=== PATIENT | female | born 1945 | race Caucasian/White ===

== ENCOUNTER → 2018-05-03 07:53 | Outpatient (CLI) | payer MEDICARE, OTHER, SELFPAY ==
--- NOTE | 2018-05-03 | IMM_PTH ---
PATIENT: CYNTHIA WILLS LOC: [facility] U#:[id number] AGE/SX: 79/F ROOM: RE05/03/[address]: Dr. Branden Holloway MD : 1945 BED: DIS: SPEC #: [id number] RECD: 05/04/18 12:13 STATUS: SANDRA REQ #: [id number] NAIMA: 05/03/18 00:[address]: Branden Holloway DEPT: IMMUNOHISTOCHEMISTRY RECD BY: Yudy Azul ENTERED: 05/04/18 12:14 SP TYPE: IMMUNO OTHR DR: Dr. Temi Santos MD Tissues: Right breast, NOS Procedures: CALPONIN-1 (add) CK5-6 (add) CK8 (add) E-CAD (add) HER2 MORE (add) KI-67 (add) P53 (add) VA (add) P40 (add) ER (initial) PHYSICIAN & INSTITUTION [place] [id number] SPECIMEN INFORMATION: Tissue Source: Right breast Clinical Info: Right breast density, mid-depth, 5 o'clock Specimen Number: [id number] #2 CPT code: 38139, 26835 x6, 30909 x3 METHODOLOGY: Deparaffinized sections of prefer/formalin-fixed tissue or PAP/DQ stained slides are incubated with monoclonal/polyclonal antibodies/oligonucleotide probes. Localization is made via biotin free immunoperoxidase method. Appropriate controls are performed and reacted as expected. Results on target cell population are indicated in the following table: RESULTS: ANTIBODY / CLONE RESULT E-Cad (ECH-6) positive CK8 (64bmfeI32) positive CK5-6 (D5 & 1684) negative Ki-67 (30-9) positive, moderate P53 (DO-7) positive, a few cells, weak P40 (BC28) negative Calponin-1 (OP370S) negative MORPHOMETRIC ANALYSIS ER (clone 6F11) >95%, strong VA (clone 16/1E2) 10%, weak Her-2Neu (clone CB11) 1+ The prognostic test for HER2 is performed on formalin-fixed paraffin embedded tissue. A 3+ (positive) staining pattern is defined as intense, homogeneous, complete, circumferential membranous staining in >10% of contiguous tumor cells. A similar weak (2+) staining pattern is interpreted as equivocal. JANNET follow-up testing is recommended for all equivocal cases. Positivity/negativity for ER/VA is reported if > or < 1% of the tumor cells are immuno- reactive, respectively. The ASCO/CAP criteria is used for scoring. Reference: Journal of Clinical Oncology, 2013; 31:0367-9717 & 2010; 16:1372-1242. Duration of fixation: 10 Hrs; Sample Adequate: Yes. These assays have not been validated on decalcified tissues. Results should be interpreted with caution given the likelihood of false negativity on decalcified specimens. These tests were developed and their performance characteristics determined by [facility]. They may not have been cleared or approved by the U.S. Food and Drug Administration. The FDA has determined that such clearance or approval is not necessary. INTERPRETATION: Right breast, stereotactic core biopsy: Invasive ductal carcinoma, nuclear grade 2-3. Positive for estrogen receptors (favorable prognostic indicator). Positive for progesterone receptors (favorable prognostic indicator). Negative for overexpression of DVJ3rdq. SJ:rosa 05/04/18
--- NOTE | 2018-05-03 08:06 | BI_ITS ---
STEREOTACTIC CORE BIOPSY REASON FOR EXAM: Female, 72 years old. Irregular nodular density in the inferior deep medial portion of the right breast. PERTINENT HISTORY: Non-contributory. COMPARISON: None. TECHNIQUE: (All elements of maximal sterile barrier technique followed, including US elements as applicable) Upon arrival to the breast imaging department the patient's identification was confirmed and the RIGHT breast was marked according to time-out protocol. Stereotactic core biopsy and clip placement, to include potential risks and complications, was explained in full to the patient. Written and verbal consent were obtained prior to initiation of the procedure. The patient was placed in prone position on the stereotactic biopsy table with the RIGHT breast in craniocaudal compression. Crabber and stereotactic views were then obtained for targeting. The RIGHT breast was prepped and draped in standard sterile fashion and local anesthesia was obtained with 1% buffered lidocaine. A small dermatotomy was then made to introduce the core biopsy needle. Multiple core samples were obtained with a 8 gauge vacuum assisted core biopsy needle. . A titanium clip was then deployed into the biopsy cavity. Upon completion of the procedure hemostasis was obtained and sterile dressing was applied. The patient tolerated the entire procedure without immediate complication and was discharged from the breast imaging department in good condition. BI/Stereo Breast Biopsy 1st Archie IMPRESSION: Stereotactic core biopsy for irregular nodule in the RIGHT breast without complication. Electronically Signed: Star Salas MD at 10:17 EST Tel [phone], Service support ,
--- NOTE | 2018-05-03 08:45 | BRBX_PTH ---
PATIENT: CYNTHIA WILLS LOC: [facility] U#:[id number] AGE/SX: 79/F ROOM: RE05/03/[address]: Dr. Branden Holloway MD : 1945 BED: DIS: SPEC #: [id number] RECD: 05/03/18 09:41 STATUS: SANDRA BRIAN #: [id number] NAIMA: 05/03/18 08:[address]: Branden Holloway DEPT: SURGICAL PATHOLOGY RECD BY: Sandra Ventura ENTERED: 05/03/18 11:47 SP TYPE: BREAST BX OTHR DR: Dr. Temi Santos MD Tissues: Right breast, NOS Procedures: Surgery Specimen Level IV HEADER OPERATION: Right breast stereotactic biopsy PRE-OP DIAGNOSIS: Right breast density mid-depth 4 `o'clock TISSUE SUBMITTED: Right breast, core tissue ISCHEMIC TIME: 1 minute FIXATION TIME: 10 hours MICROSCOPIC DIAGNOSIS Right breast, mid-depth 4 `o'clock density, stereotactic core biopsy: Invasive ductal carcinoma, nuclear grade 2-3 (0.2 cm in greatest length). See comment. PANCHO:rosa 05/04/18 COMMENT Immunohistochemistry ([id number]) supports the above diagnosis. ER/AR/Bge3xsu studies are being performed on sections of tumor and the results from this study will be reported separately ([id number]). Focal calcification is noted in the benign breast tissue. Case has been reviewed in consultation with Dr. Fan who concurs with the above diagnosis. IDC:AM MICROSCOPIC DESCRIPTION Slides are reviewed. GROSS DESCRIPTION Received is one container labeled with the patient's name and not further designated. The specimen consists of multiple elongated fragments of rivas-yellow fibroadipose tissue that in aggregate measure 5 x 3 x 0.3 cm. The entire specimen is submitted in two cassettes. / PANCHO:rosa 05/03/18 TC:0 CPT: 31657
--- OUTSIDE RECORDS SUMMARY | 2018-06-28 12:26 | XMS RPT_ITS ---
:1945 Author Organization OHIP Support Name Relationship Address Phone MUKUND VELARDE Unavailable [address] + [place], [place] [phone] NOT GIVEN Unavailable MINISTRIES Unavailable ESTELLA ESPINOSA Unavailable [address] + [place] [address] DEBRA VELARDE Unavailable . + [place] [address] R Unavailable Unavailable Unavailable NOT GIVEN Unavailable MINISTRIES Unavailable VELARDEGENNAROMUKUND Unavailable [address] + [place], [place] [phone] NOT GIVEN Unavailable MINISTRIES Unavailable ESTELLA ESPINOSA Unavailable [address] + [place] [address] DEBRA VELARDE Unavailable Unavailable + R Unavailable Unavailable Unavailable VELARDE MUKUND Unavailable [address] + [place], [place] [phone] NOT GIVEN Unavailable MINISTRIES Unavailable VELARDE MUKUND Unavailable [address] + [place], [place] [phone] NOT GIVEN Unavailable MINISTRIES Unavailable VELARDE MUKUND Unavailable [address] + [place], [place] [phone] NOT GIVEN Unavailable MINISTRIES Unavailable VELARDE MUKUND Unavailable [address] + [place], [place] [phone] NOT GIVEN Unavailable MINISTRIES Unavailable NOT GIVEN Unavailable MINISTRIES Unavailable VELARDE MUKUND Unavailable [address] + [place], [place] [phone] NOT GIVEN Unavailable MINISTRIES Unavailable VELARDE MUKUND Unavailable [address] + [place], [place] [phone] NOT GIVEN Unavailable MINISTRIES Unavailable VELARDE, MUKUND Unavailable [address] + [place], [place] [phone] NOT GIVEN Unavailable MINISTRIES Unavailable Mary Howe Unavailable Unavailable + Velarde, Mukund Unavailable Unavailable + VELARDE, MUKUND Unavailable [address] + [place], [place] [phone] NOT GIVEN Unavailable MINISTRIES Unavailable NOT GIVEN Unavailable MINISTRIES Unavailable VELARDE, MUKUND Unavailable [address] + [place], [place] [phone] NOT GIVEN Unavailable MINISTRIES Unavailable Care Team Providers Name Role Phone Nathan Vidales Attending Unavailable PROVIDER, UNKNOWN Referring Unavailable No, PCP Primary Care Unavailable GEORGES CHÁVEZ Attending Unavailable GEORGES CHÁVEZ Referring Unavailable NATHAN NG JR Attending Unavailable GEORGES CHÁVEZ Referring Unavailable CINTHYA VELARDE Admitting Unavailable CINTHYA VELARDE Attending Unavailable SUKI SANTOS MD Referring Unavailable SUKI SANTOS MD Consulting Unavailable VELARDE, CINTHYA Primary Care Unavailable PROVIDER, UNKNOWN Consulting Unavailable PROVIDER, UNKNOWN Consulting Unavailable PROVIDER, UNKNOWN Consulting Unavailable SUKI SANTOS MD Admitting Unavailable SUKI SANTOS MD Attending Unavailable SUKI SANTOS MD Consulting Unavailable SUKI SANTOS MD Primary Care Unavailable PROVIDER, UNKNOWN Consulting Unavailable PROVIDER, UNKNOWN Consulting Unavailable PROVIDER, UNKNOWN Consulting Unavailable SUKI SANTOS MD Admitting Unavailable SUKI SANTOS MD Attending Unavailable SUKI SANTOS MD Primary Care Unavailable SUKI SANTOS MD Consulting Unavailable PROVIDER, UNKNOWN Consulting Unavailable PROVIDER, UNKNOWN Consulting Unavailable PROVIDER, UNKNOWN Consulting Unavailable VELARDE CINTHYA Admitting Unavailable VELARDE CINTHYA Attending Unavailable SUKI SANTOS MD Consulting Unavailable VELARDE, CINTHYA Primary Care Unavailable PROVIDER, UNKNOWN Consulting Unavailable PROVIDER, UNKNOWN Consulting Unavailable PROVIDER, UNKNOWN Consulting Unavailable OSMIN Admitting Unavailable OSMIN Attending Unavailable SUKI SANTOS MD Consulting Unavailable OSMIN Primary Care Unavailable PROVIDER, UNKNOWN Consulting Unavailable PROVIDER, UNKNOWN Consulting Unavailable PROVIDER, UNKNOWN Consulting Unavailable VELARDE, CINTHYA Admitting Unavailable PRACHI CINTHYA Attending Unavailable SUKI SANTOS MD Consulting Unavailable VELARDE, CINTHYA Primary Care Unavailable PROVIDER, UNKNOWN Consulting Unavailable PROVIDER, UNKNOWN Consulting Unavailable PROVIDER, UNKNOWN Consulting Unavailable SUKI SANTOS MD Admitting Unavailable LATOUVirgen, SUKI COUCH Attending Unavailable VELARDE, CINTHYA Referring Unavailable LATOUF, SUKI COUCH Consulting Unavailable LATOUF, SUKI COUCH Primary Care Unavailable PROVIDER, UNKNOWN Consulting Unavailable PROVIDER, UNKNOWN Consulting Unavailable PROVIDER, UNKNOWN Consulting Unavailable LATOUF, SUKI COUCH Admitting Unavailable LATOUF, SUKI COUCH Attending Unavailable LATOUVirgen, SUKI COUCH Consulting Unavailable LATOUVirgen, SUKI COUCH Primary Care Unavailable PROVIDER, UNKNOWN Consulting Unavailable PROVIDER, UNKNOWN Consulting Unavailable PROVIDER, UNKNOWN Consulting Unavailable VELARDE, CINTHYA Admitting Unavailable VELARDE, CINTHYA Attending Unavailable LATOUF, SUKI COUCH Consulting Unavailable VELARDE, CINTHYA Primary Care Unavailable PROVIDER, UNKNOWN Consulting Unavailable PROVIDER, UNKNOWN Consulting Unavailable PROVIDER, UNKNOWN Consulting Unavailable VELARDE, CINTHYA Admitting Unavailable VELARDE, CINTHYA Attending Unavailable LATOUF, SUKI COUCH Consulting Unavailable VELARDE, CINTHYA Primary Care Unavailable PROVIDER, UNKNOWN Consulting Unavailable PROVIDER, UNKNOWN Consulting Unavailable PROVIDER, UNKNOWN Consulting Unavailable LATOUF, SUKI COUCH Admitting Unavailable LATOUF, SUKI COUCH Attending Unavailable PAUL BURR Referring Unavailable LATOUF, SUKI COUCH Consulting Unavailable LATOUF, SUKI COUCH Primary Care Unavailable PROVIDER, UNKNOWN Consulting Unavailable PROVIDER, UNKNOWN Consulting Unavailable PROVIDER, UNKNOWN Consulting Unavailable LATOUVirgen, SUKI COUCH Admitting Unavailable LATOUF, SUKI COUCH Attending Unavailable LATOUF, SUKI COUCH Consulting Unavailable LATOUF, SUKI COUCH Primary Care Unavailable PROVIDER, UNKNOWN Consulting Unavailable PROVIDER, UNKNOWN Consulting Unavailable PROVIDER, UNKNOWN Consulting Unavailable LATOUF, SUKI COUCH Admitting Unavailable LATOUF, SUKI COUCH Attending Unavailable LATOUVirgen, SUKI COUCH Consulting Unavailable LATOUVirgen, SUKI COUCH Primary Care Unavailable PROVIDER, UNKNOWN Consulting Unavailable PROVIDER, UNKNOWN Consulting Unavailable PROVIDER, UNKNOWN Consulting Unavailable VELARDE, CINTHYA Admitting Unavailable VELARDE, CINTHYA Attending Unavailable LATOUF, SUKI COUCH Consulting Unavailable VELARDE, CINTHYA Primary Care Unavailable PROVIDER, UNKNOWN Consulting Unavailable PROVIDER, UNKNOWN Consulting Unavailable PROVIDER, UNKNOWN Consulting Unavailable Sherrell Calvillo Attending Unavailable VELARDE, CINTHYA Referring Unavailable VELARDE, CINTHYA Attending Unavailable LATOUF, BUTROS Primary Care Unavailable PROBLEMS PROBLEMS DATE TYPE CONDITION / CODE ATTENDING STATUS SOURCE 05/23/2018 Unknown I34.1 - Sherrell Calvillo Nonrheumatic mitral Community (valve) prolapse / Hospital I34.1(ICD-10) Repository 05/23/2018 Unknown C50.311 - Malignant Sherrell Calvillo neoplasm of [facility] Hospital quadrant of right Repository female breast / C50.311(ICD-10) 05/23/2018 Unknown Z17.0 - Estrogen Sherrell Calvillo Active [facility] receptor positive Community status [ER+] / Hospital Z17.0(ICD-10) Repository 05/16/2018 Principle Abnormal finding of LATOUF, BUTROS Active Asaf Pomerene Diagnosis blood chemistry, [facility] unspecified / Hospital R799(ICD-10) Repository 05/16/2018 Principle Essential (primary) LATOUF, BUTROS Active Asaf Pomerene Diagnosis hypertension / [facility] I10(ICD-10) Hospital Repository 05/16/2018 Secondary Pure LATOUF, BUTROS Active Asaf Pomerene Diagnosis hypercholesterolemi [facility] a, unspecified / Hospital E7800(ICD-10) Repository 05/16/2018 Secondary Hypothyroidism, LATOUF, BUTROS Active As[facility] Pomerene Diagnosis unspecified / [facility] E039(ICD-10) Hospital Repository 05/03/2018 Unknown R92.8 - Other CINTHYA VELARDE Active [place] abnormal and Community inconclusive Hospital findings on Repository diagnostic imaging of breast / R92.8(ICD-10) 04/22/2018 Admitting Essential (primary) LATOUF, BUTROS Active Asaf Pomerene Diagnosis hypertension / [facility] I10(ICD-10) Hospital Repository 04/04/2018 Admitting Other abnormal and LATOUF, BUTROS Active Asaf Pomerene Diagnosis inconclusive [facility] findings on Hospital diagnostic imaging Repository of breast / R928(ICD-10) 04/04/2018 Principle Other abnormal and LATOUF, BUTROS Active [facility] Diagnosis inconclusive [facility] findings on Hospital diagnostic imaging Repository of breast / R928(ICD-10) 11/01/2017 Admitting Neoplasm of CINTHYA VELARDE Active [facility] Diagnosis uncertain behavior [facility] / Hospital D4862(ICD-10) Repository 11/01/2017 Principle Neoplasm of CINTHYA VEALRDE Active [facility] Diagnosis uncertain behavior [facility] of [facility] breast / Hospital D4862(ICD-10) Repository 11/01/2017 Secondary Neoplasm of CINTHYA VELARDE Active [facility] Diagnosis uncertain behavior [facility] of right breast / Hospital D4861(ICD-10) Repository 10/18/2017 Admitting 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, [facility]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 [facility] / I18931(ICD-10) Hospital Repository 10/18/2017 Principle 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, left eye [facility] / V07514(ICD-10) Hospital Repository 09/16/2017 Admitting Unspecified visual Nathan Vidales Active [facility] Diagnosis loss / System H54.7(ICD-10) Repository 09/16/2017 Admitting Unspecified retinal Nathan Vidales [facility] Diagnosis disorder / System H35.9(ICD-10) Repository 08/23/2017 Active Unknown / VOGELBAUM, Active Ying UNK(Unknown) [facility] [place] Repository 08/11/2017 Principle 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 / [facility] D320(ICD-10) Hospital Repository 07/19/2017 Admitting Gastro-esophageal CINTHYA VELARDE Active [facility] Diagnosis reflux disease [facility] without esophagitis Hospital / K219(ICD-10) Repository 07/19/2017 Principle Polyp of stomach CINTHYA VELARDE Active Asaf Pomerene Diagnosis and duodenum / [facility] K317(ICD-10) Hospital Repository 07/19/2017 Secondary Gastritis, CINTHYA VELARDE Active [facility] Diagnosis unspecified, [facility] without bleeding / Hospital K2970(ICD-10) Repository 07/19/2017 Secondary Diaphragmatic CINTHYA VELARDE Active [facility] P[facility] Diagnosis hernia without [facility] obstruction or Hospital gangrene / Repository K449(ICD-10) 07/19/2017 Secondary Esophagitis, CINTHYA VELARDE Active Asaf Pomerene Diagnosis unspecified / [facility] K209(ICD-10) Hospital Repository 07/19/2017 Secondary Essential (primary) CINTHYA VELARDE Active Asaf Pomerene Diagnosis hypertension / [facility] I10(ICD-10) Hospital Repository PROCEDURES PROCEDURES No Procedure Records FoundRESULTS RESULTS NM BONE SCAN WHOLE Observed: 05/23/2018 Status: F Source: [facility] BODY 2:27 PM [facility] REPOSITORY [place] [address] Patient: CYNTHIA MELENDEZ Phone#: : 1945 Age: 72 Gender: F Pt. Type: Out Account: [id number] Location: [id number] Ordering: CINTHYA VELARDE Exam Date: 05/23/2018/11:55 Family Phys: SUKI SANTOS Charge Code: [id number] Physician: SHERRELL CALVILLO [place] Order #: [id number] DLP Dose#: PROCEDURE: BONE SCAN WHOLE BODY COMPARISON: None. INDICATIONS: Right breast cancer TECHNIQUE: After obtaining the patient's consent, 24.9 mCi Technetium 99m MDP was injected intravenously. Images were obtained approximately two hours later. PHARMACEUTICAL: Technetium 99m MDP (see dose listed above). FINDINGS: ABNORMALITIES: Minimal increased radiopharmaceutical activity is present at the knees and ankles bilaterally and is consistent with degenerative process. No other abnormal foci of radiopharmaceutical activity are identified. OTHER: Negative. CONCLUSION: 1. Findings consistent with degenerative change at the knees and ankles bilaterally. 2. No other abnormal foci are identified. Dictated by: Magaly Snyder MD on 05/23/2018 at 15:08 Approved by: Magaly Snyder MD on 05/23/2018 at 15:08 SURGERY VISIT REPORT Observed: 05/22/2018 Status: F Source: [place] 5:13 PM [facility] [address] [place] [address]. [address] [place] [address] OFFICE VISIT Date of Service: 05/22/18 MR#: [id number] Acct: [id number] Name: CYNTHIA MELENDEZ Rep #: [id number] : 1945 Provider: Sherrell Calvillo MD Age/Sex: 72/F Location: [facility] Status: Signed Intake Vital Signs05/22/18 Height 1 in 05/22/18 Weight: 146 lb 2 oz 05/22/18 Body Mass Index (BMI) 009760.9 05/22/18 Blood Pressure 142/83 H Intake Visit Reasons: INVASIVE DUCTAL CARCINOMA R BRST Chief Complaint: right breast cancer On Air Announcer Required: No Is patient in pain?: No Allergies aspirin [ASA] Allergy (Severe, Verified 05/22/18 15:12) respiratory distress meperidine [From Demerol] Adverse Reaction (Intermediate, Verified 05/22/18 15:12) GI upset morphine Adverse Reaction (Mild, Verified 05/22/18 15:12) GI upset Medications calcium carbonate 500 mg calcium (1,250 mg) chewable tablet 500 mg PO BID tab 05/22/18 [History Confirmed 05/22/18] cholecalciferol (vitamin D3) 400 unit capsule 800 unit PO DAILY cap 05/22/18 [History Confirmed 05/22/18] chondroitin sulfate A 250 mg capsule 250 mg PO BID 05/22/18 [History Confirmed 05/22/18] glucosamine HCl 1,500 mg tablet 1,500 mg PO DAILY 05/22/18 [History Confirmed 05/22/18] levothyroxine 75 mcg capsule 75 mcg PO DAILY 05/22/18 [History Confirmed 05/22/18] metoprolol succinate ER 25 mg capsule sprinkle, ext. release 24 hr 12.5 mg PO DAILY ea 05/22/18 [History Confirmed 05/22/18] omega-3 fatty acids 1,000 mg capsule 1,000 mg PO DAILY 05/22/18 [History Confirmed 05/22/18] pantoprazole 40 mg tablet,delayed release 40 mg PO DAILY 05/22/18 [History Confirmed 05/22/18] vitamin B complex tablet 1 tab PO DAILY 05/22/18 [History Confirmed 05/22/18] vitamin E mixed 400 unit capsule unit PO cap 05/22/18 [History Confirmed 05/22/18] Is last menstrual period known: No Post menopausal: Yes Patient : No PFSH Medical History Breast cancer, right (Acute) Breast cancer (Acute 04/2018) Cardiac murmur (Acute) GERD (gastroesophageal reflux disease) (Acute) Hemorrhoids (Acute) Hypothyroidism (Acute) MVP (mitral valve prolapse) (Acute) HTN (hypertension) (Chronic) Surgical History History of back surgery (Acute) History of breast biopsy (Acute) History of cholecystectomy (Acute) History of eye surgery (Acute) History of repair of right rotator cuff (Acute) Family History Mother Breast cancer Sister Cancer pancreas Father Heart disease Social History Smoking Status: Never smoker HPI HPI HPI: CYNTHIA MELENDEZ, is a 72 F who presents to the office today for surgical care regarding biopsy-proven lower inner quadrant right breast cancer. The patient has had recent care at [facility] in [facility]. August 2017 she had screening mammography. I do not yet have a disc of those results. August 17, 2017 a right breast ultrasound suggested that there is a solid appearing mass likely benign 10 o'clock position right breast 5 x 4 x 7 mm and in the right breast there was a simple benign-appearing cyst at 3 o'clock position. The finding however does not appear to correlate with the mammogram finding and a MRI was recommended. Subsequently on November 01, 2017 a bilateral breast MRI was obtained. This demonstrated in the lower inner right breast a 9 x 9 x 8 mm irregular marginated mass correlating with the mammographic finding with mild spiculation. This was felt to be suspicious for neoplasm. Surgical biopsy with mammographic guided wire localization was recommended. It is of additional note that in the mid upper outer right breast there is a 5 mm mildly lobulated smoothly marginated density. Findings were felt to be more consistent with a benign lesion including an intramammary lymph node. November 18, 2017 the patient had a wire localized excisional biopsy upper inner right breast. Final pathology showed no evidence of atypical hyperplasia or malignancy. The patient states that in order to stay in line with her routine imaging she subsequently had bilateral mammograms read on March 28, 2018. The left breast was not felt to be remarkable. The right breast was felt to have a lower inner right breast 4 o'clock position 10 x 10 x 11 mm density which was felt to be suspicious Subsequently per on May 03, 2018 the patient underwent a stereotactic needle core biopsy lower inner right breast. Final pathology shows invasive ductal carcinoma nuclear grade 2-3 0.2 cm in greatest length. This was right breast 4 o'clock position mid depth. Estrogen receptors greater than 95%. Progesterone receptor 10% weak. HER-2/mirella 1+. 72-year-old female. G0. Menarche at age 12. Family history notable for that her mother had breast cancer. The patient had been on estrogen replacement therapy but stopped at age 52. She states that in 1979 she had remote bilateral breast excisional biopsies which were benign. Her other pertinent past medical history includes a history of mitral valve prolapse. She states that she has not had an echocardiogram for approximately 10 years. She presents here to discuss whether she proceeds with a right mastectomy or possible breast conservation surgery Surgeon is Dr. Cinthya Velarde and her primary care physician is . ROS General General: Yes breast cancer; no weight change, appetite, fatigue, colon cancer or weakness HEENT HEENT: Yes eye injury; no difficulty swallowing, eye surgery, swollen glands or hoarseness Endo Endocrine: No thyroid disease, diabetes mellitus, thyroid cancer, Hair loss, heat intolerance or cold intolerance Breast Breast: Yes abnormal mammogram and abnormal US; no left breast lump, right breast lump, nipple discharge, breast pain or breast enlargement Cardio Cardiovascular: Yes murmur; no pacemaker, heart disease, atrial fibrillation, high blood pressure, heart attack, heart stent, palpitations, shortness of breat with exertion or chest pain Resp Respiratory: No shortness of breath, No sleep apnea, No cough, No COPD, No asthma, No emphysema, No wheezing Gastro Gastrointestinal: No abdominal pain, No nausea or vomiting, No diarrhea, No constipation, No blood in stool, No acid reflux, Yes hemorrhoids, No ulcers, No gallbladder problem, No black,tarry stools Eric Hematologic: No blood thinners, No blood disorders, No bleeding, No anemia, No blood clots Neuro Neurologic: No weakness Exam Const General: cooperative, healthy appearing, comfortable, no acute distress Nutritional Appearance: average body habitus Orientation: alert, awake, oriented x3 HENMT Head: normal to inspection Chest Breast Palpation: No nipple discharge Other: Right breast: Nicely healed curvilinear circumareolar incision 12:00 right breast. Nondescript fibrous change lower inner right breast. No clear distortion. Evidence of some soft tissue loss upper inner right breast. No palpable axillary or clavicular adenopathy. No nipple discharge. Resp Effort AND Inspection: normal respiratory effort Auscultation: clear to auscultation bilaterally Cardio Rate: regular rate Rhythm: regular rhythm Heart Sounds: murmur Other: Soft 2/6 systolic ejection murmur GI Inspection: normal to inspection Palpation: soft, no hepatosplenomegaly Auscultation: normal bowel sounds Musc Cervical Spine: normal cervical lordosis Skin General: no rashes or lesions noted Neuro Cranial Nerves: CN's II-XI intact bilaterally Extrem General: no clubbing, cyanosis or edema Psych Affect: normal affect Assessment AND Plan Problems 1. Malignant neoplasm of lower-inner quadrant of right breast of female, estrogen receptor positive C50.311; Z17.0 Plan Invasive ductal carcinoma lower inner right breast. The patient on MRI has what is suggested to be a benign small finding in the upper outer right breast. Previous ultrasound also suggests similar finding. Patient has a history of mitral valve prolapse I had an extensive discussion with patient today regarding treatment options. In detail I discussed with her the technique of stereotactic wire localization lower inner right breast with subsequent lumpectomy and right axillary nuclear medicine and blue dye sentinel lymph node biopsy. She would then subsequently likely radiotherapy. I compared and contrasted this to a right total mastectomy with right axillary nuclear medicine and blue dye sentinel lymph node biopsy. She is aware of the technique, benefits, risks, alternatives. The patient was initially well established in her mind that she would proceed with a right mastectomy. She suggests initially that the transport to receive radiation therapy would be ulnar some. She wants to be reassured however that there is a breast cancer support network and external prostheses to assist her. We will place her in connection with patient navigator Lona Contreras. She was available to assist her with products available and support services available. I recommended the patient that we obtain a echocardiogram. She requests that that be performed in [facility]. The patient will have further time to decide whether she wants to have right breast conservation surgery or right breast mastectomy. If she elects the conservation surgery then I will need to strongly consider whether any attempt at doing a biopsy of the upper outer quadrant right breast lesion which was demonstrated August 17, 2017 as being at 10 o'clock position 5 x 4 x 7 mm in size on ultrasound with likely benign morphology. This imagery was compared to previous films of April 20, 2017. There was additional benign-appearing cyst at the 3 o'clock position right breast measuring 3 x 5 x 2 mm. As noted above the ultrasound findings did not seem to correlate with the previous mammogram findings. We will obtain images from [facility]. The patient would like to schedule surgery for early June. She has not yet decided on a definitive procedure. Cc: Dr. Cinthya Velarde and Dr. Suki Calvillo M.D., F.A.C.S. Orders Orders: Coding Level of Care Code Off vis,new,level 4 Diagnoses Malignant neoplasm of lower-inner quadrant of right breast of female, estrogen receptor positive C50.311; Z17.0 Breast location: lower inner quadrant of breast Estrogen receptor status: positive Patient sex: female 05/22/18 1713 <Electronically signed by Sherrell Calvillo MD> Date Sherrell Calvillo MD Cosigner Signature: Date (if applicable) CC: Suki Santos; CINTHYA VELARDE BREAST BIOPSY Observed: 05/03/2018 Status: F Source: [place] (CHOOSE SITE) 8:45 AM [facility] REPOSITORY Patient: CYNTHIA MELENDEZ : 1945 (72/F) Acct Num: [id number] Phys: CINTHYA VELARDE Unit Num: [id number] Loc: [facility] Specimen: [id number] Received: 05/03/1841 Spec Type: BREAST BX TISSUES 1 TISSUES: Right breast, NOS COMMENT Immunohistochemistry ([id number]) supports the above diagnosis. ER/LA/Njs0ikv studies are being performed on sections of tumor and the results from this study will be reported separately ([id number]). Focal calcification is noted in the benign breast tissue. Case has been reviewed in consultation with Dr. Fan who concurs with the above diagnosis. IDC:AM GROSS DESCRIPTION Received is one container labeled with the patient's name and not further designated. The specimen consists of multiple elongated fragments of rivas-yellow fibroadipose tissue that in aggregate measure 5 x 3 x 0.3 cm. The entire specimen is submitted in two cassettes. / PANCHO:rosa 05/03/18 TC:0 CPT: 91945 HEADER OPERATION: Right breast stereotactic biopsy PRE-OP DIAGNOSIS: Right breast density mid-depth 4 `o'clock TISSUE SUBMITTED: Right breast, core tissue ISCHEMIC TIME: 1 minute FIXATION TIME: 10 hours MICROSCOPIC DESCRIPTION Slides are reviewed. MICROSCOPIC DIAGNOSIS Right breast, mid-depth 4 `o'clock density, stereotactic core biopsy: Invasive ductal carcinoma, nuclear grade 2-3 (0.2 cm in greatest length). See comment. PANCHO:rosa 05/04/18 Signed Odell Dupree 05/04/18 <signature on file> Performed By: #### PBRBX #### [facility] [address] [place], [address] STEREO BREAST Observed: 05/03/2018 Status: F Source: [place] BIOPSY 8:07 AM [facility] REPOSITORY [facility] Imaging Services [address] [place] [address] Stereo Breast Biopsy 1st Les MR#: [id number] Acct: [id number] Name: CYNTHIA MELENDEZ Rep #: [id number] : 1945 F 72 From: Star Salas MD PCP: Suki Santos Status: REG CLI Study: Stereo Breast Biopsy Date of Exam: 05/03/18 Exam# [id number] Ordering Dr: Cinthya Velarde STEREOTACTIC CORE BIOPSY REASON FOR EXAM: Female, 72 years old. Irregular nodular density in the inferior deep medial portion of the right breast. PERTINENT HISTORY: Non-contributory. COMPARISON: None. TECHNIQUE: (All elements of maximal sterile barrier technique followed, including US elements as applicable) Upon arrival to the breast imaging department the patient's identification was confirmed and the RIGHT breast was marked according to time-out protocol. Stereotactic core biopsy and clip placement, to include potential risks and complications, was explained in full to the patient. Written and verbal consent were obtained prior to initiation of the procedure. The patient was placed in prone position on the stereotactic biopsy table with the RIGHT breast in craniocaudal compression. Lithographic Stripper and stereotactic views were then obtained for targeting. The RIGHT breast was prepped and draped in standard sterile fashion and local anesthesia was obtained with 1% buffered lidocaine. A small dermatotomy was then made to introduce the core biopsy needle. Multiple core samples were obtained with a 8 gauge vacuum assisted core biopsy needle. . A titanium clip was then deployed into the biopsy cavity. Upon completion of the procedure hemostasis was obtained and sterile dressing was applied. The patient tolerated the entire procedure without immediate complication and was discharged from the breast imaging department in good condition. BI/Stereo Breast Biopsy IMPRESSION: Stereotactic core biopsy for irregular nodule in the RIGHT breast without complication. Electronically Signed: Star Salas MD at 10:17 EST Tel [phone], Service support , CC: Suki Santos; CINTHYA VELARDE Statistical Clerk: Signed IMMUNOHISTOCHEMISTRY Observed: 05/03/2018 Status: F Source: [place] 12:00 AM [facility] REPOSITORY Patient: CYNTHIA MELENDEZ : 1945 (72/F) Acct Num: [id number] Phys: CINTHYA VELARDE Unit Num: [id number] Loc: B[facility]AD Specimen: [id number] Received: 05/04/181212 Spec Type: IMMUNO TISSUES 1 TISSUES: Right breast, NOS SPECIMEN INFORMATION: Tissue Source: Right breast Clinical Info: Right breast density, mid-depth, 5 o'clock Specimen Number: [id number] #2 CPT code: 72385, 67434 x6, 21645 x3 METHODOLOGY: Deparaffinized sections of prefer/formalin-fixed tissue or PAP/DQ stained slides are incubated with monoclonal/polyclonal antibodies/oligonucleotide probes. Localization is made via biotin free immunoperoxidase method. Appropriate controls are performed and reacted as expected. Results on target cell population are indicated in the following table: RESULTS: ANTIBODY / CLONE RESULT E-Cad (ECH-6) positive CK8 (83qvatP29) positive CK5-6 (D5 AND 1684) negative Ki-67 (30-9) positive, moderate P53 (DO-7) positive, a few cells, weak P40 (BC28) negative Calponin-1 (PP673F) negative MORPHOMETRIC ANALYSIS ER (clone 6F11) >95%, strong LA (clone 16/1E2) 10%, weak Her-2Neu (clone CB11) 1+ The prognostic test for HER2 is performed on formalin-fixed paraffin embedded tissue. A 3+ (positive) staining pattern is defined as intense, homogeneous, complete, circumferential membranous staining in >10% of contiguous tumor cells. A similar weak (2+) staining pattern is interpreted as equivocal. JANNET follow- up testing is recommended for all equivocal cases. Positivity/negativity for ER/ LA is reported if > or < 1% of the tumor cells are immuno- reactive, respectively. The ASCO/CAP criteria is used for scoring. Reference: Journal of Clinical Oncology, 2013; 31:1493-1247 AND 2009; 16:2784- 2796. Duration of fixation : 10 Hrs; Sample Adequate: Yes. These assays have not been validated on decalcified tissues. Results should be interpreted with caution given the likelihood of false negativity on decalcified specimens. These tests were developed and their performance characteristics determined by [facility]. They may not have been cleared or approved by the U.S. Food and Drug Administration. The FDA has determined that such clearance or approval is not necessary. INTERPRETATION: Right breast, stereotactic core biopsy: Invasive ductal carcinoma, nuclear grade 2-3. Positive for estrogen receptors (favorable prognostic indicator). Positive for progesterone receptors (favorable prognostic indicator). Negative for overexpression of ZOT6kwd. SJ:rosa 05/04/18 PHYSICIAN AND INSTITUTION [address] [address] Signed Odell Dupree 05/04/18 <signature on file> Performed By: #### PIMM #### [facility] [address] [place] [address]. [place], [place], [address] CMP WITH EGFR Collected: 04/22/2018 Status: F Source: [facility] 6:41 AM [facility] REPOSITORY TYPE CODE TESTS RESULT OUT OF RANGE REFERENCE UNITS LAB CMP with eGFR(LOINC) CMP with eGFR Result Comment: COMPREHENSIVE METABOLIC PANEL LAB SODIUM(LOINC) 136 - 145 mmol/l SODIUM 139 LAB POTASSIUM(LOINC) 3.5 - 5.1 mmol/L POTASSIUM 3.8 LAB CHLORIDE(LOINC) 98 - 107 mmol/L CHLORIDE 104 LAB CO2(LOINC) 21.0 - mmol/L 31.0 CO2 28.2 LAB GLUCOSE(LOINC) 74 - 106 mg/dl GLUCOSE 101 LAB BUN(LOINC) 6 - 20 mg/dl BUN High 31 LAB CREATININE(LOINC) 0.6 - 1.2 mg/dl CREATININE 1.0 LAB AST/SGOT(LOINC) 13 - 39 U/L AST/SGOT 21 LAB ALK PHOS(LOINC) 38 - 126 U/L ALK PHOS 38 LAB CALCIUM(LOINC) 8.6 - mg/dl 10.2 CALCIUM 9.8 LAB TOTAL 6.4 - 8.3 g/dl PROTEIN(LOINC) TOTAL PROTEIN 7.4 LAB ALBUMIN(LOINC) 3.4 - 4.8 g/dL ALBUMIN 4.2 LAB GLOBULIN(LOINC) 1.5 - 3.8 G/DL GLOBULIN 3.2 LAB A/G RATIO(LOINC) 0.9 - 1.6 A/G RATIO 1.3 LAB TOTAL BILI(LOINC) 0.0 - 1.5 mg/dl TOTAL BILI 0.5 LAB B/C RATIO(LOINC) 0 - 30 ratio B/C High RATIO 31 LAB ALT/SGPT(LOINC) 8 - 35 U/L ALT/SGPT 21 LAB ANION GAP(LOINC) 10 - 20 mmol/L ANION GAP 11 LAB AGE(LOINC) years AGE 72 LAB eGFR(LOINC) 60 - 999 ML/MINUTE eGFR Low 54 LAB eGFR(AA)(LOINC) 60 - 999 ML/MINUTE eGFR(AA) >60 Result Comment: ACCORDING TO THE NATIONAL KIDNEY DISEASE EDUCATION PROGRAM(NKDE), A NORMAL eGFR IS A VALUE GREATER THAN OR EQUAL TO 60 ML/MIN/1.73 SQ METERS. CHRONIC KIDNEY DISEASE: <60mL/MIN/1.73 SQ METERS KIDNEY FAILURE: <15mL/MIN/1.73 SQ METERS THIS TEST SHOULD ONLY BE USED FOR PATIENTS 18 YEARS OF AGE AND OLDER. Performed By: #### [id number] #### [place] [address] TSH Collected: 04/22/2018 Status: F Source: [facility] 6:41 [facility] REPOSITORY TYPE CODE TESTS RESULT OUT OF RANGE REFERENCE UNITS LAB TSH(LOINC) 0.34 - 5.60 uIU/ml TSH 4.83 Performed By: #### [id number] #### [place] [address] LIPID PROFILE Collected: 04/22/2018 Status: F Source: [facility] 6:41 [facility] REPOSITORY TYPE CODE TESTS RESULT OUT OF REFERENCE UNITS RANGE LAB LIPID PROFILE(LOIN C) LIPID PROFILE Result Comment: LIPID PROFILE LAB TRIGLYCERIDE(LOINC) 0 - 150 mg/dl TRIGLYCERIDE 69 LAB CHOLESTEROL(LOINC) 0 - 200 mg/dl CHOLESTEROL 180 LAB HDL(LOINC) 40 - 60 mg/dl HDL High 67 LAB CHOL/HDL(LOINC) 0.0 - 5.0 CHOL/HDL 2.7 LAB LDL(LOINC) 0 - 129 mg/dl LDL 99 Performed By: #### [id number] #### [facility],[address] [place], [place] [address] BREAST RT Observed: 04/04/2018 Status: F [facility] UN[facility] COM[facility]TE 11:41 AM [place] [address] Patient: CYNTHIA MELENDEZ Phone#: : 1945 Age: 72 Gender: F Pt. Type: Out Account: [id number] Location: [facility] Ordering: SUKI SANTOS Exam Date: 04/04/2018/11:01 Family Phys: PAUL BURR Charge Code: [id number] Physician: CINTHYA VELARDE Bulloch Order #: [id number] DLP Dose#: PROCEDURE: ULTRASOUND BREAST RT COMPARISON: [facility], BREAST RT COMPLETE, 08/17/2017, 13:52. INDICATIONS: Abnormal mammogram TECHNIQUE: Breast ultrasound was performed, with evaluation focusing on all four quadrants. FINDINGS: DIAGNOSTIC CATEGORY 4--SUSPICIOUS FINDINa-LOW SUSPICION FOR MALIGNANCY RIGHT BREAST: No significant suspicious finding. Asymmetry identified on the mammogram is not demonstrated with ultrasound. The mammographic finding may represent scar, residual of the previous nodular focus versus recurrent/new asymmetry. RECOMMENDATIONS: STEREOTACTIC BREAST BIOPSY: RIGHT BREAST. This report was communicated by telephone to Dr. Cinthya Velarde at the dictation time indicated below. PLEASE NOTE: A NORMAL MAMMOGRAM DOES NOT EXCLUDE THE POSSIBILITY OF BREAST CANCER. A CLINICALLY SUSPICIOUS PALPABLE LUMP SHOULD BE BIOPSIED. Dictated by: Magaly Snyder MD on 04/06/2018 at 9:49 Approved by: Magaly Snyder MD on 04/06/2018 at 9:49 MAMM DIGITAL BILAT Observed: 03/28/2018 Status: F [facility] 9:36 AM [place] [address] Patient: CYNTHIA MELENDEZ. Phone#: : 1945 Age: 72 Gender: F Pt. Type: Out Account: [id number] Location: 062 Ordering: SUKI LATOUF Exam Date: 03/28/2018/9:22 Family Phys: CINTHYA VELARDE Charge Code: [id number] Physician: PAUL BURR Bulloch Order #: [id number] DLP Dose#: PROCEDURE: MAMM BILAT DIGITAL DIAGNOSTIC WITH CAD COMPARISON: [facility], BILAT SCREENING, 04/20/2017, 8:46. [facility], RT UNILAT DIAGNOSTIC, 08/17/2017, 14:42. [facility], SURGICAL SPECIMEN, RADIOLOGICAL EXAM, 11/18/2017, 12:34. INDICATIONS: Abnormal ultrasound of breast BREAST COMPOSITION: Scattered fibroglandular densities (25-50% glandular). FINDINGS: DIAGNOSTIC CATEGORY 0--INCOMPLETE ASSESSMENT: NEED ADDITIONAL IMAGING EVALUATION. RIGHT BREAST: FOCAL ASYMMETRY (finding without convex borders usually visible on two orthogonal views), characterized by microlobulated suspicious morphology, mid-breast depth, 4 o'clock position, and 10 x 10 x 11 mm size. The finding is persistent with additional spot compression views and is similar to that identified on prior exam. This may represent residual of previously noted asymmetry versus scar. Additional evaluation by ultrasound will be performed. LEFT BREAST: No significant suspicious finding. Previously noted areas of asymmetry are no longer demonstrated. RECOMMENDATIONS: ULTRASOUND: RIGHT BREAST. We will call the patient back for an ultrasound and provide an additional report. PLEASE NOTE: A NORMAL MAMMOGRAM DOES NOT EXCLUDE THE POSSIBILITY OF BREAST CANCER. A CLINICALLY SUSPICIOUS PALPABLE LUMP SHOULD BE BIOPSIED. THIS FACILITY UTILIZES A REMINDER SYSTEM TO ENSURE THAT ALL PATIENTS RECEIVE REMINDER LETTERS FOR APPOINTMENTS. THIS INCLUDES REMINDERS FOR ROUTINE MAMMOGRAMS, Continued Report - Page 2 of 2 Patient: CYNTHIA MELENDEZ. Phone#: : 1945 Age: 72 Gender: F Pt. Type: Out Account: [id number] Location: 062 Ordering: BUTROS LATOUF Exam Date: 03/28/2018/9:22 Family Phys: CINTHYA VELARDE Charge Code: [id number] Physician: PAUL BURR Bulloch Order #: [id number] DLP Dose#: DIAGNOSITC MAMMOGRAMS, OR OTHER BREAST IMAGING INTERVENTIONS WHEN APPROPRIATE. THIS PATIENT WILL BE PLACED IN THE APPROPRIATE REMINDER SYSTEM. Dictated by: Magaly Snyder MD on 03/28/2018 at 10:11 Approved by: Magaly Snyder MD on 03/28/2018 at 10:11 OPERATIVE PROCEDURES Observed: 11/20/2017 Status: F Source: [facility] 3:02 AM [facility] OPERATIVE REPORT NAME ACCOUNT SEX AGE ADMIT DISCHARGE PT MED. RECORD# NUMBER DATE DATE TYPE CYNTHIA MELENDEZ [id number] F 72 11/18/17 11/18/17 2 J [id number] ROOM: [facility] DATE OF : 1945 DICTATING PHYSICIAN: Cinthya Velarde DATE OF SURGERY: November 18, 2017 SURGEON: Cinthya Velarde MD METAL CUTTER: VILMA Sagastume ANESTHESIOLOGIST: Natalie Ivey MD ANESTHETIC: Local with 20 mL of 0.25% Sensorcaine with epinephrine. PREOPERATIVE DIAGNOSIS: POSTOPERATIVE DIAGNOSIS: Right breast lesion. OPERATION PERFORMED: Wire localization and biopsy of right breast lesion. COMPLICATIONS: ESTIMATED BLOOD LOSS: 10 mL. FLUIDS GIVEN: 1100 mL of crystalloid. SPECIMEN: Right breast tissue sent to Radiology. Dr. Snyder confirmed presence of the suspicious area within the specimen, and the entire specimen was sent to Pathology. DISPOSITION: Stable, to recovery. INDICATIONS: Cynthia Melendez is a 72-year-old lady with a lesion in the right breast which was questionable. DESCRIPTION OF OPERATION: After informed consent and wire localization, she was brought to the operating room and placed on the table in the supine position with adequate padding of pressure points. She was given anesthesia and prepped and draped in the usual sterile fashion. Time-out verification was done. The right breast area was carefully palpated and demarcated. Then, a curvilinear incision was made at the areolar rim, deepened to the underlying tissue, and the wound edges gently retracted. Page 1 of 2 CYNTHIA MELENDEZ Operative Report The oozing points were cauterized as needed. The wire was grasped with Allis clamps and carefully held in position and then dissection carried down with the curved Metzenbaums to go completely around the previously-viewed lesion on the mammographic sheets. The specimen was sent to Radiology, and telephone report from Dr. Snyder confirmed presence of the suspicious area within the removed specimen. The wound was copiously irrigated, oozing points cauterized, and then the deeper layers approximated with inverted interrupted 3-0 Vicryl. Skin edges were brought into closer approximation with inverted interrupted 3-0 Vicryl and inverted interrupted undyed 4-0 Vicryl through the subcutaneous and subcuticular layers. Benzoin, Steri-Strips, and sterile dressings were placed. The patient tolerated the procedure well. The case will be discussed with the patient when she is more awake. It should be noted that prior to the first incision the area had been locally anesthetized with approximately 20 mL of 0.25% Sensorcaine with epinephrine. The patient was sent to recovery in stable condition. Dictated By: Cinthya Velarde MD 11/18/17 13:10 JOB #: [id number] Transcribed By: rachana 11/18/17 16:39 Electronically signed by: E-Sign Dr. Cinthya Velarde MD 11/20/17 03:02 Page 2 of 2 CYNTHIA MELENDEZ Operative Report MAMM GUIDE NEEDLE Observed: 11/18/2017 Status: F Source: [facility] 1ST LESION BRST RT 11:22 AM [place] [address] Patient: CYNTHIA MELENDEZ. Phone#: : 1945 Age: 72 Gender: F Pt. Type: Out Account: [id number] Location: 062 Ordering: CINTHYA VELARDE Exam Date: 11/18/2017/9:33 Family Phys: SUKI TOM Charge Code: [id number] Physician: Bulloch Order #: [id number] DLP Dose#: PROCEDURE: BIOPSY RT BREAST COMPARISON: [facility], LT SPOT/MAG DIGITAL, 04/20/2017, 9:08. [facility], RT UNILAT DIAGNOSTIC, 08/17/2017, 14:42. INDICATIONS: Right breast needle localization DESCRIPTION: After obtaining informed consent, a hookwire was placed in the usual sterile manner using ultrasound guidance. The wire was secured to the skin and a sterile dressing applied. FINDINGS: LESION #, LOCATION: A centimeters deep to the nipple, medial to midline. MEDICATION: Topical Gebauer's ethylchloride COMPLICATIONS: None. CONCLUSION: Successful hookwire localization. Localizing wire is adjacent to the superior medial margin of the feet targeted lesion. Dictated by: Magaly Snyder MD on 11/18/2017 at 15:28 Approved by: Magaly Snyder MD on 11/18/2017 at 15:28 SURGICAL SPECIMEN, Observed: 11/18/2017 Status: F Source: [facility] RADIOLOGICAL EXAM 8:50 AM [place] [address] Patient: CYNTHIA MELENDEZ Phone#: : 1945 Age: 72 Gender: F Pt. Type: Out Account: [id number] Location: 2 Ordering: [facility] Exam Date: 11/18/2017/12:34 Family Phys: SUKI TOM Charge Code: [id number] Physician: Bulloch Order #: [id number] DLP Dose#: PROCEDURE: SURGICAL SPECIMEN, RADIOLOGICAL EXAM COMPARISON: [facility], , BIOPSY RT BREAST NEEDLE LOC, 11/18/2017, 9:33. INDICATIONS: Right breast specimen FINDINGS: A 4 x 6 x 5 mm focal density is present adjacent to the localizing wire corresponding to the in vitro mass. CONCLUSION: 1. Targeted lesions is present in the biopsy specimen. Dictated by: Magaly Snyder MD on 11/18/2017 at 15:31 Approved by: Magaly Snyder MD on 11/18/2017 at 15:31 FINAL SURGICAL Observed: 11/18/2017 Status: F Source: [facility] PATHOLOGY REPORT 8:33 AM [facility] REPOSITORY . Pathology Reports Accession: Collected Date/Time: Received Date/Time: Pathologist: [id number] 11/18/2017 08:33 EDT 11/21/2017 08:33 EDT MD XIOMY WATKINS Final Surgical Pathology Report DIAGNOSIS: RIGHT BREAST LUMP (UPPER INNER QUADRANT), EXCISIONAL BIOPSY -- NO EVIDENCE OF ATYPICAL HYPERPLASIA OR MALIGNANCY (SEE COMMENT). Comment: Multiple histologic sections were examined. The histologic examination shows benign breast tissue consisting of glandular elements and fibrous tissue admixed with fibroadipose tissue. If a clinically distinct mass was present, these findings are most consistent with a benign breast hamartoma. COMMENT: [facility]# [id number] CLINICAL INFORMATION: BREAST - UNCERTAIN NEOPLASM SPECIMEN: A BRST, LUMP - RIGHT - UPPER INNER QUADRANT GROSS DESCRIPTION: Received in formalin is an excisional breast biopsy specimen with a needle localization wire. The specimen is unoriented. There are no needle localization coordinates provided. The specimen measures 6.0 x 3.5 x 2.9 cm. The specimen is inked with black ink, the needle localization wire is removed. The specimen is then sectioned. The specimen is serially sectioned. A discreet mass is not present, however increased areas of distinct fibrous tissue are present through the majority of the specimen. Information Systems Security Officer sections of the specimen are submitted in 12 cassettes. dictated by River Watkins M.D. Time removed from patient: [address] in formalin: 1239 Cold ischemic time: _ is within/outside the parameters of ASCO/CAP guidelines Total fixation time: _ is within/outside the parameters of ASCO/CAP guidelines (less than 6 hours or greaters than 72 hours) Fixative: _ 10% neutral buffered formalin Dictated by XIOMY WATKINS MD MICROSCOPIC DESCRIPTION: Slides reviewed. Electronically Signed by Pathology Report verified by [facility] Electronically signed by XIOMY WATKINS MD Sign out Date: 11/23/2017 16:00 Performing Lab: [facility], [address] [place] [address] [facility] Performed By: #### SPFR #### [place] [address] MR BREAST BILATERAL Observed: 11/01/2017 Status: F Source: [facility] W/WO CONTRAST 7:49 PM [place] [address] Patient: CYNTHIA MELENDEZ Phone#: : 1945 Age: 72 Gender: F Pt. Type: Out Account: [id number] Location: 010 Ordering: [facility] Date: 11/01/2017/18:18 Family Phys: JOEDAQUAN TOM Charge Code: [id number] Physician: PAUL BURR Bulloch Order #: [id number] DLP Dose#: CORRECTION 'left' corrected to 'right' in the addendum Corrected on: 11/08/2017; Dictated by: Magaly Synder MD on 11/08/2017 at 14:31 Approved by: Magaly Snyder MD on 11/08/2017 at 14:31 This report includes an Addendum and supersedes previous reports for this exam. PROCEDURE: MRI BREAST BILAT WITH AND WITHOUT CONTRAST COMPARISON: None. INDICATIONS: Breast uncertain neoplasm TECHNIQUE: Breast MRI was performed before and after using dynamic intravenous gadolinium infusion, thin sections, and a dedicated breast coil. ENHANCEMENT PATTERN: Type III enhancement pattern. FINDINGS: DIAGNOSTIC CATEGORY 4--SUSPICIOUS FINDINc-MODERATELY SUSPICIOUS, BUT NOT CLASSIC FOR MALIGNANCY Deep in the inferior medial right breast is an irregularly shaped, 9 x 9 x 8mm and irregularly marginated mass corresponding to the mammographic finding. Mild spiculation is demonstrated. Internal enhancement is heterogeneous. Findings are suspicious for neoplastic process. Surgical biopsy is with mammographic guided wire localization is recommended. In the mid breast, upper outer quadrant is a 5 mm mildly lobulated, smoothly marginated, homogeneously enhancing nodule. Continued Report - Page 2 of 2 Patient: CYNTHIA MELENDEZ Phone#: : 1945 Age: 72 Gender: F Pt. Type: Out Account: [id number] Location: 010 Ordering: CINTHYA VELARDE Exam Date: 11/01/2017/18:18 Family Phys: SUKI SANTOS Charge Code: [id number] Physician: PAUL BURR Bulloch Order #: [id number] DLP Dose#: Enhancement patterns should be considered suspicious. However lesion characteristics are more suggestive of benign lesion including intramammary lymph node, adenosis or papilloma. PLEASE NOTE: A NORMAL MRI DOES NOT EXCLUDE THE POSSIBILITY OF BREAST CANCER. A CLINICALLY SUSPICIOUS PALPABLE LUMP SHOULD BE BIOPSIED. Dictated by: Magaly Snyder MD on 11/02/2017 at 9:46 Approved by: Magaly Snyder MD on 11/02/2017 at 9:46 ADDENDUM: FINDINGS: DIAGNOSTIC CATEGORY 4--SUSPICIOUS FINDINc-MODERATELY SUSPICIOUS, BUT NOT CLASSIC FOR MALIGNANCY RECOMMENDATIONS: SURGICAL BIOPSY COORDINATED WITH MAMMOGRAM HOOKWIRE LOCALIZATION: RIGHT BREAST. Dictated by: Magaly Snyder MD on 11/02/2017 at 10:48 Approved by: Allie Valdez CBC Collected: 10/31/2017 Status: F Source: [facility] 8:50 AM [facility] REPOSITORY TYPE CODE TESTS RESULT OUT OF RANGE REFERENCE UNITS LAB CBC(LOINC) CBC Result Comment: CBC-COMPLETE BLOOD COUNT LAB WBC(LOINC) 4.5 - 10.8 x 10EE3/UL WBC 5.2 LAB RBC(LOINC) 4.10 - x 10EE6/UL 5.30 RBC 4.41 LAB HEMOGLOBIN(LOINC) 12.0 - g/dl 16.0 HEMOGLOBIN 14.2 LAB HEMATOCRIT(LOINC) 34.0 - % 46.0 HEMATOCRIT 41.0 LAB MCV(LOINC) 80 - 99 fl MCV 93 LAB MCH(LOINC) 27 - 33 pg MCH 32 LAB MCHC(LOINC) 32 - 36 X10 3 MCHC 35 LAB RDW/CV(LOINC) 12.0 - % 15.6 RDW/CV 13.1 LAB PLATELET(LOINC) 150 - 450 x10EE3/UL PLATELET 238 LAB MPV(LOINC) 6.6 - 10.5 fl MPV 8.9 Result Comment: AUTOMATED DIFFERENTIAL LAB NEUT %(LOINC) 46.0 - 76.0 % NEUT % 54.1 LAB LYMPH %(LOINC) 20.0 - 45.0 % LYMPH % 30.2 LAB MONOS %(LOINC) 0.0 - 10.0 % MONOS % 7.7 LAB EO %(LOINC) 0.0 - 7.0 % EO % High 7.2 LAB BASO %(LOINC) 0.0 - 2.0 % BASO % 0.8 LAB Lymph #(LOINC) 0.80 - 2.80 x10EE3/U L Lymph # 1.60 LAB Neut #(LOINC) 1.50 - 7.10 x10EE3/U L Neut # 2.80 LAB [place] #(LOINC) 0.20 - 1.00 x10EE3/U L [place] # 0.40 LAB EO #(LOINC) 0.00 - 0.50 x10EE3/U L EO # 0.40 LAB Baso #(LOINC) 0.00 - 0.10 x10EE3/U L Baso # 0.00 LAB MANUAL DIFF(LOINC) MANUAL DIFF N/A LAB MORPHOLOGY(LOINC ) MORPHOLOGY N/A Result Comment: {CD] Performed By: #### [id number] #### [facility],[address] [place] [address] CMP WITH EGFR Collected: 10/31/2017 Status: F Source: [facility] 8:50 AM [facility] REPOSITORY TYPE CODE TESTS RESULT OUT OF RANGE REFERENCE UNITS LAB CMP with eGFR(LOINC) CMP with eGFR Result Comment: COMPREHENSIVE METABOLIC PANEL LAB SODIUM(LOINC) 136 - 145 mmol/l SODIUM 138 LAB POTASSIUM(LOINC) 3.5 - 5.1 mmol/L POTASSIUM 4.1 LAB CHLORIDE(LOINC) 98 - 107 mmol/L CHLORIDE 104 LAB CO2(LOINC) 21.0 - mmol/L 31.0 CO2 26.8 LAB GLUCOSE(LOINC) 74 - 106 mg/dl GLUCOSE 104 LAB BUN(LOINC) 6 - 20 mg/dl BUN High 25 LAB CREATININE(LOINC) 0.6 - 1.2 mg/dl CREATININE 1.0 LAB AST/SGOT(LOINC) 13 - 39 U/L AST/SGOT 21 LAB ALK PHOS(LOINC) 38 - 126 U/L ALK PHOS 43 LAB CALCIUM(LOINC) 8.6 - mg/dl 10.2 CALCIUM 10.0 LAB TOTAL 6.4 - 8.3 g/dl PROTEIN(LOINC) TOTAL PROTEIN 7.4 LAB ALBUMIN(LOINC) 3.4 - 4.8 g/dL ALBUMIN 4.3 LAB GLOBULIN(LOINC) 1.5 - 3.8 G/DL GLOBULIN 3.1 LAB A/G RATIO(LOINC) 0.9 - 1.6 A/G RATIO 1.4 LAB TOTAL BILI(LOINC) 0.0 - 1.5 mg/dl TOTAL BILI 0.6 LAB B/C RATIO(LOINC) 0 - 30 ratio B/C RATIO 25 LAB ALT/SGPT(LOINC) 8 - 35 U/L ALT/SGPT 21 LAB ANION GAP(LOINC) 10 - 20 mmol/L ANION GAP 11 LAB AGE(LOINC) years AGE 72 LAB eGFR(LOINC) 60 - 999 ML/MINUTE eGFR Low 54 LAB eGFR(AA)(LOINC) 60 - 999 ML/MINUTE eGFR(AA) >60 Result Comment: ACCORDING TO THE NATIONAL KIDNEY DISEASE EDUCATION PROGRAM(NKDE), A NORMAL eGFR IS A VALUE GREATER THAN OR EQUAL TO 60 ML/MIN/1.73 SQ METERS. CHRONIC KIDNEY DISEASE: <60mL/MIN/1.73 SQ METERS KIDNEY FAILURE: <15mL/MIN/1.73 SQ METERS THIS TEST SHOULD ONLY BE USED FOR PATIENTS 18 YEARS OF AGE AND OLDER. Performed By: #### [id number] #### [place] [address] LIPID PROFILE Collected: 10/31/2017 Status: F Source: [facility] 8:50 AM [facility] REPOSITORY TYPE CODE TESTS RESULT OUT OF REFERENCE UNITS RANGE LAB LIPID PROFILE(LOIN C) LIPID PROFILE Result Comment: LIPID PROFILE LAB TRIGLYCERIDE(LOINC) 0 - 150 mg/dl TRIGLYCERIDE 72 LAB CHOLESTEROL(LOINC) 0 - 200 mg/dl CHOLESTEROL 181 LAB HDL(LOINC) 40 - 60 mg/dl HDL High 73 LAB CHOL/HDL(LOINC) 0.0 - 5.0 CHOL/HDL 2.5 LAB LDL(LOINC) 0 - 129 mg/dl LDL 94 Performed By: #### [id number] #### [place] [address] TSH Collected: 10/31/2017 Status: F Source: [facility] 8:50 AM [facility] REPOSITORY TYPE CODE TESTS RESULT OUT OF RANGE REFERENCE UNITS LAB TSH(LOINC) 0.34 - 5.60 uIU/ml TSH 3.23 Performed By: #### [id number] #### [place] [address] C-REACTIVE PROTEIN Collected: 10/18/2017 Status: F [facility] REPOSITORY TYPE CODE TESTS RESULT OUT OF RANGE REFERENCE UNITS LAB CRP(LOINC) 0.00 - 1.00 mg/dl CRP 0.30 Performed By: #### [id number] #### [place] [address] SEDRATE Collected: 10/18/2017 Status: F Source: [facility] 3:30 PM [facility] REPOSITORY TYPE CODE TESTS RESULT OUT OF REFERENCE UNITS RANGE LAB SEDRATE(KAYY 0 - 30 mm/hr NC) SEDRATE 14 Performed By: #### [id number] #### [facility],[address] [place] [address] CYCLIC CITRULLINE PEP Collected: 10/18/2017 Status: F Source: [facility] IGG [QUEST] 3:30 PM [facility] REPOSITORY TYPE CODE TESTS RESULT OUT OF REFERENCE UNITS RANGE LAB CYCLIC CITRULLINE PEP IGG [QUEST](LOINC) CYCLIC CITRULLINE PEP IGG [QUEST] Result Comment: _CYCLIC CITRULLINE PEP IGG_ CYCLIC CITRULLINATED PEPTIDE (CCP) ANTIBODY IGG Reported: 10/21/2017 12:47 Status=F TEST RESULT FLAG RANGE UNITS CCP, ANTIBODY (IGG) <16 <20 Units 10/21/17.1259.rfl.COMPLETE.AMRR Negative: <20 Weak Positive: 20 - 39 Moderate Positive: 40 - 59 Strong Positive: >59 Test Performed by [facility], [facility] [place], [address] [place] [id number] Juan Garvin M.D., Ph.D., Director of Laboratories , CLIA [id number] Performed By: #### [id number] #### [facility],[address] [place], [place] [address] ANGIOTENSIN CONVERTING Collected: 10/18/2017 Status: F Source: [facility] ENZYME,SERUM [QU] 3:30 PM [facility] REPOSITORY TYPE CODE TESTS RESULT OUT OF REFERENCE UNITS RANGE LAB ANGIOTENSIN CONVERTING ENZYME,SERUM [QU](LOINC) ANGIOTENSIN CONVERTING ENZYME,SERUM [QU] Result Comment: _ANGIOTENSIN CONVERTING ENZYME_ ANGIOTENSIN CONVERTING ENZYME Reported: 10/22/2017 02:25 Status=F TEST RESULT FLAG RANGE UNITS ANGIOTENSIN CONV ENZYME 30 9-67 U/L 10/22/17.0237.rfl.COMPLETE.AMRR .2742-5 Test Performed by [facility], [facility], [address] [place] [address] Juan Garvin M.D., Ph.D., Director of Laboratories , [facility] [id number] Performed By: #### [id number] #### [facility],[address] [place] [id number] ANTI NUCLEAR AB YAMILE Collected: 10/18/2017 Status: F Source: [facility] W/ REFLEX TITER [QU] 3:30 PM [facility] REPOSITORY TYPE CODE TESTS RESULT OUT OF REFERENCE UNITS RANGE LAB ANTI NUCLEAR AB YAMILE W/ REFLEX TITER [QU](LOINC) ANTI NUCLEAR AB YAMILE W/ REFLEX TITER [QU] Result Comment: _ANTI NUCLEAR AB YAMILE W/ REFLEX TITER_ YAMILE IFA SCREEN W/REFLEX TO TITER AND PATTERN, IFA Reported: 10/22/2017 21:33 Status=F TEST RESULT FLAG RANGE UNITS YAMILE SCREEN, IFA Negative Negative 10/22/17.rfl.COMPLETE.AMRR .74935-8 YAMILE IFA is a first line screen for detecting the presence of up to approximately 150 autoantibodies in various autoimmune diseases. A negative YAMILE IFA result suggests YAMILE-associated autoimmune diseases are not present at this time. Visit Physician FAQs for interpretation of all antibodies in the [place], prevalence, and association with diseases at: http://education.Factabase/faq/NPV121 ADDITIONAL TESTING Not indicated 10/22/17.rfl.COMPLETE.AMRR Test Performed by [facility], [facility] [place], [address] [place] [address] Juan Garvin M.D., Ph.D., Director of Laboratories , [facility] [id number] Performed By: #### [id number] #### [facility],[address] [place], [place] [address] ANCA SCREEN W/REFLEX Collected: 10/18/2017 Status: F Source: [facility] TO ANCA TITER [QU] 3:30 PM [facility] REPOSITORY TYPE CODE TESTS RESULT OUT OF REFERENCE UNITS RANGE LAB ANCA SCREEN W/REFLEX TO ANCA TITER [QU](LOINC) ANCA SCREEN W/REFLEX TO ANCA TITER [QU] Result Comment: _ANCA SCREEN WITH REFLEX TITER_ ANCA SCREEN W/REFLEX TO TITER Reported: 10/23/2017 14:01 Status=F TEST RESULT FLAG RANGE UNITS ANCA SCREEN Negative Negative 10/23/17.1414.rfl.COMPLETE.AMRR .98015-9 ANCA Screen includes evaluation for p-ANCA, c-ANCA and atypical p-ANCA. A positive ANCA screen reflexes to titer and pattern(s), e.g., cytoplasmic pattern (c-ANCA), perinuclear pattern (p-ANCA), or atypical p-ANCA pattern. c-ANCA and p-ANCA are observed in vasculitis, whereas atypical p-ANCA is observed in IBD (Inflammatory Bowel Disease). Atypical p-ANCA is detected in about 55% to 80% of patients with ulcerative colitis but only 5% to 25% of patients with Crohn's disease. YAMILE COMMENT DNR 10/23/17.1414.rfl.COMPLETE.AMRR .8251-1 Test Performed by [facility], [facility] [place], [address] [place] [id number] Juan Garvin M.D., Ph.D., Director of [employer] , [facility] [id number] Performed By: #### [id number] #### [facility],[address] [place], [place] [id number] RHEUMATOID FACTOR Collected: 10/18/2017 Status: F Source: [facility] [QUEST] 3:30 PM [facility] REPOSITORY TYPE CODE TESTS RESULT OUT OF REFERENCE UNITS RANGE LAB RHEUMATOID FACTOR [QUEST](LOINC) RHEUMATOID FACTOR [QUEST] Result Comment: _RHEUMATOID FACTOR_ RHEUMATOID FACTOR Reported: 10/23/2017 22:08 Status=F TEST RESULT FLAG RANGE UNITS RHEUMATOID FACTOR <14 <14 IU/mL 10/23/17.2221.rfl.COMPLETE.AMRR .18883-0 Test Performed by [facility], [facility] [place], [address] [place] [address] Jaun Garvin M.D., Ph.D., Director of Laboratories , [facility] [id number] Performed By: #### [id number] #### [place] [address] CHEST 2 VIEWS Observed: 10/18/2017 Status: F Source: [facility] 3:12 PM [place] [address] Patient: CYNTHIA MELENDEZ Stephanie Phone#: : 1945 Age: 72 Gender: F Pt. Type: Out Account: [id number] Location: 010 Ordering: KORINA SOLORIO Exam Date: 10/18/2017/14:59 Family Phys: SUKI SANTOS Charge Code: [id number] Physician: Bulloch Order #: [id number] DLP Dose#: PROCEDURE: X-RAY CHEST 2 VIEWS COMPARISON: [facility], XR, CHEST AP, 10/31/2014, 17:27. INDICATIONS: Posterior Scleritis FINDINGS: LUNGS: Normal. No significant pulmonary parenchymal abnormalities. Calcified granuloma in the left upper lobe. VASCULATURE: Normal. Unremarkable pulmonary vasculature. CARDIAC: Normal. No cardiac silhouette abnormality or cardiomegaly. MEDIASTINUM: Aortic arch calcifications. PLEURA: Normal. No effusion or pleural thickening. BONES: There are degenerative changes of the spine. OTHER: Negative. CONCLUSION: No acute disease. No significant change has occurred. Dictated by: Karly Banks MD on 10/18/2017 at 15:19 Approved by: Karly Banks MD on 10/18/2017 at 15:19 CNPN Observed: 10/03/2017 Status: COMPLETED Source: [place] 12:[address] [facility] REPOSITORY Telephone (OPHTSK) CYNTHIA MELENDEZ ([id number]) 1945 F Date Time Provider Department 10/03/17 NATHAN NG JRTSK During your visit today, we recorded the following information about you: Rosio Galarza Him Op Asst 10/03/2017 11:46 AM Signed Tia @ Dr. Vidales office called. She states that patient was referred to Dr. Vidales. Patient stated that she brought in disk with MRI of the brain to her last appointment here. Dr. Vidales is requesting disk. Please advise Tia @ Dr. Vidales office. Marisol Landa LPN,JUSTO, Tech 10/03/2017 3:37 PM Addendum Spoke to patient notified her we do not have the MRI disc. She was upset but after reviewing her appoinments in Epic close to the date she saw Dr. Nathan Ng patient realizes she may have given it to Dr. Chávez her neurologist, she saw him 3 days prior. She will call their office to see if they have the disc. Marisol Landa LPN, COA, Tech 10/04/2017 9:43 AM Signed Spoke to Tia and notified patient to retrieve disc from neurologist office. Marisol Landa LPN, COA, October 04, 2017, 9:43 AM Allergies As of Date: 10/03/2017 Noted Allergy Reaction ASPIRIN 01/14/2011 12 - Shortness of Breath DEMEROL (MEPERIDINE (PF)) 01/14/2011 11 - Vomiting MORPHINE 01/14/2011 11 - Vomiting Date Reviewed: 08/26/2017 Reviewed by: Nathan Ng Jr. - Fully Assessed Reason for Visit: Release Of Medical Records [2017] Prescriptions as of 10/03/2017 Sig: PANTOPRAZOLE ORAL Take by mouth once daily. * LEVOTHYROXINE 50 MCG CAPSULE Take by mouth. * METOPROLOL SUCCINATE ER 25 MG* Take 25 mg by mouth once marie* * DYVHFYZROFS-AITXEWLKCRP-UG-SC* Take by mouth twice daily. * RED YEAST RICE EXTRACT ORAL Take by mouth twice daily. * VITAMIN E 400 UNIT TABLET Take by mouth once daily. * VITAMIN A PALMITATE 5,000 UNI* Take by mouth. 8,000 units d* * VITAMIN B COMPLEX NO.12-NIACI* Take by mouth. 250mg daily * CALCIUM + D ORAL Take by mouth twice daily. * OMEGA 3 FISH OIL ORAL Take by mouth twice daily. 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 REPOSITORY Telephone (OPHTSK) CYNTHIA MELENDEZ ([id number]) 1945 F Date Time Provider Department 08/29/17 BERENICE HERBERT, NATHAN STERLING During your visit today, we recorded the following information about you: Eda Balbuena Workleader 08/29/2017 10:33 AM Signed Patient was seen last week on Tuesday. She had one concern that was not addressed. Patient has been experiencing a pulsating in her left eye for about 6-7 weeks. Patient sees it when she closes her right eye. ANDquot;Bright and dim, bright and dim, bright and dimANDquot; pulsating. Patient advises it matches her heart rate. Patient would like to know why this is happening, what it is, and what to do about it. Patient also mentioned that her eye is swollen and red and is supposed to have a prescription cream called in to her pharmacy as well, but it wasn't there Tuesday when she went to pick it up. Patient now wants the prescription sent to the [facility] pharmacy instead.[phone]. Patient would like a call back today to address her concerns. Nathan Ng MD 08/29/2017 11:20 AM Signed I re-sent the Tobradex parviz Rx to her new pharmacy electronically, so no need to call. I really don't have a good explanation for the ANDquot;pulsing vision.ANDquot; Given this is concerning her, I would suggest a referral to a neuro-development planner (either [facility] or Dr. Vidales at [facility] - patient's choice). This should be done BEFORE her cataract surgery. Thanks, CJ Sharma [employer] 08/29/2017 11:37 AM Signed I spoke with patient and informed her prescription has been resent to [facility] in [facility]. ALso discussed Dr. Nathan Ng response regarding her pulsing issue. Patient wishes us to set up an appointment with Dr Vidales - prefers morning but requests appointment as soon as possible. I informed patient we will contact his office and try to set up appointment for her and let her know results (will call patient today). CJ Akers [employer] 08/29/2017 11:52 AM Signed Spoke with Dr Davis's Office and he is booked through end of November but was able to get patient in on a [facility] day when Dr Vidales is there and holding a neuro-ophth clinic. Appointment is Sep @ 1:[address] Vidales office requests we faxe over copies of exam and patient also wishes copies of OCT done previous at other facility be faxed as well FAX [phone] CJ Soto, Tech 08/29/2017 3:32 PM Signed Azul from [facility] pharmacy in [place]. The Tobradex ointment that Dr. Ng prescribed is not covered by insurance and would cost the patient $250. If the doctor could find something the patient could afford. Their insurance will cover the Jg/Poly/Dex ointment. Message to BRENDA. Nathan Ng MD 08/29/2017 4:27 PM Signed OK to trial the suggested alternative with the same instructions. CJ Stevens, Tech 08/29/2017 4:41 PM Signed Called [facility] and spoke to pharmacist to let them know that the doctor had approved a trial of jg/poly/dex ointment with same instructions. Hilaria Harmon Psr 08/30/2017 12:57 PM Signed Last eye exam faxed to Dr. Vidales @ [phone] with a received confirmation. Allergies As of Date: 08/29/2017 Noted Allergy Reaction ASPIRIN 01/14/2011 12 - Shortness of Breath DEMEROL (MEPERIDINE (PF)) 01/14/2011 11 - Vomiting MORPHINE 01/14/2011 11 - Vomiting Date Reviewed: 08/26/2017 Reviewed by: Nathan Ng Jr. - Fully Assessed Reason for Visit: Medication Problem [65] Reason For Visit History Recorded Prescriptions as of 08/29/2017 Sig: TOBRAMYCIN-DEXAMETHASONE 0.3 * Use 1 application in the left* TOBRAMYCIN-DEXAMETHASONE 0.3 * Use 1 application in the left* PANTOPRAZOLE ORAL Take by mouth once daily. * LEVOTHYROXINE 50 MCG CAPSULE Take by mouth. * METOPROLOL SUCCINATE ER 25 MG* Take 25 mg by mouth once marie* * EYEHFMMFOLJ-SQMIRATYHQB-HW-SC* Take by mouth twice daily. * RED YEAST RICE EXTRACT ORAL Take by mouth twice daily. * VITAMIN E 400 UNIT TABLET Take by mouth once daily. * VITAMIN A PALMITATE 5,000 UNI* Take by mouth. 8,000 units d* * VITAMIN B COMPLEX NO.12-NIACI* Take by mouth. 250mg daily * CALCIUM + D ORAL Take by mouth twice daily. * OMEGA 3 FISH OIL ORAL Take by mouth twice daily. 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 REPOSITORY HNO ID: [id number] Author: Nathan Ng Jr. Service: (none) Author Type: Physician Type: Progress Notes Filed: 08/26/2017 11:57 AM Note Text: H25.13 Nuclear sclerosis of both eyes (primary encounter diagnosis) Comment: Cataracts worsening. Discussed effects on vision with patient and risks, benefits and alternatives. Visually significant at this time but will wait to proceed with surgery as patient thinks it over. Patient to monitor vision and call for any increase in glare or decrease in detail. OK to schedule left eye phacoemulsification w intraocular lens then right eye. Otherwise, will monitor. H25.013 Cortical senile cataract, bilateral Comment: see nuclear sclerosis above H35.343 Lamellar macular hole of both eyes Comment: Stable. Discussed with patient. Will continue to monitor H01.021, H01.022, H01.024, H01.025 Squamous blepharitis of upper and lower eyelids of both eyes. Also, has herniated adipose pads all 4 lids, but worse left eye. Discussed with patient. Will monitor Comment: Continue using all medications as follows: Current Ophthalmic Meds tobramycin-dexamethasone (TOBRADEX) ophthalmic ointment Use 1 application in the left eye three times daily for 21 days. L90.8 Ptosis due to aging Comment: Discussed with patient. Will monitor H52.7 Refractive error Comment: No manifest refraction given today The documentation recorded by the scribe accurately reflects the service I personally performed and the decisions made by me. I have confirmed and edited as necessary the relevant ophthalmic history, ROS, and the neuro exam findings as obtained by others. I have seen and examined Cynthia Melendez I have discussed the case and the management of this patient's care with the Resident/Fellow, if applicable. I also have reviewed and agree with the assessment and plan as stated above and agree with all of its relevant components. Nathan Ng MD Return in about 1 year (around 08/26/2018), or if symptoms worsen or fail to improve, for Complete. PROGRESS Observed: 08/26/2017 Status: COMPLETED Source: [place] 11:[address] [facility] REPOSITORY HNO ID: [id number] Author: Netta Kang (Rn) MARK Lucero Service: (none) Author Type: Registered Nurse Type: Progress Notes Filed: 08/26/2017 11:57 AM Note Text: The documentation for the exam note and patient instructions were completed by Netta Lucero RN acting as a scribe for Nathan Ng MD. 08/26/2017 11:40 AM. PROGRESS Observed: 08/23/2017 Status: COMPLETED Source: [place] 12:[address] [facility] REPOSITORY HNO ID: [id number] Author: Georges Chávez Service: (none) Author Type: Physician Type: Progress Notes Filed: 08/24/2017 1:14 PM Note Text: FOLLOW-UP PROGRESS NOTE Purpose of Visit: Ongoing patient management. 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 Disp: Rfl: Levothyroxine 50 mcg ORAL Cap Take by mouth. Disp: Rfl: metoprolol succinate XL (TOPROL XL) 25 mg ORAL 24 hr tablet Take 25 mg by mouth once daily. 1/2 tab daily Disp: Rfl: Glucosamine and Smrvdtbsk-LY-Lbf7 071-104-08-0.5 mg ORAL Tab Take by mouth twice daily. Disp: Rfl: RED YEAST RICE EXTRACT ORAL Take by mouth twice daily. Disp: Rfl: Vitamin E 400 unit ORAL Tab Take by mouth once daily. Disp: Rfl: Vitamin A Palmitate 5,000 unit ORAL Tab Take by mouth. 8,000 units daily Disp: Rfl: VITAMIN B COMPLEX NO.12-NIACIN ORAL Take by mouth. 250mg daily Disp: Rfl: CALCIUM CARBONATE/VITAMIN D3 (CALCIUM + D ORAL) Take by mouth twice daily. Disp: Rfl: OMEGA-3 FATTY ACIDS/FISH OIL (OMEGA 3 FISH OIL ORAL) Take by mouth twice daily. Disp: Rfl: No current facility-administered medications for this visit. Subjective: Since last visit she has had no new complaints. Neurological Exam: No new findings Awake, Alert Ox3 Speech clear and fluent VFFTC, PEERL, EOMI, Face symmetric, TML Motor 5/5 throughout Sensation intact to LT Gait stable Other Physical Findings: No interval change New Imaging Studies: Stable CP angle meningioma compared to 2016 Assessment: Stable Plan: Follow up with a new brain MRI in 2 years MD Georges Marion MD PhD CNOV Observed: 08/23/2017 Status: COMPLETED Source: [place] 11:[address] [facility] REPOSITORY Office Visit (NSCAMN) CYNTHIA MELENDEZ ([id number]) 1945 F Date Time Provider Department 08/23/17 11:10 AM GEORGES CHÁVEZ NSCAMN During your visit today, we recorded the following information about you: Temperature Pulse Respiration Blood pressure 98.5 degrees 81/minute 16/minute 147/59 Weight 66.7 kg Adama Tony LPN, LPN 08/23/2017 12:02 PM Signed Additional intake questions: Has the patient had nausea, vomiting, diarrhea, constipation, fatigue for ANDgt; 1 week? None of the above Does the patient have a decreased appetite? No Does patient want to see a Net Fisher? No (yes to any of above refer patient to schedulers for dietitian appointment) ) Does patient have any new or increased numbness or tingling of extremities? No Is patient interested in fertility information? No Does patient need any prescription refills? No Electronically Signed By: RACHELLE Ramachandran MD PhD 08/24/2017 1:14 PM Signed FOLLOW-UP PROGRESS NOTE Purpose of Visit: Ongoing patient management. 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 Disp: Rfl: Levothyroxine 50 mcg ORAL Cap Take by mouth. Disp: Rfl: metoprolol succinate XL (TOPROL XL) 25 mg ORAL 24 hr tablet Take 25 mg by mouth once daily. 1/2 tab daily Disp: Rfl: Glucosamine and Rjixnyhfr-BU-Sck4 290-975-39-0.5 mg ORAL Tab Take by mouth twice daily. Disp: Rfl: RED YEAST RICE EXTRACT ORAL Take by mouth twice daily. Disp: Rfl: Vitamin E 400 unit ORAL Tab Take by mouth once daily. Disp: Rfl: Vitamin A Palmitate 5,000 unit ORAL Tab Take by mouth. 8,000 units daily Disp: Rfl: VITAMIN B COMPLEX NO.12-NIACIN ORAL Take by mouth. 250mg daily Disp: Rfl: CALCIUM CARBONATE/VITAMIN D3 (CALCIUM + D ORAL) Take by mouth twice daily. Disp: Rfl: OMEGA-3 FATTY ACIDS/FISH OIL (OMEGA 3 FISH OIL ORAL) Take by mouth twice daily. Disp: Rfl: No current facility-administered medications for this visit. Subjective: Since last visit she has had no new complaints. Neurological Exam: No new findings Awake, Alert Ox3 Speech clear and fluent VFFTC, PEERL, EOMI, Face symmetric, TML Motor 5/5 throughout Sensation intact to LT Gait stable Other Physical Findings: No interval change New Imaging Studies: Stable CP angle meningioma compared to 2016 Assessment: Stable Plan: Follow up with a new brain MRI in 2 years MD Georges Marion MD PhD Referring Provider: GEORGES CHÁVEZ [[id number]] Allergies As of Date: 08/23/2017 Noted Allergy Reaction ASPIRIN 01/14/2011 12 - Shortness of Breath DEMEROL (MEPERIDINE (PF)) 01/14/2011 11 - Vomiting MORPHINE 01/14/2011 11 - Vomiting Date Reviewed: 08/23/2017 Reviewed by: Adama Lewis) RACHELLE Tony - Fully Assessed Reason for Visit: Established Patient [175] Primary Visit Diagnosis:CPA meningioma (HCC) [D32.0] Prescriptions as of 08/23/2017 Sig: PANTOPRAZOLE ORAL Take by mouth once daily. * LEVOTHYROXINE 50 MCG CAPSULE Take by mouth. * METOPROLOL SUCCINATE ER 25 MG* Take 25 mg by mouth once marie* * HIVWWVRDFEU-ZYVHRBSRMCX-MC-SC* Take by mouth twice daily. * RED YEAST RICE EXTRACT ORAL Take by mouth twice daily. * VITAMIN E 400 UNIT TABLET Take by mouth once daily. * VITAMIN A PALMITATE 5,000 UNI* Take by mouth. 8,000 units d* * VITAMIN B COMPLEX NO.12-NIACI* Take by mouth. 250mg daily * CALCIUM + D ORAL Take by mouth twice daily. * OMEGA 3 FISH OIL ORAL Take by mouth twice daily. 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 None of the above Does the patient have a decreased appetite? No Does patient want to see a Net Fisher? No (yes to any of above refer patient to schedulers for dietitian appointment) ) Does patient have any new or increased numbness or tingling of extremities? No Is patient interested in fertility information? No Does patient need any prescription refills? No Electronically Signed By: Adama Tony LPN Encounter Status:Closed by SAIRA COUCH, GEOR[place] PHD on 08/24/17 MAMM DIGITAL UNILAT Observed: 08/17/2017 Status: F Source: [facility] S[facility]ED[facility] DIAGNOSTIC RT 2:47 PM [place] [id number] Patient: CYNTHIA MELENDEZ. Phone#: : 1945 Age: 72 Gender: F Pt. Type: Out Account: [id number] Location: 010 Ordering: [facility] Exam Date: 08/17/2017/14:42 Family Phys: SUKI SANTOS Charge Code: [id number] Physician: Bulloch Order #: [id number] DLP Dose#: PROCEDURE: MAMM RT UNILAT DIGITAL DIAGNOSITC WITH CAD COMPARISON: [facility], BILAT SCREENING, 04/20/2017, 8:46. [facility], RT SPOT/MAG DIGITAL, 04/20/2017, 9:02. [facility], LT SPOT/MAG DIGITAL, 04/20/2017, 9:08. INDICATIONS: Follow up ultrasound BREAST COMPOSITION: Scattered fibroglandular densities (25-50% glandular). FINDINGS: DIAGNOSTIC CATEGORY 0--INCOMPLETE ASSESSMENT: NEED ADDITIONAL IMAGING EVALUATION. RIGHT BREAST: FOCAL ASYMMETRY (finding without convex borders usually visible on two orthogonal views), characterized by obscured indeterminate morphology, mid-breast depth, 2 o'clock position, and 10 x 8 x 10 mm size. The appearance is similar to previous exam. Further evaluation by ultrasound did not demonstrate a corresponding focus. MRI is recommended for evaluation of correlating lesion. RECOMMENDATIONS: ULTRASOUND: RIGHT BREAST. We will call the patient back for an ultrasound and provide an additional report. PLEASE NOTE: A NORMAL MAMMOGRAM DOES NOT EXCLUDE THE POSSIBILITY OF BREAST CANCER. A CLINICALLY SUSPICIOUS PALPABLE LUMP SHOULD BE BIOPSIED. THIS FACILITY UTILIZES A REMINDER SYSTEM TO ENSURE THAT ALL PATIENTS RECEIVE REMINDER LETTERS FOR APPOINTMENTS. THIS INCLUDES REMINDERS FOR ROUTINE MAMMOGRAMS, DIAGNOSITC MAMMOGRAMS, OR OTHER BREAST IMAGING INTERVENTIONS WHEN APPROPRIATE. THIS PATIENT WILL BE PLACED IN THE APPROPRIATE REMINDER SYSTEM. Dictated by: Magaly Snyder MD on 08/17/2017 at 15:02 Continued Report - Page 2 of 2 Patient: CYNTHIA MELENDEZ. Phone#: : 1945 Age: 72 Gender: F Pt. Type: Out Account: [id number] Location: 010 Ordering: [facility] Exam Date: 08/17/2017/14:42 Family Phys: SUKI SANTOS Charge Code: [id number] Physician: Bulloch Order #: [id number] DLP Dose#: Approved by: Magaly Snyder MD on 08/17/2017 at 15:02 BREAST RT Observed: 08/17/2017 Status: F Source: [facility] UNILATERAL COMPLETE 2:[address] [address] Patient: CYNTHIA MELENDEZ Phone#: : 1945 Age: 72 Gender: F Pt. Type: Out Account: [id number] Location: 010 Ordering: [facility] Exam Date: 08/17/2017/13:52 Family Phys: SUKI YOUNGVirgen Charge Code: [id number] Physician: Bulloch Order #: [id number] DLP Dose#: PROCEDURE: ULTRASOUND BREAST RT COMPARISON: [facility], BREAST RT COMPLETE, 04/20/2017, 10:33. INDICATIONS: Right Breast Lesion TECHNIQUE: Breast ultrasound was performed, with evaluation focusing on all four quadrants. FINDINGS: DIAGNOSTIC CATEGORY 0--INCOMPLETE ASSESSMENT: NEED ADDITIONAL IMAGING EVALUATION. RIGHT BREAST: Solid appearing mass with likely benign morphology, hypoechoic echotexture, mid-breast depth, 10 o'clock position, and 5 x 4 x 7 mm size. RIGHT BREAST: Simple benign-appearing cyst, anechoic echotexture, posterior depth, 3 o'clock position, and 3 x 5 x 2 mm size. The finding does not appear to correlate with a mammogram finding. Further evaluation by MRI is recommended. RECOMMENDATIONS: BREAST MRI: RIGHT BREAST. PLEASE NOTE: A NORMAL MAMMOGRAM DOES NOT EXCLUDE THE POSSIBILITY OF BREAST CANCER. A CLINICALLY SUSPICIOUS PALPABLE LUMP SHOULD BE BIOPSIED. Dictated by: Magaly Snyder MD on 08/17/2017 at 15:06 Approved by: Magaly Snyder MD on 08/17/2017 at 15:06 MR MRI BRAIN W/WO Observed: 08/11/2017 Status: F Source: [facility]SAF S[facility] CONTRAST 5:46 PM [address] [place], [place] [address] Patient: CYNTHIA MELENDEZ Phone#: : 1945 Age: 72 Gender: F Pt. Type: Out Account: [id number] Location: [facility] Ordering: SUKI SANTOS Exam Date: 08/11/2017/16:49 Family Phys: Charge Code: [id number] Physician: Bulloch Order #: [id number] DLP Dose#: PROCEDURE: MRI BRAIN WITH AND WITHOUT CONTRAST COMPARISON: None. INDICATIONS: Headache and blurred vision TECHNIQUE: A variety of imaging planes and parameters were utilized for visualization of suspected pathology. Images were performed without and with gadolinium contrast. FINDINGS: CEREBRUM: There is an enhancing mass at the right cerebellar pontine angle which does not arise from the internal auditory canal. There is a dural tail. The mass measures 1.0 x 1.2 x 1.0 cm. Dilated paravascular space adjacent to the right lateral ventricle. There are dilated perivascular spaces in the body and putamen bilaterally. In the left basal ganglia there is focal T2 and flair signal hyperintensity. There is no corresponding enhancement. There is global atrophy. No hemorrhage or acute infarction. CEREBELLUM: No edema, hemorrhage, mass, or acute infarction. Mild global atrophy. BRAINSTEM: No edema, hemorrhage, mass, acute infarction, or inappropriate atrophy. CSF SPACES: Ventricles, cisterns, and sulci are proportionate to the degree of atrophy and symmetric in size and configuration. No subarachnoid hemorrhage or mass. SKULL: No mass or other significant visible lesion. SINUSES: Limited views demonstrate no significant mucosal thickening or fluid. ORBITS: Limited views are unremarkable. OTHER: No abnormal meningeal or parenchymal enhancement. CONCLUSION: 1. Right cerebellar pontine angle meningioma. Recommend correlation to prior study to evaluate for interval change. If clinically indicated an MRI IAC without with contrast would provide better evaluation of the cranial nerves relative to the meningioma. 2. Left basal ganglia signal abnormality, in a patient this age group this finding is most consistent with chronic small vessel ischemic disease. Continued Report - Page 2 of 2 Patient: CYNTHIA MELENDEZ. Phone#: : 1945 Age: 72 Gender: F Pt. Type: Out Account: [id number] Location: 010 Ordering: [facility] Exam Date: 08/11/2017/16:49 Family Phys: Charge Code: [id number] Physician: Bulloch Order #: [id number] DLP Dose#: Dictated by: Karly Banks MD on 08/12/2017 at 16:04 Approved by: Karly Banks MD on 08/12/2017 at 16:04 MR MRA BRAIN OR NECK Observed: 08/11/2017 Status: F Source: [facility]SAF [facility] WO CONTRAST 5:41 PM [facility] REPOSITORY [place] [address] Patient: CYNTHIA MELENDEZ Phone#: : 1945 Age: 72 Gender: F Pt. Type: Out Account: [id number] Location: 010 Ordering: [facility] Exam Date: 08/11/2017/16:49 Family Phys: Charge Code: [id number] Physician: Bulloch Order #: [id number] DLP Dose#: PROCEDURE: MR ANGIOGRAPHY BRAIN WITHOUT CONTRAST COMPARISON: None. INDICATIONS: Headache and blurred vision TECHNIQUE: MR angiography was performed without intravenous gadolinium contrast material. Multiplanar images of the cerebral arteries were created and interpreted. FINDINGS: INTERNAL CAROTIDS: No visible stenosis or aneurysm. ANTERIOR CEREBRALS: No visible stenosis or aneurysm. The anterior communicating artery not definitively identified. MIDDLE CEREBRALS: No visible stenosis or aneurysm. POSTERIOR CEREBRALS: No visible stenosis or aneurysm. Bilateral posterior communicating arteries are present. BASILAR: No visible stenosis or aneurysm. VERTEBRALS: No visible stenosis or aneurysm. The left vertebral is dominate. OTHER: Negative with no evidence of a vascular malformation. CONCLUSION: 1. Unremarkable MRA brain. Dictated by: Karly Banks MD on 08/12/2017 at 13:13 Approved by: Karly Banks MD on 08/12/2017 at 15:11 BUN Collected: 08/11/2017 Status: F Source: [facility]SAF [facility] 4:25 PM [facility] REPOSITORY TYPE CODE TESTS RESULT OUT OF RANGE REFERENCE UNITS LAB BUN(LOINC) 6 - 20 mg/dl High BUN 25 Performed By: #### [id number] #### [facility],[address] [place] [address] CREATININE Collected: 08/11/2017 Status: F Source: ASAF SAAVEDRA 4:25 PM [facility] REPOSITORY TYPE CODE TESTS RESULT OUT OF REFERENCE UNITS RANGE LAB CREATININE 0.6 - 1.2 mg/dl (LOINC) CREATININE 1.0 Performed By: #### [id number] #### [facility],[address] [place] [address] REPORT OF OPERATION Observed: 07/20/2017 Status: F Source: [facility]F [place] 5:10 PM [facility] REPOSITORY [facility] REPORT OF OPERATION NAME NUMBER SEX AGE ADMIT DISC TYPE MED.RECORD# AMADEO Alvarez [id number] F 72 07/19/17 07/19/17 O/P [id number] ROOM:[facility] DATE OF :1945 PHYSICIAN NO.:[id number] PHYSICIAN NAME:E-Sign Dr. Cinthya Velarde MD PHYSICIAN:E.Sign Dr.Butros Tom iLz DATE OF SURGERY: July 19, 2017 SURGEON: Cinthya Velarde MD METAL CUTTER: ANESTHESIOLOGIST: Sabina Alston CRNA/Loco Clinton MD ANESTHETIC: PREOPERATIVE DIAGNOSIS: POSTOPERATIVE DIAGNOSIS: GERD, hiatal hernia, gastritis, esophagitis, distal gastric polyps. OPERATION PERFORMED: EGD, biopsy, polypectomy. COMPLICATIONS: ESTIMATED BLOOD LOSS: Minimal. SPECIMENS: Biopsy/distal gastric polyp sent to Pathology. DISPOSITION: Stable to recovery. INDICATIONS: Cynthia Melendez is a pleasant 72-year-old lady who has had recurrent symptoms of GE reflux. DESCRIPTION OF OPERATION: After informed consent, she was brought to the Endoscopy Suite and was placed on a padded gurney in the left lateral decubitus position with adequate padding of the pressure points and time-out verification was done. The oropharynx was topically anesthetized with 2% viscous lidocaine. A bite block was placed and the Olympus GIF - HQ 190 flexible endoscope was passed through the bite block and oropharynx. The patient was monitored under sedation by Anesthesia. The scope was advanced into the esophagus which was viewed proximally and care taken to protect to the mucosa. The proximal portion appeared healthy. In the distal esophagus, there is a hiatal hernia and some patchy erythema, but no ulceration. There os no mass effect. The scope was passed down to the GE junction, retroflexed in the fundus and GE junction viewed from below. There is some patchy erythema consistent with gastritis. In the distal gastric body, there is a sessile polypoid structure about 0.4 cm in width, reddish in color. This was carefully viewed with irrigation and suctioning. The scope was advanced down into the second portion of the duodenum and withdrawn with circumferential visualization. The bulb, pylorus and antrum were carefully viewed. There is no ulceration. No heaping up. No exposed vessel. No active bleeding. No angiodysplasia. Previously noted polyp was carefully examined and removed with a cold forceps standard technique. There was good hemostasis. The specimen was sent to Pathology. The scope was then withdrawn with careful withdrawal. There is some ileus staining in the gastric body. The scope was withdrawn with irrigation, decompression and suctioning as needed. The case will be discussed with the patient when the patient is more awake. She tolerated the procedure well. D: Cinthya Velarde MD TD: 15:36 JOB #: [id number] Electronically signed by: E-Sign Dr. Cinthya Velarde MD 07/20/17 17:09 Transcribed by: albert 07/20/2017 13:54 FINAL SURGICAL Observed: 07/19/2017 Status: F Source: [facility] PATHOLOGY REPORT 2:01 [facility] REPOSITORY . Pathology Reports Accession: Collected Date/Time: Received Date/Time: Pathologist: [id number] 07/19/2017 14:01 EST 07/20/2017 14:01 DO JUAN HENLEY Final Surgical Pathology Report DIAGNOSIS: GASTRIC: - FUNDIC GLAND POLYP. COMMENT: [facility] - A# [id number] CLINICAL INFORMATION: SCREENING SPECIMEN: A STOM, BX - DISTAL GASTRIC POLYP GROSS DESCRIPTION: _A. Received in formalin labeled a is a 0.3 cm rivas glistening soft tissue. A S - 1 Dictated by ANG[facility] ([facility]) MICROSCOPIC DESCRIPTION: Slides reviewed. Electronically Signed by Pathology Report verified by [facility] Electronically signed by JUAN GALVEZ DO Sign out Date: 07/21/2017 12:36 Performing Lab: [facility], [address] [place] [address] Performed By: #### SPFR #### [place] [address]60 [address] [place] [address] ALLERGIES ALLERGIES DATE TYPE / CODE NAME / CODE REACTION SEVERITY SOURCE 05/22/2018 Drug morphine/Z291417 gi upset [place] Allergy/416 545(RXNORM) Community 899364([facility] ED CT) Repository 05/22/2018 Drug aspirin/F7010122 respiratory [place] Allergy/416 87(RXNORM) distress Community 873872([facility] ED CT) Repository 05/22/2018 Drug meperidine/F0060 gi upset [place] Allergy/416 59480(RXNORM) Community 955174([facility] ED CT) Repository 01/14/2011 DRUG ASPIRIN SHORTNESS OF [facility] INGREDI/[address] [place] 765282(SNOM Repository ED CT) 01/14/2011 DRUG/544892 MEPERIDINE (PF) Vomiting [facility] 003(SNOMED [place] CT) Repository 01/14/2011 DRUG MORPHINE Vomiting [facility] INGREDI/419 [facility] [place] 212024(SNOM Repository ED CT) Drug ASPIRIN/41497262 Moderate Asaf [place] Allergy/416 (RXNORM) ([facility] 201570(SN Modifier) [facility] ED CT) (Qualifier Repository Value) Drug MEPERIDINE/30185 Moderate Asaf [place] Allergy/416 289(RXNORM) ([facility] 050198(SN Modifier) [facility] ED CT) (Qualifier Repository Value) Drug MORPHINE/7898480 Moderate Asaf [place] Allergy/416 8(RXNORM) ([facility] 358172(SN Modifier) [facility] ED CT) (Qualifier Repository Value) ENCOUNTERS ENCOUNTERS ADMIT/DISCHARGE ACCOUNT NUMBER ADMITTING ENCOUNTER LOCATION SOURCE CLASS 05/23/2018/05/23/20 [id number] CINTHYA VELARDE Ambulatory Asaf [place] 18 [facility] Repository 05/22/2018/05/22/20 [id number] Ambulatory BMSBuilding: [place] 18 [facility] Repository 05/16/2018 [id number] TOM, Ambulatory Asaf [place]ome[place] SU[facility] Repository 05/16/2018 [id number] TOM, Ambulatory Asaf [place] SUKI [facility] Repository 05/03/2018 [id number] [facility] Repository 04/22/2018/04/22/20 [id number] LAT[place]F, Ambulatory Asaf [place] 18 [facility] Repository 04/04/2018/04/04/20 [id number] [place], Ambulatory Asaf [place] 18 [facility] Repository 03/28/2018/03/28/20 [id number] [place], Ambulatory Asaf [place] 18 [facility] Repository 11/18/2017/11/19/19 [id number] CINTHYA VELARDE Ambulatory [address] [place] [place] [address] Room: [address] Repository 11/09/2017/11/10/19 [id number] CINTHYA VELARDE Ambulatory Asaf[address] Repository 11/01/2017/11/02/19 [id number] CINTHYA VLEARDE Ambulatory [address] Repository 10/31/2017/11/01/19 [id number] [facility], [facility]ulatory Asaf [place] 18 [facility] Repository 10/18/2017/10/19/19 [id number] [facility] Ambulatory [address] Repository 09/16/2017 [id number] Ambulatory [facility] Repository 08/26/2017/08/30/19 [id number] Ambulatory [address] Repository 08/23/2017/08/26/19 [id number] Ambulatory [address] Repository 08/17/2017/08/18/19 [id number] CINTHYA VELARDE Ambulatory [address] Repository 08/11/2017/08/12/19 [id number] TOM, [facility]ulatory [facility] 18 [facility] Repository 07/19/2017/07/19/19 [id number] CINTHYA VELARDE Ambulatory [address] [place] [address] Room: [address] Repository PAYERS PAYERS ENCOUNTER GUARANTOR PAYER SUBSCRIBER SOURCE 05/23/2018 CYNTHIA LEÓN: Asaf MELENDEZDOB: Insurance:MEDICARE [id number] [facility] [id number] [address] CR Number: [address] Repository [place], [id number] Dc [id number] D[place] [id number]: Date:Plan Name: () 05/23/2018 Secondary CYNTHIA AMADEODOB: Asaf Saavedra Insurance:HUMANA [id number] [facility] 0 [facility] OUTPATIENTPolicy [address] [place] [address], Repository Number: [place] [address] [id number] Date:Plan Name: 05/22/2018 CYNTHIA J Primary CYNTHIA Kim Mcmahon [id number] CR Insurance:MEDICARE WEAVERDOB: [address], PART A BPolicy Number: [id number] [facility] [address]Vex: [id number] Repository Date:2018-05-19 () 05/22/2018 Secondary CYNTHIAChacorta Mcmahon Insurance:HUMANA WEAVERDOB: [facility] [id number] Hospital Number: Repository [id number] Date:[id number] [address]LM: 05/22/2018 Tertiary NOT GIVENUNK [place] Insurance:SELF PAY [facility] Number: Effective Repository Date:2018-05-22 05/16/2018 CYNTHIA J Primary Insurance:CGS CYNTHIA Saavedra WEAVERDOB: - WEAVERDOB: [facility] [id number] [facility] CR Number: 0 CR Repository [address] [place] [address] [id number] [place] [address]Oae: Date:8550-81-49[place] [id number] Name: () 05/16/2018 Secondary CYNTHIAChacorta Saavedra Insurance:HUMANA WEAVERDOB: [facility] MEDICARE [id number] [facility] SUPPLEMENTPolicy 0 CR Repository Number: [place], [id number] [place] [id number] Date:4782-84-93Auie Name: 05/16/2018 CYNTHIA KAIAVERDOB: Primary CYNTHIA Saavedra [id number] Insurance:MEDICARE WEAVERDOB: [facility] [id number], Number: [address] [place]ository [place] [address]Qcc: [id number] Date:Plan Name: () 05/16/2018 Secondary CYNTHIA Saavedra Insurance:HUMANA WEAVERDOB: [facility] [id number] Health [facility] [address] [place] [address] Repository Number: [id number] Date: 05/03/2018 Cynthia J Primary Cynthia Kim [place] [id number] Insurance:MEDICARE WeBarrow Neurological InstituteB: [address], PART A A[facility]H Hospital Number: [id number] [address]Fnu: [id number] Repository Date:2018-04-25 () 05/03/2018 Secondary Cynthia Kim [place] [facility]: [facility] [id number] Hospital Number: Repository [id number] Date:7581-58-[address] [address]GS: 05/03/2018 Tertiary NOT GIVENUNK [place] Insurance:SELF PAY [facility] Number: Effective Repository Date:2018-04-25 04/22/2018 CYNTHIA LOWEB: Primary CYNTHIA LEÓN: Asaf Saavedra [id number] Insurance:MEDICARE [id number] [place] [address], Number: [facility] [place] [address]Utl: [id number] Dc [id number] Date:Plan Name: () 04/22/2018 Secondary CYNTHIA LEÓN: Asaf Saavedra Insurance:HUMANA [id number] [facility] MEDICARE 0 CR Hospital SUPPLEMENTPolicy [place], Repository Number: [place] [address] [id number] Date:2015-12-05 04/04/2018 CYNTHIA LOWEB: Primary CYNTHIA Saavedra Insurance:MEDICARE WEAVERDOB: [facility] [id number], Number: [address], [place]ository [place] [address]Rcs: [id number] Date:Plan Name: () 04/04/2018 Secondary CYNTHIA Saavedra Insurance:HUMANA WEAVERDOB: [facility] MEDICARE [id number] [place] [address] Repository Number: [address], [id number] [place] [id number] Date:2015-12-05 03/28/2018 CYNTHIA MELENDEZDOB: Primary CYNTHIA LOWEB: Asaf Benjaminlauryn Insurance:MEDICARE [id number] [address], Number: [facility], [place] [address]Kcq: [id number] Dc [id number] Date:Plan Name: () 03/28/2018 Secondary CYNTHIA MELENDEZDOB: Asaf Benjaminjoshuane Insurance:HUMAN [id number] [facility] MEDICARE 0 CR Hospital SUPPLEMENTPolicy [place], Repository Number: [place] [address] [id number] Date:2015-12-05 11/18/2017 CYNTHIA LOWEB: Primary CYNTHIA LOWEB: Asaf Benjaminlauryn Insurance:MEDICARE [id number] [address], Number: [facility], [place]ository [place] [address]Fie: [id number] Dc [id number] Date:Plan Name: () 11/18/2017 Secondary CYNTHIAChacorta MELENDEZDOB: Asaf Benjaminerene Insurance:HUMAN [id number] [facility] MEDICARE 0 CR Hospital SUPPLEMENTPolicy [place], Repository Number: [place] [address] [id number] Date:2015-12-05 11/09/2017 CYNTHIA LOWEB: Primary CYNTHIA Saavedra Insurance:MEDICARE WEAVERDOB: [facility] [id number], Number: [facility] [place], [place]ository [place] [address]Crx: [id number] Date:Plan Name: () 11/09/2017 Secondary CYNTHIAChacorta Saavedra Insurance:HUMANA WEAVERDOB: [facility] MEDICARE [id number] [place] [address] Repository Number: [place], [id number] D[place] [id number] Date:1758-16-68Fuwq Name: 11/01/2017 CYNTHIA J Primary CYNTHIA WEAVERDOB: Asaf GILLILANDAVERDOB: Insurance:MEDICARE [id number] [facility] [id number] [place] [address] CR Number: [address] [place] [address], Repository [address] [place] [address], [id number] Dc [id number] Dc [id number]: Date:Plan Name: () 11/01/2017 Secondary CYNTHIA WEAVERDOB: Asaf aSavedra Insurance:HUMANA [id number]Polmercyone cedar [facility] [id number] Repository Number: [id number] Date: 10/31/2017 CYNTHIAChacorta MELENDEZDOB: Primary CYNTHIAChacorta MELENDEZDOB: Asaf Saavedra Insurance:MEDICAREPoli [id number] [place] [address] cy Number: [address] [place] [address] [address], [id number] [place], [place]ository [place] [id number]: Date:Plan Name:[facility] [id number] () 10/31/2017 Secondary CYNTHIA WEAVERDOB: Asaf Benjaminerene Insurance:[facility] [id number] OUTPATIENTPolicy [id number] Repository Number: [id number] Date: 10/18/2017 CYNTHIA J Primary CYNTHIA WEAVERDOB: Asaf Alexanderlauryn LOWEB: Insurance:MEDICARE [id number] [facility] [address] CR Number: [id number] RAMONAVENIR [facility], Repository [address] [facility], [id number] Dc [id number] Dc [id number]: Date:Plan Name: () 10/18/2017 Secondary CYNTHIA WEAVERDOB: Asaf Benjaminlauryn Insurance:HUMANA [id number] OUTPATIENTPolicy [id number] Repository Number: [id number] Date: 09/16/2017 Cynthiachacorta LoweB: Primary Cynthia KaiaverDOB: [facility] Insurance[facility] [id number] Health [facility] cy Number: Effective Repository [address] [place] [address], Date:2015-12-05 [place] [address]Olv: () 09/16/2017 Secondary Cynthia KaiaverDOB: [facility] Insurance:MedicarePoli [id number] System cy Number: Effective Repository Date:2009-06-06 09/16/2017 Tertiary Cynthia KaiaverDOB: [facility]High[facility] Hospitalicy [id number] System Number: Effective Repository Date: 08/17/2017 CYNTHIA J Primary CYNTHIAChacorta LOWEB: Asaf LOWEB: Insurance:MEDICARE [id number] [facility] [address] CR Number: [address], Repository [address], [id number] Dc [id number] Dc [id number]: Date:Plan Name: () 08/17/2017 Secondary CYNTHIA WEAVERDOB: Asafbety [place] Insurance:HUMANA [id number] OUTPATIENTPoly [id number] Repository Number: [id number] Date:Plan Name: 08/11/2017 CYNTHIA J Primary CYNTHIA WEAVERB: Asaf LOWEB: Insurance:HUMAN [id number] [facility] MEDICARE 0 CR Hospital CR [address]PPLE[address], Repository [address] [place] [address], Number: [id number] D[place] [id number]: [id number] Date:[id number] () Name: 07/19/2017 CYNTHIA Alvarez Primary CYNTHIA MELENDEZDOB: Insurance:MEDICARE WEAVERDOB: [facility] [id number] [facility] CR Number: [address] Repository [place], [id number] [place] [id number]: Date:Plan Name: () 07/19/2017 Secondary CYNTHIA Saavedra Insurance:HUMANA WEAVERDOB: [facility] [id number] [address] [place] [address] Repository Number: [id number] Date:
== END ==
PROVIDERS: Family Provider Internal Medicine; PCP Internal Medicine; Visit Provider Surgery
DX: C50.911 Malignant neoplasm of unspecified site of right female breast (principal)
CPT/HCPCS: 19081; 88305; 88341; 88342; J7050; A4648

== ENCOUNTER 2018-06-08 13:01 | Observation (INO) | payer MEDICARE, OTHER, SELFPAY ==
[2018-05-22 15:11] VITALS: BMI 102725.9
--- NOTE | 2018-06-01 15:04 | RAD_ITS ---
STUDY: X-RAY CHEST REASON FOR EXAM: Female, 72 years old. Preoperative evaluation prior to mastectomy. TECHNIQUE: PA and lateral views of the chest. COMPARISON: Prior comparable comparison studies are not available for review at this time. FINDINGS: The lungs are clear and expanded. There is no demonstrated pleural abnormality. There is mild cardiac enlargement. Normal mediastinum and viktoriya. Normal visualized pulmonary arteries. There is atherosclerotic calcification of the aortic arch with tortuosity. There is an increased kyphosis of the thoracic spine. The bones appear osteopenic. Normal visualized ribs, clavicles, and shoulders. There is no demonstrated abnormality of the visualized soft tissue structures of the upper abdomen. RAD/Chest PA and Lateral IMPRESSION: Mild cardiomegaly. Electronically Signed: Jaqui Holloway MD at 3:18 EST , Service support ,
--- NOTE | 2018-06-01 15:04 | EKG12_ITS ---
Test Reason : SB Blood Pressure : / mmHG Vent. Rate : 071 BPM Atrial Rate : 071 BPM P-R Int : 152 ms QRS Dur : 076 ms QT Int : 394 ms P-R-T Axes : 041 035 042 degrees QTc Int : 428 ms Normal sinus rhythm Possible Left atrial enlargement Low voltage QRS Borderline ECG Confirmed by POLO COUCH, JAVED ([id number]), purchasing expeditor CHANTELLE VELARDE ([id number]) on 06/02/2018 3:34:36 PM Referred By: Jacky Calvillo Confirmed By:JAVED CUELLAR MD
[2018-06-01 16:50] LABS: Anion Gap 9 (5-15); BUN 23 mg/dL (7-18); BUN/Creat Ratio 21.7 RATIO (10-20); Calcium,Total 8.9 mg/dL (8.5-10.1); Chloride 106 mmol/L (98-107); Creatinine, Serum 1.06 mg/dL (0.55-1.02); EST Glomerular Filtration Rate 54 mL/min (>60); Est Glom Filt Rate - Afr Amer 65 mL/min (>60); Glucose 93 mg/dL (74-106); Sodium Level 142 mmol/L (136-145); Thyroid Stim Hormone (TSH) 2.49 uIU/mL (0.358-3.74)
[2018-06-01 17:03] LABS: Hematocrit 40.4 % (37-47); Hemoglobin 13.6 g/dl (12.0-15.0); Mean Corp Hgb Conc 33.7 g/gl (32-36); Mean Corpuscular Hgb 32.2 pg (27.0-32.0); Mean Corpuscular Volume 95.7 fL (81-99); Mean Platelet Vol. 11.3 fl (6.2-12.0); Platelet Count 238 K/mm3 (150-450); RBC Distribution Width CV 13.3 % (11.6-14.6); RBC Distribution Width SD 45.1 fl (35.1-43.9); Red Blood Count 4.22 M/mm3 (4.2-5.4); White Blood Count 5.5 K/mm3 (4.4-11.0)
[2018-06-01 17:20] LABS: Scan Indicated on CBC? Y/N NO
[2018-06-02 17:34] LABS: ALB/GLOB Ratio 1.1 RATIO (0.9-2.4); AST(SGOT) 30 U/L (15-37); Alanine Aminotransfer ALT/SGPT 29 U/L (13-56); Albumin, Serum 3.9 g/dL (3.2-5.0); Alkaline Phosphatase 54 U/L (45-117); Globulin 3.6 g/dL (2.2-4.2); Protein, Total 7.5 g/dL (6.4-8.2)
[2018-06-08] VITALS (13 sets, daily range): BP systolic 92–147; BP diastolic 48–64; PULSE 64–74; RESP 14–16; TEMP 36.1–36.9; O2SAT 92–99; BMI 27.5
--- NOTE | 2018-06-08 | AXNB_PTH ---
PATIENT: CYNTHIA WILLS LOC: MS2 U#:[id number] AGE/SX: 72/F ROOM: [facility] RE06/08/[address]: Dr. Jacky Calvillo MD : 1945 BED: 1 DIS: 06/09/2018 SPEC #: [id number] RECD: 06/08/18 11:54 STATUS: SANDRA REJonathan #: [id number] NAIMA: 06/08/18 00:[address]: Jacky Calvillo DEPT: SURGICAL PATHOLOGY RECD BY: Yudy Azul ENTERED: 06/08/18 12:30 SP TYPE: AX NODE BX OTHR DR: MD Dr. Joel Connor MD Tissues: A - Axillary lymph node, NOS B - Right breast, NOS Procedures: Frozen Section (charge) Frozen Section Add'l ([facility]) Surgery Specimen Level V Surgery Specimen Level Frozen (no charge) HEADER OPERATION: Right total mastectomy with radioactive tracer and blue dye PRE-OP DIAGNOSIS: Malignant neoplasm of lower-inner quadrant of right breast, ER positive; mammographic abnormality in upper right quadrant TISSUE SUBMITTED: A - Right sentinel lymph node sent for frozen at 1148, B - Right breast tissue, suture garay lateral aspect of right breast FROZEN SECTION DIAGNOSIS A. Right sentinel lymph nodes, biopsy: Four out of four lymph nodes, negative for metastatic carcinoma. SJ:rosa 06/08/18 MICROSCOPIC DIAGNOSIS A. Right axillary sentinel lymph nodes, biopsy: Four out of four lymph nodes negative for carcinoma. B. Right breast, mastectomy: Invasive ductal carcinoma. See complete cancer checklist below. AM:rosa 06/14/18 COMMENT A. Immunohistochemistry ([id number]) supports the above diagnosis. B. INVASIVE BREAST CANCER SUMMARY: Specimen: Total breast Procedure: Mastectomy Specimen integrity: Multiple fragments Specimen size: 22 x 19 x 6 cm Specimen laterality: Right breast Tumor size: 1.8 x 1.5 x 1 cm Tumor focality: Single focus of invasive carcinoma Macroscopic and Microscopic extent of tumor: Skin: Free of carcinoma Nipple: Free of carcinoma Skeletal muscle: Not present Histologic type of invasive carcinoma: Invasive ductal carcinoma Histologic Grade (Lane grade): Glandular/tubular differentiation score: 3 Nuclear pleomorphism score: 2 Mitotic count score: 2 Overall grade: Grade 2 (total score of 7) Margins: Uninvolved by invasive carcinoma. Distance from closest (posterior margin) - 2 cm Lymph-Vascular invasion: Not identified Dermal lymph-vascular invasion: Not identified Ductal carcinoma in situ (DCIS): DCIS present Estimated size (extent) of DCIS: 2 x 1 x 1 mm Number of blocks with DCIS: 2 out of 16 blocks Architectural patterns: Cribriform focal comedo Nuclear grade: grade 3/3 (high grade) Necrosis: Present, focal Lobular carcinoma in situ (LCIS): Not present Lymph nodes: Number of sentinel lymph nodes examined: 4 Total number of lymph nodes examined (sentinel and nonsentinel): 4 No evidence of macrometastases, micrometastases or isolated tumor cells. See specimen A. Microcalcifications: Present focally in non-neoplastic tissue Treatment effect: Unknown Additional pathologic findings: Fibrocystic change and focal intraductal hyperplasia without atypia. Extensive changes of previous biopsy, benign. Ancillary studies: Previously performed on same tumor ([id number] / [id number]) ER: >95%, strong WV: 10%, weak Her2 mirella: negative at 1+ PATHOLOGIC STAGE: pT1c N0 Mx The above summary is in compliance with [employer] (CAP) Cancer Protocols Checklist and [place] Joint Committee on Cancer (AJCC), Staging Manual, 8th Ed. B. Immunohistochemistry ([id number]) supports the above diagnosis. The second area of induration adjacent to the tumor consists entirely of biopsy cavity with associated reactive and reparative change. Case has been reviewed in consultation with Dr. Dupree and Dr. Castillo who concurs with the above diagnosis. IDC:PANCHO/DEBBY MICROSCOPIC DESCRIPTION Slides are reviewed. GROSS DESCRIPTION A - Received fresh for frozen section diagnosis labeled with the patient's name is a specimen designated right sentinel lymph node. The specimen consists of a piece of adipose tissue measuring 6 x 5 x 2 cm. Multiple nodules consistent with lymph nodes are identified measuring 0.3 to 3 cm in greatest dimension. The lymph nodes are submitted entirely for frozen section diagnosis. Work Over Rig Operator sections are submitted as follows: 1 & 2 - frozen section, one bisected lymph node, 3 - frozen section, one bisected lymph node, 4 - frozen section, two lymph nodes (one lymph node inked black), 5 & 6 - fibrous area ? possible lymph nodes. / SJ:rg 06/08/18 B - Received in fixative is one container labeled with the patient's name and designated right breast tissue. The specimen consists of a mastectomy specimen consisting of breast tissue with overlying skin ellipse. The breast tissue measures 22 x 19 x 6 cm. The overlying skin ellipse measures 18 x 7 cm. The nipple measures 0.7 cm in greatest dimension. Also present in the container are three variable sized pieces of detached fibroadipose tissue measuring in aggregate 7 x 7 x 2 cm. Also present in the container is a detached piece of rivas-white skin ellipse measuring 8.5 x 1 cm and up to 0.7 cm in thickness. The skin surface over the breast tissue shows blue dye discoloration in the area of nipple areolar complex. Sections of detached adipose tissue do not reveal any mass lesion. No skin lesion is identified. The resection margins are inked as follows: superior - blue, inferior - green, medial - red, lateral - orange, and posterior - black. An area of retraction is noted in the central portion of the breast tissue close to the posterior surface. More dictation will follow after additional fixation. / SJ:rg 06/08/18 Serial sections reveal a rivas, indurated area predominantly consisting of biopsy cavity measuring 1.8 x 1 x 1.5 cm. This area is 2 cm away from the closest posterior margin. A second congested, indurated area is also noted about 1.5 cm away from the previous indurated area and this second area measures 2 x 1.5 x 1.5 cm. The second area is about 4 cm away from the closest deep margin. Sections of the rest of the specimen reveals rivas-yellow adipose cut surfaces mixed with rivas-white fibrous areas. The indurated mass is present in the lower inner quadrant of the specimen. Work Over Rig Operator sections are submitted in 16 cassettes as follows: 1 - nipple, entirely submitted, 2 & 3 - perpendicular margin and skin, 4-7 - the entire nodular mass, 8-12 - entire second area of induration, 13-16 - representative government relations sections from the other area. Sections will be submitted after additional fixation. / SJ:rg 06/09/18 TC:0 CPT: 73978, 81671, 03377, 17813 x3 ADDENDUM ADDENDUM ADDENDUM ADDENDUM ADDENDUM ADDENDUM ADDENDUM ADDENDUM 07/10/2018 10:23 ADDENDUM 07/10/2018 10:23 ADDENDUM 07/10/2018 10:23 ADDENDUM 07/10/2018 10:23 ADDENDUM 07/10/2018 10:23 An order for Oncotype testing was received from Dr. Kelly. This necessitated case review, block and slide selection by pathologist at [facility]. Breast Cancer Recurrence Score = 32 Results of the complete Oncotype testing ([employer] report) are viewable in EMR under: Reports - Pathology - Lab Pathology Report, Scanned.
--- NOTE | 2018-06-08 | IMM_PTH ---
PATIENT: CYNTHIA WILLS LOC: MS2 U#:[id number] AGE/SX: 72/F ROOM: [facility] [place] RE06/08/[address]: Dr. Jacky Calvillo MD : 1945 BED: 1 DIS: 06/09/2018 SPEC #: [id number] RECD: 06/14/18 10:06 STATUS: SANDRA REJonathan #: [id number] NAIMA: 06/08/18 00:[address]: Jacky Calvillo DEPT: IMMUNOHISTOCHEMISTRY RECD BY: Yudy Azul ENTERED: 06/14/18 10:08 SP TYPE: IMMUNO OTHR DR: MD Dr. Joel Connor MD Tissues: A - Axillary lymph node, NOS B - Right breast, NOS Procedures: CD31 (add) CK7 (add) Factor VIII (initial) Pankeratin (initial) Pankeratin (add) PHYSICIAN & INSTITUTION [place] [id number] SPECIMEN INFORMATION: Tissue Source: A - Right sentinel lymph nodes, biopsy, B - Right breast tissue, mastectomy Clinical Info: Malignant neoplasm of lower inner quadrant right breast Specimen Number: [id number] A1-A4, B4 CPT code: 88257 x2, 83962 x8 METHODOLOGY: Deparaffinized sections of prefer/formalin-fixed tissue or PAP/DQ stained slides are incubated with monoclonal/polyclonal antibodies/oligonucleotide probes. Localization is made via biotin free immunoperoxidase method. Appropriate controls are performed and reacted as expected. Results on target cell population are indicated in the following table: RESULTS: ANTIBODY / CLONE RESULT Block 1 CK7 (OV-TL12/30) positive AE1-3 (AE1/AE3/PCK26) positive Block 2 CK7 (OV-TL12/30) positive AE1-3 (AE1/AE3/PCK26) positive Block 3 CK7 (OV-TL12/30) positive AE1-3 (AE1/AE3/PCK26) positive Block 4 CK7 (OV-TL12/30) positive AE1-3 (AE1/AE3/PCK26) positive Block B4 Factor VIII (R Ag) negative CD31 (ROSIE/70A) negative These tests were developed and their performance characteristics determined by [facility]. They may not have been cleared or approved by the U.S. Food and Drug Administration. The FDA has determined that such clearance or approval is not necessary. INTERPRETATION: A. Right sentinel lymph nodes, biopsy: Four out of four lymph nodes negative for carcinoma. B. Right breast tissue, mastectomy: Invasive carcinoma, no evidence of vascular invasion. AM:rosa 06/14/18
--- NOTE | 2018-06-08 07:16 | NM_ITS ---
PROCEDURE: NUCLEAR MEDICINE Injection [place] Node - RIGHT breast(s). REASON FOR EXAM: Female, 72 years old. Right breast cancer. TECHNIQUE: [place] node localization using radionuclide methods of the RIGHT breast(s) was performed following subcutaneous administration of 1.1 mCi of of sulfur colloid Tc-99m. FINDINGS: 1.1 mCi of technetium labeled sulfur colloid was injected in 4 equal aliquots in the upper medial aspect of the breast. NM/Lymph Node Injection Only IMPRESSION: Subcutaneous injection of 1.1 mCi of technetium level sulfur colloid for sentinel node imaging. Electronically Signed: Star Salas MD at 8:49 EST Tel [phone], Service support ,
--- NOTE | 2018-06-08 10:59 | DCINST_ITS ---
Discharge Diet: No Restrictions Discharge Activity: May Not Drive - for 2-3 days or while taking narcotic pain meds. May shower in (days): 1 Lifting Restrictions: 10 pounds for 1 week. Call your doctor if your incision/area has: Continuous Slow Oozing, Sudden In creased Bleeding Call your doctor if you observe: Fever of 101 or Higher Suture Line Care: Avoid Pulling/Pushing, Avoid Pinching/Bending Remove Dressing in (days):: 1 - Remove bulky dressing tomorrow. May leave any opsite dressing for 3-4 days. Keep dressing in place until your follow-up appointment. Additional Dressing/Incision Instructions:: You may remove your right chest and armpit dressing daily. The incision itself will not require any specific care. Utilize a Q-tip and peroxide to cleanse around the drain sites and then recover with dry gauze and the elastic wrap. Empty and measure and record the drain output. Allergies/Adverse Reactions: Allergies aspirin [ASA] Allergy (Severe, Verified 06/08/18 07:39) respiratory distress meperidine [From Demerol] Adverse Reaction (Intermediate, Verified 06/08/18 07:39) GI upset morphine Adverse Reaction (Mild, Verified 06/08/18 07:39) GI upset adhesive tape Adverse Reaction (Verified 06/08/18 07:39) Rash Medications to take at Discharge calcium carbonate 500 mg calcium (1,250 mg) chewable tablet 500 mg PO BID tab 05/22/18 levothyroxine 75 mcg capsule 50 mcg PO MOTUWETHFRSA 05/22/18 metoprolol succinate ER 25 mg capsule sprinkle, ext. release 24 hr 12.5 mg PO DAILY ea 05/22/18 omega-3 fatty acids 1,000 mg capsule 1,000 mg PO DAILY 05/22/18 pantoprazole 40 mg tablet,delayed release 40 mg PO QHS 05/22/18 vitamin B complex tablet 1 tab PO DAILY 05/22/18 vitamin E mixed 400 unit capsule 400 unit PO DAILY cap 05/22/18 Glucosam/MSM/Chondroit/Vit D3 [Sv Glucosamine Chondroitin Tab] 1 each PO BID 05/26/18 Levothyroxine Sodium [Levoxyl] 75 mcg PO STANLEY 05/26/18 Red Yeast Rice 600 mg PO BID 05/26/18 Orders to be completed after discharge: 12 Lead EKG [CVS] Time Frame: 05/31/18, Location: None Selected Chest PA and Lateral [RAD] Time Frame: 05/31/18, Location: None Selected CBC-Complete Blood Cnt No Diff Time Frame: 05/31/18, Location: Laboratory Comprehensive Metabolic Profil Time Frame: 05/31/18, Location: Laboratory Thyroid Stim Hormone (TSH) Time Frame: 05/31/18, Location: Laboratory Primary Care Physician: Temi Santos [Primary Care Provider] - Please Follow Up With: Jacky Calvillo MD When: Office follow-up as discussed with Dr. Vitaly Calvillo [phone]
[2018-06-08] MEDS: Isosulfan Blue 1% 5 ML Vial (11:15)
--- NOTE | 2018-06-08 13:04 | PCM.OPRPT ---
Problem List (1) Breast cancer, right Status: Acute Qualifiers: Breast location: lower inner quadrant of breast Estrogen receptor status: positive Patient sex: female Qualified Code(s): C50.311 - Malignant neoplasm of lower-inner quadrant of right female breast; Z17.0 - Estrogen receptor positive status [ER+] Report of Operation Date of Procedure: 06/08/18 Pre-Operative Diagnosis: Invasive ductal carcinoma lower inner right breast Post-Operative Diagnosis: Same Surgery/Procedure Performed:: Right total mastectomy with right axillary blue dye and nuclear tracer sentinel lymph node biopsy Description of Surgical Findings:: Timeout and informed consent was obtained at 72-year-old female was taken off room. She was placed supine on the table. She underwent general anesthesia. The right arm was carefully wrapped at soft roll and placed at right angles of the table on an arm champion. The right periareolar breast was prepped with alcohol. 2 cc of isosulfan blue dye was injected retroareolarly. The isthmus was side for 3 minutes. Then the right breast and axilla were sterilely prepped and draped. A transverse elliptical excision was performed. The previous stereotactic biopsy site was medially placed. I had to raise the transverse ellipse in order to incorporate that site. Superior flaps were created with electrocautery. Dissection performed to the axilla. I utilized the neoprobe and blue dye. The blue dye seemed to track more inferiorly. The neoprobe suggested activity in the axillary tail of the breast area. Did not see any blue dye tracking to this area. Resected the lymph node packet that seem to be adjacent to the hiatus area of neoprobe activity. I did not palpate or visualize any enlarged lymph nodes. That specimen was sent and by pathology revealed 4 sentinel nodes all negative. The inferior flap was then created. This was a longer flap than usual because of the placement of the transverse elliptical excision. There was extra fibrofatty tissue on the inferior lateral portion of the flap that had to continue to be trimmed to allow for a flatter placement of the skin flaps. Then the breast was taken off the chest wall taking the pectoralis fascia with it. Hemostasis was obtained with a lecture cautery. The chest wall and axilla were irrigated with sterile water. 2 stab incisions were made inferior laterally and 2 round 15 RICKY drains were exited. There was secured to skin with interrupted 3-0 nylon. The axillary one was shortened the length. The flaps were then approximated with multiple interrupted 3-0 Vicryl and interrupted 4-0 Monocryl sutures. Multiple pleating stitches to applying the flaps to the chest wall were additionally performed in an effort to occlude potential seroma space. Good closure was achieved. The wound edges appear to be viable. Steri-Strips Telfa bulky dry dressings bias ply wrap was applied. Sponge and instrument and needle counts were reported to the surgeon to be correct. Blood loss was minimal. She tolerated the procedure well was taken to the recovery area in satisfactory condition without apparent complication. Specimens include the right total mastectomy and the right axillary sentinel lymph nodes. Drains 215 round RICKY drains. Blood loss minimal. Jacky Calvillo M.D., F.A.C.S. Type of Anesthesia:: General Anesthesiologist: Jackie Leal
[2018-06-08] MEDS: Acetaminophen 325 MG Tablet 650 MG PO (18:02)
[2018-06-08] MEDS: LORazepam 2 MG/ML Syringe 0.5 MG IV (19:48)
[2018-06-08] MEDS: Pantoprazole Sodium 40 MG Tablet PO (21:05)
[2018-06-09 02:00] VITALS: BP 105/44; PULSE 63; RESP 16; TEMP 36.1; O2SAT 94
[2018-06-09] MEDS: Levothyroxine 50 MCG Tablet PO (05:50)
[2018-06-09] MEDS: LORazepam 2 MG/ML Syringe 0.5 MG IV (05:50)
[2018-06-09 05:54] VITALS: BP 104/44; PULSE 67; RESP 16; TEMP 36.6; O2SAT 93
[2018-06-09 05:57] VITALS: BP 104/44; PULSE 67
[2018-06-09] MEDS: Metoprolol(XL)Succ 25 MG Tablet 12.5 MG PO (05:57)
--- NOTE | 2018-06-09 06:21 | PCM.PN.SRG ---
Subjective: Pt had tylenol and ativan with good results Will request office follow up on Tuesday - Physical Exam Lungs: - - right chest wall incision appears clean and dry and viable RICKY serosanguinous drainage Vital Signs Temp Pulse Resp BP Pulse Ox 97.9 F 67 16 104/44 L 93 06/09/18 05:54 06/09/18 05:57 06/09/18 05:54 06/09/18 05:57 06/09/18 05:54 Oxygen Flow Rate (L/min) 2 Oxygen Delivery Method Room Air Weight: 145 lb 8.081 oz Body Mass Index (BMI) 27.5 Intake and Output for Last 24 Hours 06/07/18 06/08/18 06/09/18 23:59 23:59 23:59 Intake Total 2212 / 2212 600 / 600 Output Total 1255 / 1255 Balance 2195 / 2195 -655 / -655 Medical Necessity - Tobacco Use Smoking Status: Never smoker Tobacco Use: Non-smoker Assessment/Plan All Active Problems (Last Updated 05/22/18 @ 15:25 by Maryjane Lundberg) Breast cancer, right (Acute) Mastectomy site appears clean and intact Ready for discharge Will utilize tylenol supplemented with ativan at home to assist with pain rather than narcotics. Pt has no current nausea. She is very pleased
[2018-06-09 08:02] VITALS: BP 122/55; PULSE 63; RESP 18; TEMP 36.8; O2SAT 98
== END 2018-06-09 10:30 | disposition home or self-care (01) ==
LOC: SDC 13:46 → MS2 06-09 06:14
PROVIDERS: Admitting Provider Surgery; Family Provider Internal Medicine; PCP Internal Medicine; Referring Provider Surgery; Visit Provider Surgery
PROC: (CPT 19307; principal; 2018-06-08 10:45)
DX: C50.311 Malignant neoplasm of lower-inner quadrant of right female breast (principal); Z71.0 Person encountering health services to consult on behalf of another person; Z79.899 Other long term (current) drug therapy; K21.9 Gastro-esophageal reflux disease without esophagitis; I10 Essential (primary) hypertension; E03.9 Hypothyroidism, unspecified
CPT/HCPCS: 00400; 19303; 38525; 36415; 38792; 71046; 80048; 80053; 84443; 85027; 88305; 88307; 88309; 88331; 88332; 88341; 88342; 93005; 96374; 96376; 99218; A9541; J7120; G0378; G0379; J2405; Q9968

== ENCOUNTER 2018-07-19 10:16 | Day surgery (SDC) | payer MEDICARE, OTHER, SELFPAY ==
[2018-07-11 15:14] VITALS: BMI 28.1
[2018-07-19] VITALS (8 sets, daily range): BP systolic 111–137; BP diastolic 65–99; PULSE 63–76; RESP 16–18; TEMP 36.3–37.5; O2SAT 95–100; BMI 28.0; BMI 27.1
--- NOTE | 2018-07-19 11:09 | PCM.HP.STD ---
Problem List (1) Breast cancer, right Status: Acute Comment: High risk for recurrence by Oncotype DX History of Present Illness Date of Admission: 07/19/18 Chief Complaint: Breast Cancer, right The patient is a 73 year old F who presents with right breast cancer. Patient is s/p right mastectomy with sentinel lymph node biopsy by Dr. Calvillo. Patient is in need of chemotherapy and would like a port-a-cath placed. Patient denies previous port placement. She denies complications with anesthesia. She is scheduled to start treatment next Tuesday. Past Medical History Past Medical History (Chronic Problems): Chronic Problems (Last Reviewed 07/19/18 @ 08:37 by Pamela Noyola) HTN (hypertension) (Chronic) Medical History: Medical History (Last Reviewed 07/19/18 @ 11:12 by Sandra Kraus PA-C) Breast cancer, right (Acute) C50.911 High risk for recurrence by Oncotype DX MVP (mitral valve prolapse) (Acute) I34.1 HTN (hypertension) (Chronic) I10 Hypothyroidism (Acute) E03.9 GERD (gastroesophageal reflux disease) (Acute) K21.9 Hemorrhoids (Acute) K64.9 Cardiac murmur (Acute) R01.1 Breast cancer (Acute) Onset Date: ~04/2018 C50.919 Allergies aspirin [ASA] Allergy (Severe, Verified 07/19/18 08:37) respiratory distress adhesive tape Adverse Reaction (Intermediate, Verified 07/19/18 08:37) Rash meperidine [From Demerol] Adverse Reaction (Intermediate, Verified 07/19/18 08:37) GI upset morphine Adverse Reaction (Mild, Verified 07/19/18 08:37) GI upset Home Medications: Ambulatory Orders Medication Instructions Recorded levothyroxine 75 mcg capsule 50 mcg PO MOTUWETHFRSA 05/22/18 metoprolol succinate ER 25 mg 12.5 mg PO DAILY ea 05/22/18 capsule sprinkle, ext. release 24 hr omega-3 fatty acids 1,000 mg 1,000 mg PO DAILY 05/22/18 capsule pantoprazole 40 mg tablet,delayed 40 mg PO QHS 05/22/18 release vitamin E mixed 400 unit capsule 400 unit PO DAILY cap 05/22/18 Glucosam/MSM/Chondroit/Vit D3 [Sv 1 tab PO BID 05/26/18 Glucosamine Chondroitin Tab] Red Yeast Rice 600 mg PO BID 05/26/18 Calcium Carbonate/Vitamin D3 1 each PO DAILY 07/11/18 [Calcium 600 + Vit D Tablet] Cyanocobalamin [Vitamin B12] 1,000 mcg PO DAILY@0800 07/13/18 Levothyroxine Sodium 50 mcg PO STANLEY 07/13/18 Vitamin A 24,000 unit PO DAILY 07/13/18 Lidocaine/Prilocaine 1 applicatio TP DAILY PRN PRN 30 07/19/18 [Lidocaine-Prilocaine Cream] Days #1 tube Ondansetron [Ondansetron Odt] 8 mg PO Q8H PRN PRN 10 Days #30 07/19/18 tab.rapdis Surgical History: Surgical History (Last Reviewed 07/19/18 @ 11:12 by Sandra Kraus PA-C) Hx of right mastectomy (Acute) Z90.11 06/08/18 History of repair of right rotator cuff (Acute) Z98.890 History of eye surgery (Acute) Z98.890 History of back surgery (Acute) Z98.890 History of cholecystectomy (Acute) Z90.49 Lives: With Family Smoking Status: Never smoker Tobacco Use: Non-smoker Review of Systems Constitutional: Denies: Chills, Fever, Weight Change HEENT: Denies: Head Aches, Sinus Congestion, Sinus Drainage Cardiovascular: Denies: Chest Pain, Palpitations Respiratory: Denies: Cough, Shortness of breath at rest, Sputum production Gastrointestinal: Denies: Abdominal Pain, Nausea, Vomiting Genitourinary: Denies: Dysuria Musculoskeletal: Denies: Joint Pain, Joint Tenderness Skin: Denies: Rash, Wounds Neurological: Denies: Numbness, Tingling, Focal weakness Psychiatric: Denies: Anxiety, Depression, Homicidal Ideations, Suicidal Ideations Hematologic/ Lymphatic: Denies: Easy Bruising, Easy Bleeding VTE Information - Inpt Only VTE Present on Admission: Yes Patient Problems: Active and Suspected Problems (Last Reviewed 07/19/18 @ 08:37 by Pamela Noyola) Educational circumstance (Acute) - Physical Exam General: Alert, Oriented x3, Cooperative HEENT: Atraumatic, PERRLA, EOMI, Normocephalic Neck: Supple, No JVD, Negative Carotid Bruits Lungs: Clear to auscultation, Normal air movement Cardiovascular: Regular rate, No murmurs Abdomen: Bowel Sounds Present, Soft, Non Tender Extremities: No edema, Capillary Refill Less than 3 Seconds Skin: No rashes, No breakdown Musculoskeletal: No Tenderness to Palpation of Joints or Extremities Neurological: Neuro grossly intact Psych/Mental Status: Normal Affect, Appropriate Vital Signs Temp Pulse Resp BP Pulse Ox 98.3 F 69 18 120/73 100 07/19/18 10:45 07/19/18 10:45 07/19/18 10:45 07/19/18 10:45 07/19/18 10:45 Oxygen Delivery Method Room Air Weight: 143 lb 4.807 oz Body Mass Index (BMI) 27.1 Assessment/Plan All Active Problems (Last Reviewed 07/19/18 @ 08:37 by Pamela Noyola) Educational circumstance (Acute) Hx of right mastectomy (Acute) Breast cancer, right (Acute) History of repair of right rotator cuff (Acute) MVP (mitral valve prolapse) (Acute) Hypothyroidism (Acute) GERD (gastroesophageal reflux disease) (Acute) History of eye surgery (Acute) History of back surgery (Acute) History of cholecystectomy (Acute) Hemorrhoids (Acute) Cardiac murmur (Acute) Breast cancer (Acute ~04/2018) Dr. Calvillo will plan to perform a left internal jugular port-a-cath placement. Procedure details, risks and benefits have been explained. Patient has had the opportunity to ask and have questions answered. She desires to proceed with the proposed procedure.
[2018-07-19] MEDS: Cefazolin 2 GM in 0.9% Normal Saline 100 ML IV (13:08)
--- NOTE | 2018-07-19 13:12 | DCINST_ITS ---
Discharge Diet: No Restrictions - Pain medication may cause nausea. You should typically eat light foods as you take your pain medication. Discharge Activity: Return to Normal Activity, May Shower - Leave the bandage on for 2-3 days. When you remove the bandage, leave the steri-strips intact until they fall off. Additional Activity Instructions:: You may drive in 1-2 days if you are only taking onxr-[id number]-[id number] pain medicine Additional Dressing/Incision Instructions:: Leave the bandage on for 2-3 days. When you remove the bandage, leave the steri-strips intact until they fall off. Allergies/Adverse Reactions: Allergies aspirin [ASA] Allergy (Severe, Verified 07/19/18 08:37) respiratory distress adhesive tape Adverse Reaction (Intermediate, Verified 07/19/18 08:37) Rash meperidine [From Demerol] Adverse Reaction (Intermediate, Verified 07/19/18 08 :37) GI upset morphine Adverse Reaction (Mild, Verified 07/19/18 08:37) GI upset Medications to take at Discharge levothyroxine 75 mcg capsule 50 mcg PO MOTUWETHFRSA 05/22/18 metoprolol succinate ER 25 mg capsule sprinkle, ext. release 24 hr 12.5 mg PO DAILY ea 05/22/18 omega-3 fatty acids 1,000 mg capsule 1,000 mg PO DAILY 05/22/18 pantoprazole 40 mg tablet,delayed release 40 mg PO QHS 05/22/18 vitamin E mixed 400 unit capsule 400 unit PO DAILY cap 05/22/18 Glucosam/MSM/Chondroit/Vit D3 [Sv Glucosamine Chondroitin Tab] 1 tab PO BID 05/26/18 Red Yeast Rice 600 mg PO BID 05/26/18 Calcium Carbonate/Vitamin D3 [Calcium 600 + Vit D Tablet] 1 each PO DAILY 07/11/18 Cyanocobalamin [Vitamin B12] 1,000 mcg PO DAILY@0800 07/13/18 Levothyroxine Sodium 50 mcg PO STANLEY 07/13/18 Vitamin A 24,000 unit PO DAILY 07/13/18 Lidocaine/Prilocaine [Lidocaine-Prilocaine Cream] 1 applicatio TP DAILY PRN PRN 30 Days #1 tube 07/19/18 Ondansetron [Ondansetron Odt] 8 mg PO Q8H PRN PRN 10 Days #30 tab.rapdis 07/19/18 Primary Care Physician: Temi Santos [Primary Care Provider] - Test Results: Test results from this visit will be discussed in further detail at your follow- up appointment, if applicable. Please Follow Up With: Jacky Calvillo MD - [phone]
[2018-07-19] MEDS: Bupivacaine Mpf 0.5% 30 ML VIAL (13:25)
--- NOTE | 2018-07-19 13:55 | PCM.OPRPT ---
Problem List (1) Breast cancer, right Status: Acute Comment: High risk for recurrence by Oncotype DX Report of Operation Date of Procedure: 07/19/18 Pre-Operative Diagnosis: Higher risk right breast cancer based upon Oncotype DX Post-Operative Diagnosis: Same Surgery/Procedure Performed:: Left internal jugular 6 Filipino power port placement Description of Surgical Findings:: Timeout and informed consent was obtained. 73-year-old female was taken to the operating placement table underwent monitored anesthesia care. Ancef 2 g given intravenously preoperatively. The left neck and chest were sterilely prepped and draped. Ultrasound was used to identify the left internal jugular vein. 1% lidocaine mixed 50-50 with 0.5% Marcaine was used as a local anesthetic. This was instilled under ultrasound guidance. A total of 18 cc was used throughout the procedure. Micropuncture needle was inserted under ultrasound guidance micropuncture wire inserted fluoroscopy demonstrated positioning. Then local was instilled down upon the left anterior chest wall. A transverse incision was created using electrocautery sub-changes pocket was created. The tubing was tunneled from the neck to the chest site. Then a sheath dilator placed over the micropuncture wire. I made initial attempts to place an 035 J-wire but that became curled at the SVC innominate junction. So then I used an 035 angled Glidewire. I could then remove the micropuncture sheath and advanced the 6 Filipino sheath dilator and with manipulation was able to get that to go in the SVC. I then advanced the tubing through the sheath. The sheath was split. With the help of a 035 angled Glidewire the tubing was placed at the SVC atrial junction. The tubing was amputated to length connected to the port and secured there with the port attachment device. The port was placed in the pocket and secured there with interrupted 2-0 silk. The port site was closed with interrupted 3-0 Vicryl subdermal stitches. The neck was closed with interrupted 5-0 Vicryl. The port was accessed. It aspirated well was flushed with saline and then 2-1/2 cc of heparinized saline. Steri-Strips Telfa OpSite dressings applied. Sponge and instrument and needle counts were reported the surgeon be correct. Blood loss was minimal. No apparent complication. She was taken to the recovery area in satisfactory condition with stat portable chest x-ray is pending. The port was reference #[id number]. Lot number [id number], expiry date 11/04/2019 Jacky Calvillo M.D., F.A.C.S. Type of Anesthesia:: Local MAC Anesthesiologist: Michael Dennis
--- NOTE | 2018-07-19 13:59 | OP.PCM_ITS ---
Problem List (1) Breast cancer, right Status: Acute Comment: High risk for recurrence by Oncotype DX Report of Operation Date of Procedure: 07/19/18 Pre-Operative Diagnosis: Higher risk right breast cancer based upon Oncotype DX Post-Operative Diagnosis: Same Surgery/Procedure Performed:: Left internal jugular 6 [place] power port placement Description of Surgical Findings:: Timeout and informed consent was obtained. 73-year-old female was taken to the operating placement table underwent monitored anesthesia care. Ancef 2 g given intravenously preoperatively. The left neck and chest were sterilely prepped and draped. Ultrasound was used to identify the left internal jugular vein. 1% lidocaine mixed 50-50 with 0.5% Marcaine was used as a local anesthetic. This was instilled under ultrasound guidance. A total of 18 cc was used throughout the procedure. Micropuncture needle was inserted under ultrasound guidance micropuncture wire inserted fluoroscopy demonstrated positioning. Then local was instilled down upon the left anterior chest wall. A transverse incision was created using electrocautery sub-changes pocket was created. The tubing was tunneled from the neck to the chest site. Then a sheath dilator placed over the micropuncture wire. I made initial attempts to place an 035 J-wire but that became curled at the SVC innominate junction. So then I used an 035 angled Glidewire. I could then remove the micropuncture sheath and advanced the 6 [place] sheath dilator and with manipulation was able to get that to go in the SVC. I then advanced the tubing through the sheath. The sheath was split. With the help of a 035 angled Glidewire the tubing was placed at the SVC atrial junction. The tubing was amputated to length connected to the port and secured there with the port attachment device. The port was placed in the pocket and secured there with interrupted 2-0 silk. The port site was closed with interrupted 3-0 Vicryl subdermal stitches. The neck was closed with interrupted 5-0 Vicryl. The port was accessed. It aspirated well was flushed with saline and then 2-1/2 cc of heparinized saline. Steri-Strips Telfa OpSite dressings applied. Sponge and instrument and needle counts were reported the surgeon be correct. Blood loss was minimal. No apparent complication. She was taken to the recovery area in satisfactory condition with stat portable chest x-ray is pending. The port was reference #[id number]. Lot number [id number], expiry date 11/04/2019 Jacky Calvillo M.D., F.A.C.S. Type of Anesthesia:: Local MAC Anesthesiologist: Michael Dennis
--- NOTE | 2018-07-19 14:22 | RAD_ITS ---
STUDY: X-RAY CHEST REASON FOR EXAM: Female, 73 years old. Line placement. TECHNIQUE: Single AP portable view of the chest. COMPARISON: Comparison is made with prior study dated June 01, 2018. FINDINGS: A left-sided portacatheter has been placed. The tip is in the midportion of the superior vena cava. Hyperinflation. There is no demonstrated pleural abnormality. There is borderline cardiomegaly. Normal mediastinum and viktoriya. Normal visualized pulmonary arteries. There is atherosclerotic calcification of the aortic arch with tortuosity. Normal visualized thoracic spine. Normal visualized ribs, clavicles, and shoulders. There is no demonstrated abnormality of the visualized soft tissue structures of the upper abdomen. RAD/Chest 1 View (Portable) IMPRESSION: The tip of the left portacatheter is in the midportion of the superior vena cava. Electronically Signed: Star Salas MD at 15:53 EST , Service support ,
== END 2018-07-19 17:19 | disposition home or self-care (01) ==
LOC: SDC 10:16 → AC 10:17
PROVIDERS: Family Provider Internal Medicine; PCP Internal Medicine; Referring Provider Surgery; Visit Provider Surgery
PROC: (CPT 36561; principal; 2018-07-19 12:15)
DX: Z45.2 Encounter for adjustment and management of vascular access device (principal); C50.911 Malignant neoplasm of unspecified site of right female breast; K21.9 Gastro-esophageal reflux disease without esophagitis; Z79.899 Other long term (current) drug therapy; I10 Essential (primary) hypertension; E03.9 Hypothyroidism, unspecified
CPT/HCPCS: 36561; 71045; 77001; J7120; C1769; J2405

== ENCOUNTER 2018-08-22 15:00 | Inpatient (IN) | payer MEDICARE, OTHER, SELFPAY ==
[2018-08-22 14:12] VITALS: BMI 27.3
[2018-08-22 15:01] VITALS: BP 125/68; PULSE 92; RESP 17; TEMP 37.2; O2SAT 95; BMI 26.4
--- NOTE | 2018-08-22 15:35 | RAD_ITS ---
STUDY: X-RAY CHEST REASON FOR EXAM: Female, 73 years old. Neutropenia. Fever. Recent chemotherapy TECHNIQUE: Single AP portable view of the chest. COMPARISON: July 19, 2018. FINDINGS: Port on the left extends to the superior vena cava. There are surgical clips in the right axillary region. There are interstitial fibrotic changes of the lungs. There is left upper lung granuloma. There is no demonstrated pleural abnormality. Normal size heart. Normal mediastinum and viktoriya. Normal visualized pulmonary arteries. There is atherosclerotic calcification of the aortic arch with tortuosity. There is demineralization of the osseous structures. Normal visualized ribs, clavicles, and shoulders. There is no demonstrated abnormality of the visualized soft tissue structures of the upper abdomen. RAD/Chest 1 View (Portable) IMPRESSION: Degenerative changes, as described above. No demonstrated acute cardiopulmonary process. Electronically Signed: Nakul Aguero MD at 16:37 EDT , Service support ,
--- NOTE | 2018-08-22 15:40 | ED.VISSUMM ---
- ER Visit Summary Date of Service: 08/22/18 Chief Complaint: Fever, neutropenia History of Present Illness: The patient is a 73 F presenting with fever and neutropenia. Patient was sent over by the cancer center. She states she started having fevers on Tuesday. Her T-max was 100.9 today. She complains of mild sore throat. She has mild shortness of breath. She denies cough. She denies chest pain. She has mild abdominal cramping and nausea. She denies vomiting. She has diarrhea which is no worse than usual. She denies urinary complaints. She took Tylenol and Motrin 11:30 AM. Her last chemotherapy was August 16. This is her second round of this chemotherapy. She was admitted following the first around at [facility] for neutropenic fever. History of stage I breast cancer. Physical Examination: Vitals are stable. Temperature 99. Alert no acute distress. HEENT exam dry mucous membranes. Pharynx is normal. Neck is supple. Lungs are clear and equal bilaterally. Heart is regular rate and rhythm. Abdomen is soft nontender nondistended. No rebound or guarding Extremities are unremarkable. Skin is warm and dry. No focal neurologic deficit. Remainder of exam is unremarkable. Emergency Department Course and Treatment: Blood cultures were sent. Patient was given IV fluids, meropenem. Influenza is negative. Lactic acid is normal. Urinalysis unremarkable. Chest x-ray shows no acute process. CBC shows white count 1.0, 0% neutrophils. Chemistries unremarkable. Discussed with the hospitalist for admission. Disposition: Admission Impression: Neutropenic fever This note was generated with [employer] dictation software. It may contain incorrect words, spelling, and punctuation that were not noted in review of the chart prior to signing ED Disposition - Plan for ED Patient: Referrals: Temi Santos [Primary Care Provider] -
[2018-08-22] MEDS: 0.9% Normal Saline 1,000 ML 999 ML IV (16:12)
[2018-08-22 16:31] LABS: Lactic Acid 1.2 mmol/L (0.4-2.0)
[2018-08-22 16:59] LABS: Bacteria 0 SEEN /hpf (None Seen); Mucous, Urine 0 SEEN /hpf (<or=2+); Red Blood Cells-Urine 0 SEEN /hpf (0-5); Squamous Epithelial Cells - UA 0 SEEN /hpf (5-10); White Blood Cells 0 SEEN /hpf (0-5)
[2018-08-22 17:00] VITALS: BP 119/60; PULSE 84; RESP 16
[2018-08-22 17:06] LABS: Color, Urine Yellow (Yellow); Glucose, Dipstick Normal (Normal); Ketone-Dipstick Negative (Negative); Leukocyte Esterase-Dipstick Negative /ul (Negative); Nitrite-Dipstick Negative (Negative); Occult Blood-Urine Negative /ul (Negative); Protein-Dipstick Negative (Negative); Specific Gravity, Urine 1.015 (1.002-1.030); Urine Bilirubin Dipstick Negative (Negative); Urine Clarity Clear (Clear); Urine Urobilinogen Normal (Normal)
--- NOTE | 2018-08-22 17:25 | CASEMGMT ---
RN CM Assessment Introduced role of RN CM to patient, sister/family at bedside. Patient is alert, oriented and able to participate in RN CM Assessment. Care providers, pharmacy, and demographics verified. Presentation: H/o Stage 1 Breast CA, on Second round Chemo, last Chemo 08/16, Sent by [facility] for possible Neutropenia. Was admitted after 1st Round Chemo with Neutropenic Fever. PCP: Dr Temi Santos Specialists: Onc- Dr Kelly Preferred Pharmacy: [facility] Insurance: [employer] Commercial, Medicare A&B Prescription Benefit: Yes LNOK: Polo Holloway LW/HPOA: No, refused offered info/services. Living Arrangements: Lives alone in Home, Independent with ambulation and ADL's. Transportation: Patient drives, unsure at this time who will transport on DC. Patient appears short with conversation. Sister at bedside lives over 100 miles away and happened to drive here to visit patient unknowing of patient needing to go to hospital. Voiced lack of support system. DME: None HHC: None SNF: None DC PLAN: Home with no anticipated needs. SW to follow as needed for if Transportation issue/need arises. Tonja Posey RNCM
--- NOTE | 2018-08-22 18:07 | PCM.HP.STD ---
<Anyi Connor - Last Filed: 08/22/18 18:51> Problem List (1) Educational circumstance Status: Chronic (2) Febrile neutropenia Status: Acute (3) Oral candidiasis Status: Acute (4) Diarrhea Status: Acute (5) Hx of right mastectomy Status: Chronic Comment: 06/08/18 (6) Breast cancer, right Status: Chronic Comment: High risk for recurrence by Oncotype DX (7) History of repair of right rotator cuff Status: Chronic (8) MVP (mitral valve prolapse) Status: Chronic (9) HTN (hypertension) Status: Chronic (10) Hypothyroidism Status: Chronic (11) GERD (gastroesophageal reflux disease) Status: Chronic (12) History of eye surgery Status: Chronic (13) History of back surgery Status: Chronic (14) History of cholecystectomy Status: Chronic (15) Hemorrhoids Status: Chronic (16) Cardiac murmur Status: Chronic (17) Breast cancer Status: Chronic History of Present Illness Date of Admission: 08/22/18 Chief Complaint: Fever, neutropenia, diarrhea. The patient is a 73 year old F who presents to emergency room from oncology office due to fever. She is currently undergoing chemotherapy for breast cancer. Her second cycle of chemotherapy was 08/16/2018 followed by Quan on day 2. She reports fever at home the last 2 days, T-max 100.8. Denies nausea, vomiting. Reports diarrhea. She does complain of mild shortness of breath and mild throat irritation. Denies other URI sx. She had similar symptoms following first round of chemotherapy and was admitted to [facility] at that time. She was discharged from [place] with augmentin and levaquin. Her past medical history includes breast cancer status post right mastectomy currently undergoing chemotherapy, hypertension, hypothyroidism, GERD, mitral valve prolapse. Past Medical History Past Medical History (Chronic Problems): Chronic Problems (Last Reviewed 08/22/18 @ 14:11 by Pamela Nooyla) Educational circumstance (Chronic) Hx of right mastectomy (Chronic) 06/08/18 Breast cancer, right (Chronic) High risk for recurrence by Oncotype DX History of repair of right rotator cuff (Chronic) MVP (mitral valve prolapse) (Chronic) HTN (hypertension) (Chronic) Hypothyroidism (Chronic) GERD (gastroesophageal reflux disease) (Chronic) History of eye surgery (Chronic) History of back surgery (Chronic) History of cholecystectomy (Chronic) Hemorrhoids (Chronic) Cardiac murmur (Chronic) Breast cancer (Chronic ~04/2018) Medical History: Medical History (Last Reviewed 08/22/18 @ 14:11 by Pamela Noyola) Breast cancer, right (Chronic) C50.911 High risk for recurrence by Oncotype DX MVP (mitral valve prolapse) (Chronic) I34.1 HTN (hypertension) (Chronic) I10 Hypothyroidism (Chronic) E03.9 GERD (gastroesophageal reflux disease) (Chronic) K21.9 Hemorrhoids (Chronic) K64.9 Cardiac murmur (Chronic) R01.1 Breast cancer (Chronic) Onset Date: ~04/2018 C50.919 PORT PLACEMENT 07-19-18 Allergies aspirin [ASA] Allergy (Severe, Verified 08/22/18 15:01) respiratory distress adhesive tape Adverse Reaction (Intermediate, Verified 08/22/18 15:01) Rash meperidine [From Demerol] Adverse Reaction (Intermediate, Verified 08/22/18 15:01) GI upset morphine Adverse Reaction (Mild, Verified 08/22/18 15:01) GI upset Home Medications: Ambulatory Orders Medication Instructions Recorded pantoprazole 40 mg tablet,delayed 40 mg PO QHS 05/22/18 release Glucosam/MSM/Chondroit/Vit D3 [Sv 1 tab PO BID 05/26/18 Glucosamine Chondroitin Tab] Red Yeast Rice 1,200 mg PO BID 05/26/18 Calcium Carbonate/Vitamin D3 1 ea PO DAILY 07/11/18 [Calcium 600 + Vit D Tablet] Cyanocobalamin [Vitamin B12] 1,000 mcg PO DAILY@0800 07/13/18 Lidocaine/Prilocaine 1 applicatio TP DAILY PRN PRN 30 07/19/18 [Lidocaine-Prilocaine Cream] Days #1 tube Levothyroxine Sodium [Synthroid] 50 mcg PO DAILY 08/22/18 Levothyroxine [Synthroid] 75 mcg PO STANLEY 08/22/18 Metoprolol Succinate [Toprol Xl] 12.5 mg PO DAILY 08/22/18 [place]-3 Fatty Acids/Fish Oil 1 each PO DAILY 08/22/18 [[place] 3 1,000 mg Softgel] Surgical History: Surgical History (Last Reviewed 08/22/18 @ 18:10 by GOYO Garcia) Hx of right mastectomy (Chronic) Z90.11 06/08/18 History of repair of right rotator cuff (Chronic) Z98.890 History of eye surgery (Chronic) Z98.890 History of back surgery (Chronic) Z98.890 History of cholecystectomy (Chronic) Z90.49 Surgical History: - - Right axillary lymph node biopsy, port placement Psychiatric History: No pertinent psych hx 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 Denies: Chills, Weight Change HEENT: Reports: - - Mild throat irritation. Denies: Head Aches, Sinus Congestion, Sinus Drainage Cardiovascular: Denies: Chest Pain, Palpitations Respiratory: Reports: Shortness of Breath. Denies: Cough, Sputum production Gastrointestinal: Reports: Diarrhea. Denies: Abdominal Pain, Nausea, Vomiting Genitourinary: Denies: Dysuria Musculoskeletal: Denies: Joint Pain, Joint Tenderness Skin: Denies: Rash, Wounds Neurological: Denies: Numbness, Tingling, Focal weakness Psychiatric: Denies: Anxiety, Depression, Homicidal Ideations, Suicidal Ideations Hematologic/ Lymphatic: Denies: Easy Bruising, Easy Bleeding VTE Information - Inpt Only VTE Present on Admission: No VTE Mechan Device Prophylaxis: None VTE Pharm Prophylaxis ordered?: Yes Patient Problems: Active and Suspected Problems (Last Reviewed 08/22/18 @ 14:11 by Pamela Noyola) Febrile neutropenia (Acute) Oral candidiasis (Acute) Diarrhea (Acute) - Physical Exam General: Alert, Oriented x3, Cooperative HEENT: Atraumatic, PERRLA, EOMI, Normocephalic Oral: - - Oral thrush present Neck: Supple, No JVD, Negative Carotid Bruits Lungs: Clear to auscultation, Diminished, - - Right chest port Cardiovascular: Regular rate, Regular Rhythm, Normal S1, Normal S2, No murmurs Abdomen: Bowel Sounds Present, Soft, Non Tender, Non-Distended Extremities: No clubbing, No cyanosis, No edema, Capillary Refill Less than 3 Seconds Skin: No rashes, No breakdown Musculoskeletal: No Tenderness to Palpation of Joints or Extremities Neurological: Cranial nerves II-XII grossly intact, Neuro grossly intact Psych/Mental Status: Normal Affect, Appropriate Vital Signs Temp Pulse Resp BP Pulse Ox 99.0 F 84 16 119/60 95 08/22/18 15:01 08/22/18 17:00 08/22/18 17:00 08/22/18 17:00 08/22/18 15:01 Oxygen Delivery Method Room Air Weight: 140 lb Body Mass Index (BMI) 26.4 Microbiology Past 72 Hours 08/22/18 16:00 Influenza Types A,B Direct FA (BRINA) - Final Mucosa - Nasopharyngeal Laboratory Tests Past 24 Hrs 08/22/18 08/22/18 16:00 16:51 Lactic Acid 1.2 Urine Color Yellow Urine Clarity Clear Urine pH 6.0 Ur Specific [place] 1.015 Urine Protein Negative Urine Glucose (UA) Normal Urine Ketones Negative Urine Occult Blood Negative Urine Nitrite Negative Urine Bilirubin Negative Urine Urobilinogen Normal Ur Leukocyte Esterase Negative Urine RBC 0 SEEN Urine WBC 0 SEEN Ur Squamous Epith Cells 0 SEEN Urine Bacteria 0 SEEN Urine Mucus 0 SEEN Assessment/Plan All Active Problems (Last Reviewed 08/22/18 @ 14:11 by Pamela Noyola) Febrile neutropenia (Acute) Oral candidiasis (Acute) Diarrhea (Acute) 1. Neutropenic fever- case discussed with oncology. IV cefepime. She had recent Neulasta injection following chemotherapy. Tylenol PRN for fever. Negative for influenza. Blood cx pending. Trend cbc. 2. Oral Candidiasis-nystatin swish and swallow 4 times daily. 3. Diarrhea-suspect secondary to chemotherapy regimen given patient reports diarrhea with previous chemotherapy as well. However given neutropenic fever, check stool for c.diff and enteric pathogen. 4. 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 Follows with Dr. Kelly. 5. Hypertension- stable, continue home metoprolol. 6. Hypothyroidism- continue synthroid regimen. 7. GERD- continue PPI. DVT prophylaxis-Lovenox sc This patient was seen by GOYO Garcia under the supervision of Dr. Underwood. <Harshil Underwood F - Last Filed: 08/22/18 19:26> History of Present Illness The patient is a 73 year old F [] Past Medical History Medical History: Medical History (Last Reviewed 08/22/18 @ 14:11 by Pamela Noyola) Breast cancer, right (Chronic) C50.911 High risk for recurrence by Oncotype DX MVP (mitral valve prolapse) (Chronic) I34.1 HTN (hypertension) (Chronic) I10 Hypothyroidism (Chronic) E03.9 GERD (gastroesophageal reflux disease) (Chronic) K21.9 Hemorrhoids (Chronic) K64.9 Cardiac murmur (Chronic) R01.1 Breast cancer (Chronic) Onset Date: ~04/2018 C50.919 PORT PLACEMENT 07-19-18 Allergies aspirin [ASA] Allergy (Severe, Verified 08/22/18 15:01) respiratory distress adhesive tape Adverse Reaction (Intermediate, Verified 08/22/18 15:01) Rash meperidine [From Demerol] Adverse Reaction (Intermediate, Verified 08/22/18 15:01) GI upset morphine Adverse Reaction (Mild, Verified 08/22/18 15:01) GI upset Surgical History: Surgical History (Last Reviewed 08/22/18 @ 18:10 by GOYO Garcia) Hx of right mastectomy (Chronic) Z90.11 06/08/18 History of repair of right rotator cuff (Chronic) Z98.890 History of eye surgery (Chronic) Z98.890 History of back surgery (Chronic) Z98.890 History of cholecystectomy (Chronic) Z90.49 - *Family History Maternal Family History: Family History (Last Reviewed 08/22/18 @ 18:38 by GOYO Garcia) Mother Breast cancer Sister Cancer Father Heart disease Paternal Family History: Family History (Last Reviewed 08/22/18 @ 18:38 by GOYO Garcia) Mother Breast cancer Sister Cancer Father Heart disease - Physical Exam Vital Signs Temp Pulse Resp BP Pulse Ox 99.0 F 84 16 119/60 95 08/22/18 15:01 08/22/18 17:00 08/22/18 17:00 08/22/18 17:00 08/22/18 15:01 Oxygen Delivery Method Room Air Weight: 138 lb 8 oz Body Mass Index (BMI) 26.2 Microbiology Past 72 Hours 08/22/18 16:00 Influenza Types A,B Direct FA (BRINA) - Final Mucosa - Nasopharyngeal Laboratory Tests Past 24 Hrs 08/22/18 08/22/18 16:00 16:51 Lactic Acid 1.2 Urine Color Yellow Urine Clarity Clear Urine pH 6.0 Ur Specific [place] 1.015 Urine Protein Negative Urine Glucose (UA) Normal Urine Ketones Negative Urine Occult Blood Negative Urine Nitrite Negative Urine Bilirubin Negative Urine Urobilinogen Normal Ur Leukocyte Esterase Negative Urine RBC 0 SEEN Urine WBC 0 SEEN Ur Squamous Epith Cells 0 SEEN Urine Bacteria 0 SEEN Urine Mucus 0 SEEN Code Visit Addendum: Dr. Underwood I personally examined the patient and reviewed the chart. I agree with the above. 73-year-old female with a history of stage I breast cancer status post right mastectomy and is currently undergoing chemotherapy. She received her first dose and had fevers and neutropenia about 5 days after and she went to [facility]. At that time she was hospitalized for a couple of days and then discharged home on a week's worth of Augmentin and likely Cipro. She does not recall if she had any positive cultures at that hospital. She had her second round of chemotherapy on August 16 and the next day had a dose of Neulasta. She presents to the clinic with a fever and neutropenia for the last day. We will start cefepime 2 g 3 times daily and she has had a blood culture obtained in the ER. Will obtain a C. difficile as well for her diarrhea though it is likely related to her chemotherapy. Hopefully if cultures are negative she can be discharged on Augmentin and Cipro as an outpatient in the next couple of days. Inpatient E&M: [id number] [facility] L3
--- NOTE | 2018-08-22 18:13 | HP.PCM_ITS ---
<Anyi Connor - Last Filed: 08/22/18 18:51> Problem List (1) Educational circumstance Status: Chronic (2) Febrile neutropenia Status: Acute (3) Oral candidiasis Status: Acute (4) Diarrhea Status: Acute (5) Hx of right mastectomy Status: Chronic Comment: 06/08/18 (6) Breast cancer, right Status: Chronic Comment: High risk for recurrence by Oncotype DX (7) History of repair of right rotator cuff Status: Chronic (8) MVP (mitral valve prolapse) Status: Chronic (9) HTN (hypertension) Status: Chronic (10) Hypothyroidism Status: Chronic (11) GERD (gastroesophageal reflux disease) Status: Chronic (12) History of eye surgery Status: Chronic (13) History of back surgery Status: Chronic (14) History of cholecystectomy Status: Chronic (15) Hemorrhoids Status: Chronic (16) Cardiac murmur Status: Chronic (17) Breast cancer Status: Chronic History of Present Illness Date of Admission: 08/22/18 Chief Complaint: Fever, neutropenia, diarrhea. The patient is a 73 year old F who presents to emergency room from oncology office due to fever. She is currently undergoing chemotherapy for breast cancer. Her second cycle of chemotherapy was 08/16/2018 followed by Quan on day 2. She reports fever at home the last 2 days, T-max 100.8. Denies nausea, vomiting. Reports diarrhea. She does complain of mild shortness of breath and mild throat irritation. Denies other URI sx. She had similar symptoms following first round of chemotherapy and was admitted to [facility] at that time. She was discharged from [place] with augmentin and levaquin. Her past medical history includes breast cancer status post right mastectomy currently undergoing chemotherapy, hypertension, hypothyroidism, GERD, mitral valve prolapse. Past Medical History Past Medical History (Chronic Problems): Chronic Problems (Last Reviewed 08/22/18 @ 14:11 by Pamela Noyola) Educational circumstance (Chronic) Hx of right mastectomy (Chronic) 06/08/18 Breast cancer, right (Chronic) High risk for recurrence by Oncotype DX History of repair of right rotator cuff (Chronic) MVP (mitral valve prolapse) (Chronic) HTN (hypertension) (Chronic) Hypothyroidism (Chronic) GERD (gastroesophageal reflux disease) (Chronic) History of eye surgery (Chronic) History of back surgery (Chronic) History of cholecystectomy (Chronic) Hemorrhoids (Chronic) Cardiac murmur (Chronic) Breast cancer (Chronic ~04/2018) Medical History: Medical History (Last Reviewed 08/22/18 @ 14:11 by Pamela Noyola) Breast cancer, right (Chronic) C50.911 High risk for recurrence by Oncotype DX MVP (mitral valve prolapse) (Chronic) I34.1 HTN (hypertension) (Chronic) I10 Hypothyroidism (Chronic) E03.9 GERD (gastroesophageal reflux disease) (Chronic) K21.9 Hemorrhoids (Chronic) K64.9 Cardiac murmur (Chronic) R01.1 Breast cancer (Chronic) Onset Date: ~04/2018 C50.919 PORT PLACEMENT 07-19-18 Allergies aspirin [ASA] Allergy (Severe, Verified 08/22/18 15:01) respiratory distress adhesive tape Adverse Reaction (Intermediate, Verified 08/22/18 15:01) Rash meperidine [From Demerol] Adverse Reaction (Intermediate, Verified 08/22/18 15:01) GI upset morphine Adverse Reaction (Mild, Verified 08/22/18 15:01) GI upset Home Medications: Ambulatory Orders Medication Instructions Recorded pantoprazole 40 mg tablet,delayed 40 mg PO QHS 05/22/18 release Glucosam/MSM/Chondroit/Vit D3 [Sv 1 tab PO BID 05/26/18 Glucosamine Chondroitin Tab] Red Yeast Rice 1,200 mg PO BID 05/26/18 Calcium Carbonate/Vitamin D3 1 ea PO DAILY 07/11/18 [Calcium 600 + Vit D Tablet] Cyanocobalamin [Vitamin B12] 1,000 mcg PO DAILY@0800 07/13/18 Lidocaine/Prilocaine 1 applicatio TP DAILY PRN PRN 30 07/19/18 [Lidocaine-Prilocaine Cream] Days #1 tube Levothyroxine Sodium [Synthroid] 50 mcg PO DAILY 08/22/18 Levothyroxine [Synthroid] 75 mcg PO STANLEY 08/22/18 Metoprolol Succinate [Toprol Xl] 12.5 mg PO DAILY 08/22/18 [place]-3 Fatty Acids/Fish Oil 1 each PO DAILY 08/22/18 [[place] 3 1,000 mg Softgel] Surgical History: Surgical History (Last Reviewed 08/22/18 @ 18:10 by GOYO Garcia) Hx of right mastectomy (Chronic) Z90.11 06/08/18 History of repair of right rotator cuff (Chronic) Z98.890 History of eye surgery (Chronic) Z98.890 History of back surgery (Chronic) Z98.890 History of cholecystectomy (Chronic) Z90.49 Surgical History: - - Right axillary lymph node biopsy, port placement 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 Denies: Chills, Weight Change HEENT: Reports: - - Mild throat irritation. Denies: Head Aches, Sinus Congestion, Sinus Drainage Cardiovascular: Denies: Chest Pain, Palpitations Respiratory: Reports: Shortness of Breath. Denies: Cough, Sputum production Gastrointestinal: Reports: Diarrhea. Denies: Abdominal Pain, Nausea, Vomiting Genitourinary: Denies: Dysuria Musculoskeletal: Denies: Joint Pain, Joint Tenderness Skin: Denies: Rash, Wounds Neurological: Denies: Numbness, Tingling, Focal weakness Psychiatric: Denies: Anxiety, Depression, Homicidal Ideations, Suicidal Ideations Hematologic/ Lymphatic: Denies: Easy Bruising, Easy Bleeding VTE Information - Inpt Only VTE Present on Admission: No VTE Mechan Device Prophylaxis: None VTE Pharm Prophylaxis ordered?: Yes Patient Problems: Active and Suspected Problems (Last Reviewed 08/22/18 @ 14:11 by Pamela Noyola) Febrile neutropenia (Acute) Oral candidiasis (Acute) Diarrhea (Acute) - Physical Exam General: Alert, Oriented x3, Cooperative HEENT: Atraumatic, PERRLA, EOMI, Normocephalic Oral: - - Oral thrush present Neck: Supple, No JVD, Negative Carotid Bruits Lungs: Clear to auscultation, Diminished, - - Right chest port Cardiovascular: Regular rate, Regular Rhythm, Normal S1, Normal S2, No murmurs Abdomen: Bowel Sounds Present, Soft, Non Tender, Non-Distended Extremities: No clubbing, No cyanosis, No edema, Capillary Refill Less than 3 Seconds Skin: No rashes, No breakdown Musculoskeletal: No Tenderness to Palpation of Joints or Extremities Neurological: Cranial nerves II-XII grossly intact, Neuro grossly intact Psych/Mental Status: Normal Affect, Appropriate Vital Signs Temp Pulse Resp BP Pulse Ox 99.0 F 84 16 119/60 95 08/22/18 15:01 08/22/18 17:00 08/22/18 17:00 08/22/18 17:00 08/22/18 15:01 Oxygen Delivery Method Room Air Weight: 140 lb Body Mass Index (BMI) 26.4 Microbiology Past 72 Hours 08/22/18 16:00 Influenza Types A,B Direct FA (BRINA) - Final Mucosa - Nasopharyngeal Laboratory Tests Past 24 Hrs 08/22/18 08/22/18 16:00 16:51 Lactic Acid 1.2 Urine Color Yellow Urine Clarity Clear Urine pH 6.0 Ur Specific [place] 1.015 Urine Protein Negative Urine Glucose (UA) Normal Urine Ketones Negative Urine Occult Blood Negative Urine Nitrite Negative Urine Bilirubin Negative Urine Urobilinogen Normal Ur Leukocyte Esterase Negative Urine RBC 0 SEEN Urine WBC 0 SEEN Ur Squamous Epith Cells 0 SEEN Urine Bacteria 0 SEEN Urine Mucus 0 SEEN Assessment/Plan All Active Problems (Last Reviewed 08/22/18 @ 14:11 by Pamela Noyola) Febrile neutropenia (Acute) Oral candidiasis (Acute) Diarrhea (Acute) 1. Neutropenic fever- case discussed with oncology. IV cefepime. She had recent Neulasta injection following chemotherapy. Tylenol PRN for fever. Negative for influenza. Blood cx pending. Trend cbc. 2. Oral Candidiasis-nystatin swish and swallow 4 times daily. 3. Diarrhea-suspect secondary to chemotherapy regimen given patient reports diarrhea with previous chemotherapy as well. However given neutropenic fever, check stool for c.diff and enteric pathogen. 4. 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 Follows with Dr. Kelly. 5. Hypertension- stable, continue home metoprolol. 6. Hypothyroidism- continue synthroid regimen. 7. GERD- continue PPI. DVT prophylaxis-Lovenox sc This patient was seen by GOYO Garcia under the supervision of Dr. Underwood. <Harshil Underwood F - Last Filed: 08/22/18 19:26> History of Present Illness The patient is a 73 year old F [] Past Medical History Medical History: Medical History (Last Reviewed 08/22/18 @ 14:11 by Pamela Noyola) Breast cancer, right (Chronic) C50.911 High risk for recurrence by Oncotype DX MVP (mitral valve prolapse) (Chronic) I34.1 HTN (hypertension) (Chronic) I10 Hypothyroidism (Chronic) E03.9 GERD (gastroesophageal reflux disease) (Chronic) K21.9 Hemorrhoids (Chronic) K64.9 Cardiac murmur (Chronic) R01.1 Breast cancer (Chronic) Onset Date: ~04/2018 C50.919 PORT PLACEMENT 07-19-18 Allergies aspirin [ASA] Allergy (Severe, Verified 08/22/18 15:01) respiratory distress adhesive tape Adverse Reaction (Intermediate, Verified 08/22/18 15:01) Rash meperidine [From Demerol] Adverse Reaction (Intermediate, Verified 08/22/18 15:01) GI upset morphine Adverse Reaction (Mild, Verified 08/22/18 15:01) GI upset Surgical History: Surgical History (Last Reviewed 08/22/18 @ 18:10 by GOYO Garcia) Hx of right mastectomy (Chronic) Z90.11 06/08/18 History of repair of right rotator cuff (Chronic) Z98.890 History of eye surgery (Chronic) Z98.890 History of back surgery (Chronic) Z98.890 History of cholecystectomy (Chronic) Z90.49 - *Family History Maternal Family History: Family History (Last Reviewed 08/22/18 @ 18:38 by GOYO Garcia) Mother Breast cancer Sister Cancer Father Heart disease Paternal Family History: Family History (Last Reviewed 08/22/18 @ 18:38 by GOYO Garcia) Mother Breast cancer Sister Cancer Father Heart disease - Physical Exam Vital Signs Temp Pulse Resp BP Pulse Ox 99.0 F 84 16 119/60 95 08/22/18 15:01 08/22/18 17:00 08/22/18 17:00 08/22/18 17:00 08/22/18 15:01 Oxygen Delivery Method Room Air Weight: 138 lb 8 oz Body Mass Index (BMI) 26.2 Microbiology Past 72 Hours 08/22/18 16:00 Influenza Types A,B Direct FA (BRINA) - Final Mucosa - Nasopharyngeal Laboratory Tests Past 24 Hrs 08/22/18 08/22/18 16:00 16:51 Lactic Acid 1.2 Urine Color Yellow Urine Clarity Clear Urine pH 6.0 Ur Specific [place] 1.015 Urine Protein Negative Urine Glucose (UA) Normal Urine Ketones Negative Urine Occult Blood Negative Urine Nitrite Negative Urine Bilirubin Negative Urine Urobilinogen Normal Ur Leukocyte Esterase Negative Urine RBC 0 SEEN Urine WBC 0 SEEN Ur Squamous Epith Cells 0 SEEN Urine Bacteria 0 SEEN Urine Mucus 0 SEEN Code Visit Addendum: Dr. Underwood I personally examined the patient and reviewed the chart. I agree with the above. 73-year-old female with a history of stage I breast cancer status post right mastectomy and is currently undergoing chemotherapy. She received her first dose and had fevers and neutropenia about 5 days after and she went to [facility]. At that time she was hospitalized for a couple of days and then discharged home on a week's worth of Augmentin and likely Cipro. She does not recall if she had any positive cultures at that hospital. She had her second round of chemotherapy on August 16 and the next day had a dose of Neulasta. She presents to the clinic with a fever and neutropenia for the last day. We will start cefepime 2 g 3 times daily and she has had a blood culture obtained in the ER. Will obtain a C. difficile as well for her diarrhea though it is likely related to her chemotherapy. Hopefully if cultures are negative she can be discharged on Augmentin and Cipro as an outpatient in the next couple of days. Inpatient E&M: [id number] [facility] L3
[2018-08-22 19:02] VITALS: BMI 26.2
[2018-08-22 19:05] VITALS: BP 132/52; PULSE 86; RESP 16; TEMP 37.3; O2SAT 95
[2018-08-22 19:06] VITALS: BMI 26.2
[2018-08-22] MEDS: 0.9% Normal Saline 1,000 ML 100 ML IV (20:12)
[2018-08-22 20:31] VITALS: BP 116/61; PULSE 90; RESP 18; TEMP 37.1; O2SAT 95
[2018-08-22] MEDS: Pantoprazole Sodium 40 MG Tablet PO (21:46)
[2018-08-22] MEDS: NYSTATIN 500,000 UNIT/5 ML UDC 500000 UNIT PO (21:47)
[2018-08-22 22:27] VITALS: BP 139/66; PULSE 95; RESP 18; TEMP 37.2; O2SAT 96
[2018-08-23 01:39] VITALS: BP 117/50; PULSE 100; RESP 16; TEMP 37.4; O2SAT 94
[2018-08-23] MEDS: 0.9% Normal Saline 1,000 ML 100 ML IV ×2 (05:08→15:02)
[2018-08-23] MEDS: Levothyroxine 50 MCG Tablet PO (05:09)
[2018-08-23 06:25] LABS: Absolute Lymphocyte Count 0.96 X10^3/ul (0.83-4.51); Absolute Neutrophil Count 0.3 X10^3/uL (2.0-7.7); Basophil# 0.12 X10^3/uL; Basophil% 4.7 % (0-1); Eosinophil# 0.15 X10^3/uL; Eosinophils% 5.8 % (0-5); Hematocrit 32.8 % (37-47); Hemoglobin 10.6 g/dl (12.0-15.0); Lymphocyte # 0.96 X10^3/ul (4.0); Lymphocyte % 37.4 % (19-41); Mean Corp Hgb Conc 32.3 g/gl (32-36); Mean Corpuscular Hgb 30.6 pg (27.0-32.0); Mean Corpuscular Volume 94.8 fL (81-99); Mean Platelet Vol. 11.1 fl (6.2-12.0); Monocyte# 1.05 X10^3/uL; Monocyte% 40.9 % (0-10); Neutrophil # 0.26 X10^3/uL (2.7-7.7); Platelet Count 155 K/mm3 (150-450); RBC Distribution Width CV 13.7 % (11.6-14.6); RBC Distribution Width SD 46.9 fl (35.1-43.9); Red Blood Count 3.46 M/mm3 (4.2-5.4); White Blood Count 2.6 K/mm3 (4.4-11.0)
[2018-08-23 06:26] LABS: Differential Indicated SCAN CRITERIA MET; POSITIVE COUNT NO; POSITIVE DIFFERENTIAL YES; POSITIVE MORPHOLOGY YES
[2018-08-23 06:43] LABS: Anion Gap 8 (5-15); BUN 10 mg/dL (7-18); BUN/Creat Ratio 13.2 RATIO (10-20); Calcium,Total 8.4 mg/dL (8.5-10.1); Chloride 106 mmol/L (98-107); Creatinine, Serum 0.76 mg/dL (0.55-1.02); EST Glomerular Filtration Rate 79 mL/min (>60); Est Glom Filt Rate - Afr Amer 96 mL/min (>60); Estimated Creatinine Clearance 37.24 ml/min; Glucose 94 mg/dL (74-106); Potassium 4.3 mmol/L (3.5-5.1); Sodium Level 139 mmol/L (136-145)
[2018-08-23 08:51] VITALS: BP 123/59; PULSE 95; RESP 18; TEMP 37.3; O2SAT 94
[2018-08-23 08:56] VITALS: PULSE 95
[2018-08-23] MEDS: Enoxaparin 40 MG/0.4 ML Syringe SC (08:56)
[2018-08-23] MEDS: Metoprolol(XL)Succ 25 MG Tablet 12.5 MG PO (08:56)
[2018-08-23] MEDS: NYSTATIN 500,000 UNIT/5 ML UDC 500000 UNIT PO ×4 (10:49→22:32)
--- NOTE | 2018-08-23 11:14 | ONC.CONS.INP ---
Subjective Date of Service:: 08/23/18 Chief Complaint: Neutropenic Fever History of Present Illness: Ms. 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 ER positive (>95%), OK positive (10%), HER2/mirella not amplified. Status post right mastectomy with sentinel lymph node biopsy and an adequate resection margin June 2018. Given Oncotype DX score of 32 indicating a high recurrence risk, commenced with cycle 1 of adjuvant chemotherapy with Taxotere/Cytoxan on 07/25/18, supported with G CSF on day 2. Despite growth factor support, developed fever and was admitted to [facility] for management of febrile neutropenia and pneumonia. Received cycle 2 Taxotere/Cytoxan on 08/16/18, Neulasta administered on 08/17/18. Patient developed fever on 08/19/18 and self administered Tylenol x 4 days. Made oncology aware of fevers 08/22/18, immediately evaluated in clinic. C/o nausea, diarrhea (> 10 episodes on 08/22/18) Found to be severely neutropenic (grade 4) and subsequently sent through [facility] ED for admission. CXR showed no evidence of pneumonia, UA unremarkable and influenza negative. Normotensive, although slightly tachycardic when she was seen in clinic. Lactic acid WNL. Presently patient is receiving broad spectrum atb therapy and supportive care with IVFs and antiemetics. C diff negative, enteric pathogen stool ordered. Blood cultures pending. Upon entering the room, patient laying flat in bed in no distress. States diarrhea has improved, no longer describing as jelly-like. Abd cramping prior to BMs continues. Estimates 4 loose BMs since admission. Nausea controlled with Zofran, has not resulted in any episodes of emesis. Was able to eat a small amount of breakfast and taking sips. Past Medical History: Chronic Problems (Last Reviewed 08/22/18 @ 14:11 by Pamela Noyola) Hx of right mastectomy (Chronic) 06/08/18 Breast cancer, right (Chronic) High risk for recurrence by Oncotype DX History of repair of right rotator cuff (Chronic) MVP (mitral valve prolapse) (Chronic) HTN (hypertension) (Chronic) Hypothyroidism (Chronic) GERD (gastroesophageal reflux disease) (Chronic) History of eye surgery (Chronic) History of back surgery (Chronic) History of cholecystectomy (Chronic) Hemorrhoids (Chronic) Cardiac murmur (Chronic) Breast cancer (Chronic ~04/2018) Past Medical/Surgical History: Past Medical History - Most Recent Inpatient Visit Past Medical History Start: 08/22/18 18:31 Text: Status: Complete Freq: ONCE Protocol: Document 08/22/18 19:06 [facility] [place] (Rec: 08/22/18 19:09 [facility] [place] [id number]) BMI Required to complete PMH What is Patient's BMI 26.2 Past Medical History Unable History Recalled No Query Text:Pt Unable/Family Not Present Neurologic Medical History Hx Stroke/TIA No Hx Dementia/Alzheimer's No Hx Parkinson's Disease No Hx Seizures No Hx Multiple Sclerosis No Hx Migraines Yes: occular migraine Cardiac Medical History VTE Present on Admission No Hx of Deep Vein Thrombosis/VTE/PE No Hx Hypertension No Hx Chest Pain/Angina No Hx Heart Attack No Hx Cardiac Surgery/Stents/Etc. No Hx Heart Failure No Hx Pacemaker/AICD No Hx Irregular Heartbeat and/or Afib No: mvp/tachycardia Hx Anticoagulant Therapy No Query Text:(Coumadin, Aspirin, Plavix, Xarelto, etc.) Hx Pain in Legs when Walking/Leg Cramps Yes: occ cramps Respiratory Medical History Hx COPD No Hx Emphysema No Hx Smoking No Smoking Status Never smoker Hx Tobacco Use in last 12 months No Hx Sleep Apnea No Do you snore loudly (louder than talking No or can be heard through closed doors)? Do you often feel tired/ fatigued/ No sleepy during daytime? Has anyone observed you stop breathing No during sleep? STOP Results Negative GI Medical History Hx Ulcer No: small hiatal hernia Hx Hepatitis No Hx Cirrhosis No Hx GI Bleed No Hx Unplanned Weight Loss Yes Genitourinary Medical History Indwelling Catheter in Place on Arrival/ No Admission Hx Renal Disease No: BLADDER LEAKAGE Hx Dialysis No Musculoskeletal History Hx Arthritis Yes: polymyalgia rhematica Hx Rheumatoid Arthritis No Endocrine Medical History Hx Diabetes No Hx Thyroid Disease Yes: on med Hematologic Medical History Hx of Blood Transfusion No Hx of Transfusion in last 3 Months No Ever experience any problems with No transfusion(s)? Hx of Preganancy in last 3 Months No Nurse Filling Out Transfusion & SGESSEL Questions: Date: 08/22/18 Time: 19:09 Psycho/Social Medical History Hx Depression No Hx Anxiety No Hx Behavior Disorder No Hx Alcohol Use No Hx Substance Use No Other Medical History Hx Blood Disorders No Hx Anemia No Hx Cancer Yes: breast/MASTECTOMY-right 2018 Hx Drug Resistant Organism No Wound/Pressure Injury Present on Arrival No /Admission Query Text:If yes, chart assessment in Shift/Clinical Findings Central Line/PICC/VAD Present on Arrival Yes /Admission Antibiotics within last 7 days? No Comments left sided chest port-last chemo 08-16-18 Risk for Readmission Number of Risk Factors 5 At Risk for Readmission Patient is At Risk For Readmission Patient is eligible for Call Back Y Past Medical History (Last Reviewed 08/22/18 @ 14:11 by Pamela Noyola) Breast cancer, right (Chronic) MVP (mitral valve prolapse) (Chronic) HTN (hypertension) (Chronic) Hypothyroidism (Chronic) GERD (gastroesophageal reflux disease) (Chronic) Hemorrhoids (Chronic) Cardiac murmur (Chronic) Breast cancer (Chronic ~04/2018) PORT PLACEMENT (Acute) Past Surgical History (Last Reviewed 08/22/18 @ 18:10 by GOYO Garcia) Hx of right mastectomy (Chronic) History of repair of right rotator cuff (Chronic) History of eye surgery (Chronic) History of back surgery (Chronic) History of cholecystectomy (Chronic) Maternal Family History: Family History (Last Reviewed 08/22/18 @ 18:38 by GOYO Garcia) Mother Breast cancer Sister Cancer Father Heart disease Paternal Family History: Family History (Last Reviewed 08/22/18 @ 18:38 by GOYO Garcia) Mother Breast cancer Sister Cancer Father Heart disease - Social History Lives: With Family Smoking Status: Never smoker Alcohol: None Drugs: None Allergies/Adverse Reactions: Allergy/AdvReac Type Severity Reaction Status Date / Time aspirin [ASA] Allergy Severe respiratory Verified 08/22/18 15:01 distress adhesive tape AdvReac Intermediate Rash Verified 08/22/18 15:01 meperidine [From Demerol] AdvReac Intermediate GI upset Verified 08/22/18 15:01 morphine AdvReac Mild GI upset Verified 08/22/18 15:01 Review of Systems Constitutional:: Reports: Weakness, Fatigue, Fever, Appetite change - r/t taste disturbance. Denies: Sweats, Weight loss, Chills Cardiovascular:: Denies: Chest pain, Palpitations, Orthopnea, PND, Shortness of breath Respiratory: Reports: Shortness of breath upon exertion. Denies: Cough, Hemoptysis, Wheezing Gastrointestinal:: Reports: Nausea, Diarrhea. Denies: Abdominal pain, Vomiting, Constipation, Melena, Hematochezia Genitourinary: Denies: Dysuria, Hematuria, Urinary frequency, Flank pain Musculoskeletal:: Denies: Back pain, Myalgia, Arthralgia Skin: Denies: Rash, Skin Changes, Wounds Neurological:: Denies: Headache, Dizziness, Numbness, Tingling, Visual changes, Tinnitus, Hearing loss Psychiatric: Denies: Anxiety, Depression, Homicidal Ideations, Suicidal Ideations Vital Signs Height 5 ft 1 in Weight: 138 lb 7.205 oz Weight in Pounds 138.5 lbs Pulse Ox 94 Temperature 99.2 F Pulse Rate 95 Respiratory Rate 18 Blood Pressure 123/59 Blood Pressure Position Semi-Fowlers - Physical Exam General: Alert, Oriented x3, No apparent distress HEENT: Atraumatic, PERRLA, EOMI, Normocephalic, - - wears glasses Oropharynx:: Negative for: Dry mucosa, Ulcerated lesions Neck:: Supple, Trachea midline. Negative for: JVD, bilateral Cardiac:: Regular rate, Regular rhythm, Normal S1, Normal S2. Negative for: Murmur Lungs: Clear to auscultation, Excusion symmetrical. Negative for: Rhonchi, Wheezes Abdomen:: Soft, Non-tender, Non-distended, Hyperactive bowel sounds. Negative for: Hepatosplenomegaly Extremities:: Negative for: Cyanosis, Edema Neurological: Neuro grossly intact Skin:: - - Port left upper chest accessed with gripper covered with DSD, surrounding integument intact without erythema/edema. Negative for: Lesions, Rash, Petechiae, Ecchymosis Psychiatric:: Appropriate affect, Euthymic Lymphatics:: Negative for: Cervical lymphadenopathy, Supraclavicular lymphadenopathy, Axillary lymphadenopathy Laboratory Data: Microbiology 08/22/18 20:00 C. difficile DNA Amplification - Final Stool 08/22/18 16:00 Influenza Types A,B Direct FA (BRINA) - Final Mucosa - Nasopharyngeal Laboratory Tests 03/20/19 03/20/19 03/19/19 Range/Units 05:15 05:15 16:51 WBC 2.6 L (4.4-11.0) K/mm3 RBC 3.46 L (4.2-5.4) M/mm3 Hgb 10.6 L (12.0-15.0) g/dl Hct 32.8 L (37-47) % MCV 94.8 (81-99) fL MCH 30.6 (27.0-32.0) pg MCHC 32.3 (32-36) g/gl RDW 13.7 (11.6-14.6) % RDW Differential 46.9 H (35.1-43.9) fl Plt Count 155 (150-450) K/mm3 MPV 11.1 (6.2-12.0) fl Immature Gran % (Auto) 1.200 H (0.0-0.9) % Neut % (Auto) 10.0 L (47-70) % Lymph % (Auto) 37.4 (19-41) % [place] % (Auto) 40.9 H (0-10) % Eos % (Auto) 5.8 H (0-5) % Baso % (Auto) 4.7 H (0-1) % Absolute Neuts (auto) 0.3 L (2.0-7.7) X10^3/uL Absolute Lymphs (auto) 0.96 (0.83-4.51) X10^3/ul Total Counted Not Reportable Sodium 139 (136-145) mmol/L Potassium 4.3 (3.5-5.1) mmol/L Chloride 106 (98-107) mmol/L Carbon Dioxide 25.0 (21.0-32.0) mmol/L Anion Gap 8 (5-15) BUN 10 (7-18) mg/dL Creatinine 0.76 (0.55-1.02) mg/dL Estim Creat Clear Calc 37.24 ml/min Est GFR (MDRD) Af Amer 96 (>60) mL/min Est GFR (MDRD) Non-Af 79 (>60) mL/min BUN/Creatinine Ratio 13.2 (10-20) RATIO Glucose 94 (74-106) mg/dL Lactic Acid (0.4-2.0) mmol/L Calcium 8.4 L (8.5-10.1) mg/dL Urine Color Yellow (Yellow) Urine Clarity Clear (Clear) Urine pH 6.0 (5.0 - 8.0) Ur Specific [place] 1.015 (1.002-1.030) Urine Protein Negative (Negative) mg/dl Urine Glucose (UA) Normal (Normal) mg/dl Urine Ketones Negative (Negative) mg/dl Urine Occult Blood Negative (Negative) /ul Urine Nitrite Negative (Negative) Urine Bilirubin Negative (Negative) mg/dL Urine Urobilinogen Normal (Normal) mg/dl Ur Leukocyte Esterase Negative (Negative) /ul Urine RBC 0 SEEN (0-5) /hpf Urine WBC 0 SEEN (0-5) /hpf Ur Squamous Epith Cells 0 SEEN (5-10) /hpf Urine Bacteria 0 SEEN (None Seen) /hpf Urine Mucus 0 SEEN (<or=2+) /hpf 08/22/18 Range/Units 16:00 WBC (4.4-11.0) K/mm3 RBC (4.2-5.4) M/mm3 Hgb (12.0-15.0) g/dl Hct (37-47) % MCV (81-99) fL MCH (27.0-32.0) pg MCHC (32-36) g/gl RDW (11.6-14.6) % RDW Differential (35.1-43.9) fl Plt Count (150-450) K/mm3 MPV (6.2-12.0) fl Immature Gran % (Auto) (0.0-0.9) % Neut % (Auto) (47-70) % Lymph % (Auto) (19-41) % [place] % (Auto) (0-10) % Eos % (Auto) (0-5) % Baso % (Auto) (0-1) % Absolute Neuts (auto) (2.0-7.7) X10^3/uL Absolute Lymphs (auto) (0.83-4.51) X10^3/ul Total Counted Sodium (136-145) mmol/L Potassium (3.5-5.1) mmol/L Chloride (98-107) mmol/L Carbon Dioxide (21.0-32.0) mmol/L Anion Gap (5-15) BUN (7-18) mg/dL Creatinine (0.55-1.02) mg/dL Estim Creat Clear Calc ml/min Est GFR (MDRD) Af Amer (>60) mL/min Est GFR (MDRD) Non-Af (>60) mL/min BUN/Creatinine Ratio (10-20) RATIO Glucose (74-106) mg/dL Lactic Acid 1.2 (0.4-2.0) mmol/L Calcium (8.5-10.1) mg/dL Urine Color (Yellow) Urine Clarity (Clear) Urine pH (5.0 - 8.0) Ur Specific [place] (1.002-1.030) Urine Protein (Negative) mg/dl Urine Glucose (UA) (Normal) mg/dl Urine Ketones (Negative) mg/dl Urine Occult Blood (Negative) /ul Urine Nitrite (Negative) Urine Bilirubin (Negative) mg/dL Urine Urobilinogen (Normal) mg/dl Ur Leukocyte Esterase (Negative) /ul Urine RBC (0-5) /hpf Urine WBC (0-5) /hpf Ur Squamous Epith Cells (5-10) /hpf Urine Bacteria (None Seen) /hpf Urine Mucus (<or=2+) /hpf Diagnostic Data: Diagnostic Data Chest X-Ray 08/22/18 15:35 IMPRESSION: Degenerative changes, as described above. No demonstrated acute cardiopulmonary process. Electronically Signed: Nakul Aguero MD at 16:37 EDT , Service support , Assessment and Plan 1. Febrile neutropenia- Neutropenic despite growth factor support as evidenced by ANC 0.3 today. Neutrophils are recovering as ANC yesterday 0. CXR revealed no concern for pneumonia, UA unremarkable, influenza negative. Blood cultures are pending. C diff negative. Continue broad spectrum atb therapy, IV cefepime. 2. Stage I Invasive ductal carcinoma right breast- Received cycle 2/4 Taxotere/Cytoxan on 08/16/18, Neulasta administered on 08/17/18. 3. Diarrhea- Infectious vs. grade 3 diarrhea associated with chemotherapy. C diff negative. Enteric pathogen panel ordered, however does not appear to have been collected. If stool negative for infectious process, manage aggressively with loperamide. 4. Oral Candidiasis-Nystatin swish and swallow 4 times daily. 5. DVT prophylaxis-Lovenox sc. Platelets are preserved. Will continue to follow. Fabiana Kaplan, POLICY CANCELLATION CLERK-RISK CONTROL PRODUCT LIABILITY DIRECTOR, AOCNP Medications: Prescriptions This Visit Medication Instructions Recorded Levothyroxine Sodium [Synthroid] 50 mcg PO DAILY 08/22/18 Levothyroxine [Synthroid] 75 mcg PO STANLEY 08/22/18 Metoprolol Succinate [Toprol Xl] 12.5 mg PO DAILY 08/22/18 [place]-3 Fatty Acids/Fish Oil 1 each PO DAILY 08/22/18 [[place] 3 1,000 mg Softgel] Medications Added to Medication List This Visit Category Date Time Status 0.9% Saline Lock Med 08/23/18 05:35 Active 10 ml IV UD PRN 0.9% Saline Lock Med 08/23/18 05:35 Active 5 - 15 ml IV UD PRN Acetaminophen [Tylenol] Med 08/23/18 04:00 Active 650 mg PO Q6H PRN PRN Enoxaparin [Lovenox] Med 08/23/18 10:00 Active 40 mg SC DAILY@1000 Heparin Pf Lock 10 units/ml Med 08/23/18 05:35 Active 50 units IV UD PRN Levothyroxine [Synthroid] Med 08/23/18 06:00 Active 50 mcg PO DAILY@0600 Metoprolol(XL)Succ [Toprol Xl (Beta Perez)] Med 08/23/18 10:00 Active 12.5 mg PO DAILY Ondansetron [Zofran] Med 08/23/18 03:45 Active 4 mg IV Q6H PRN PRN Primary Care Provider: Temi Santos Referring Provider: Harshil Underwood MD - Problem List (1) Diarrhea Status: Acute Qualifiers: (2) Febrile neutropenia Status: Acute (3) Oral candidiasis Status: Acute (4) Breast cancer, right Status: Chronic Comment: High risk for recurrence by Oncotype DX
--- NOTE | 2018-08-23 11:25 | CON.PCM_ITS ---
Subjective Date of Service:: 08/23/18 Chief Complaint: Neutropenic Fever History of Present Illness: Ms. 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 ER positive (>95%), OK positive (10%), HER2/mirella not amplified. Status post right mastectomy with sentinel lymph node biopsy and an adequate resection margin June 2018. Given Oncotype DX s core of 32 indicating a high recurrence risk, commenced with cycle 1 of adjuvant chemotherapy with Taxotere/Cytoxan on 07/25/18, supported with G CSF on day 2. Despite growth factor support, developed fever and was admitted to [facility] for management of febrile neutropenia and pneumonia. Received cycle 2 Taxotere/Cytoxan on 08/16/18, Neulasta administered on 08/17/18. Patient developed fever on 08/19/18 and self administered Tylenol x 4 days. Made oncology aware of fevers 08/22/18, immediately evaluated in clinic. C/o nausea, diarrhea (> 10 episodes on 08/22/18) Found to be severely neutropenic (grade 4) and subsequently sent through [facility] ED for admission. CXR showed no evidence of pneumonia, UA unremarkable and influenza negative. Normotensive, although slightly tachycardic when she was seen in clinic. Lactic acid WNL. Presently patient is receiving broad spectrum atb therapy and supportive care with IVFs and antiemetics. C diff negative, enteric pathogen stool ordered. Blood c ultures pending. Upon entering the room, patient laying flat in bed in no distress. States diarrhea has improved, no longer describing as jelly-like. Abd cramping prior to BMs continues. Estimates 4 loose BMs since admission. Nausea controlled with Zofran, has not resulted in any episodes of emesis. Was able to eat a small amount of breakfast and taking sips. Past Medical History: Chronic Problems (Last Reviewed 08/22/18 @ 14:11 by Pamela Noyola) Hx of right mastectomy (Chronic) 06/08/18 Breast cancer, right (Chronic) High risk for recurrence by Oncotype DX History of repair of right rotator cuff (Chronic) MVP (mitral valve prolapse) (Chronic) HTN (hypertension) (Chronic) Hypothyroidism (Chronic) GERD (gastroesophageal reflux disease) (Chronic) History of eye surgery (Chronic) History of back surgery (Chronic) History of cholecystectomy (Chronic) Hemorrhoids (Chronic) Cardiac murmur (Chronic) Breast cancer (Chronic ~04/2018) Past Medical/Surgical History: Past Medical History - Most Recent Inpatient Visit Past Medical History Start: 08/22/18 18:31 Text: Status: Complete Freq: ONCE Protocol: Document 08/22/18 19:06 SCHUYLER (Rec: 08/22/18 19:09 [facility] [id number] BMI Required to complete PMH What is Patient's BMI 26.2 Past Medical History Unable History Recalled No Query Text:Pt Unable/Family Not Present Neurologic Medical History Hx Stroke/TIA No Hx Dementia/Alzheimer's No Hx Parkinson's Disease No Hx Seizures No Hx Multiple Sclerosis No Hx Migraines Yes: occular migraine Cardiac Medical History VTE Present on Admission No Hx of Deep Vein Thrombosis/VTE/PE No Hx Hypertension No Hx Chest Pain/Angina No Hx Heart Attack No Hx Cardiac Surgery/Stents/Etc. No Hx Heart Failure No Hx Pacemaker/AICD No Hx Irregular Heartbeat and/or Afib No: mvp/tachycardia Hx Anticoagulant Therapy No Query Text:(Coumadin, Aspirin, Plavix, Xarelto, etc.) Hx Pain in Legs when Walking/Leg Cramps Yes: occ cramps Respiratory Medical History Hx COPD No Hx Emphysema No Hx Smoking No Smoking Status Never smoker Hx Tobacco Use in last 12 months No Hx Sleep Apnea No Do you snore loudly (louder than talking No or can be heard through closed doors)? Do you often feel tired/ fatigued/ No sleepy during daytime? Has anyone observed you stop breathing No during sleep? STOP Results Negative GI Medical History Hx Ulcer No: small hiatal hernia Hx Hepatitis No Hx Cirrhosis No Hx GI Bleed No Hx Unplanned Weight Loss Yes Genitourinary Medical History Indwelling Catheter in Place on Arrival/ No Admission Hx Renal Disease No: BLADDER LEAKAGE Hx Dialysis No Musculoskeletal History Hx Arthritis Yes: polymyalgia rhematica Hx Rheumatoid Arthritis No Endocrine Medical History Hx Diabetes No Hx Thyroid Disease Yes: on med Hematologic Medical History Hx of Blood Transfusion No Hx of Transfusion in last 3 Months No Ever experience any problems with No transfusion(s)? Hx of Preganancy in last 3 Months No Nurse Filling Out Transfusion & SGESSEL Questions: Date: 08/22/18 Time: 19:09 Psycho/Social Medical History Hx Depression No Hx Anxiety No Hx Behavior Disorder No Hx Alcohol Use No Hx Substance Use No Other Medical History Hx Blood Disorders No Hx Anemia No Hx Cancer Yes: breast/MASTECTOMY-right 2018 Hx Drug Resistant Organism No Wound/Pressure Injury Present on Arrival No /Admission Query Text:If yes, chart assessment in Shift/Clinical Findings Central Line/PICC/VAD Present on Arrival Yes /Admission Antibiotics within last 7 days? No Comments left sided chest port-last chemo 08-16-18 Risk for Readmission Number of Risk Factors 5 At Risk for Readmission Patient is At Risk For Readmission Patient is eligible for Call Back Y Past Medical History (Last Reviewed 08/22/18 @ 14:11 by Pamela Noyola) Breast cancer, right (Chronic) MVP (mitral valve prolapse) (Chronic) HTN (hypertension) (Chronic) Hypothyroidism (Chronic) GERD (gastroesophageal reflux disease) (Chronic) Hemorrhoids (Chronic) Cardiac murmur (Chronic) Breast cancer (Chronic ~04/2018) PORT PLACEMENT (Acute) Past Surgical History (Last Reviewed 08/22/18 @ 18:10 by GOYO Garcia) Hx of right mastectomy (Chronic) History of repair of right rotator cuff (Chronic) History of eye surgery (Chronic) History of back surgery (Chronic) History of cholecystectomy (Chronic) Maternal Family History: Family History (Last Reviewed 08/22/18 @ 18:38 by GOYO Garcia) Mother Breast cancer Sister Cancer Father Heart disease Paternal Family History: Family History (Last Reviewed 08/22/18 @ 18:38 by GOYO Garcia) Mother Breast cancer Sister Cancer Father Heart disease - Social History Lives: With Family Smoking Status: Never smoker Alcohol: None Drugs: None Allergies/Adverse Reactions: Allergy/AdvReac Type Severity Reaction Status Date / Time aspirin [ASA] Allergy Severe respiratory Verified 08/22/18 15:01 distress adhesive tape AdvReac Intermediate Rash Verified 08/22/18 15:01 meperidine [From Demerol] AdvReac Intermediate GI upset Verified 08/22/18 15:01 morphine AdvReac Mild GI upset Verified 08/22/18 15:01 Review of Systems Constitutional:: Reports: Weakness, Fatigue, Fever, Appetite change - r/t taste disturbance. Denies: Sweats, Weight loss, Chills Cardiovascular:: Denies: Chest pain, Palpitations, Orthopnea, PND, Shortness of breath Respiratory: Reports: Shortness of breath upon exertion. Denies: Cough, Hemoptysis, Wheezing Gastrointestinal:: Reports: Nausea, Diarrhea. Denies: Abdominal pain, Vomiting, Constipation, Melena, Hematochezia Genitourinary: Denies: Dysuria, Hematuria, Urinary frequency, Flank pain Musculoskeletal:: Denies: Back pain, Myalgia, Arthralgia Skin: Denies: Rash, Skin Changes, Wounds Neurological:: Denies: Headache, Dizziness, Numbness, Tingling, Visual changes, Tinnitus, Hearing loss Psychiatric: Denies: Anxiety, Depression, Homicidal Ideations, Suicidal Ideations Vital Signs Height 5 ft 1 in Weight: 138 lb 7.205 oz Weight in Pounds 138.5 lbs Pulse Ox 94 Temperature 99.2 F Pulse Rate 95 Respiratory Rate 18 Blood Pressure 123/59 Blood Pressure Position Semi-Fowlers - Physical Exam General: Alert, Oriented x3, No apparent distress HEENT: Atraumatic, PERRLA, EOMI, Normocephalic, - - wears glasses Oropharynx:: Negative for: Dry mucosa, Ulcerated lesions Neck:: Supple, Trachea midline. Negative for: JVD, bilateral Cardiac:: Regular rate, Regular rhythm, Normal S1, Normal S2. Negative for: Murmur Lungs: Clear to auscultation, Excusion symmetrical. Negative for: Rhonchi, Wheezes Abdomen:: Soft, Non-tender, Non-distended, Hyperactive bowel sounds. Negative for: Hepatosplenomegaly Extremities:: Negative for: Cyanosis, Edema Neurological: Neuro grossly intact Skin:: - - Port left upper chest accessed with gripper covered with DSD, surrou nding integument intact without erythema/edema. Negative for: Lesions, Rash, Petechiae, Ecchymosis Psychiatric:: Appropriate affect, Euthymic Lymphatics:: Negative for: Cervical lymphadenopathy, Supraclavicular lymphadenopathy, Axillary lymphadenopathy Laboratory Data: Microbiology 08/22/18 20:00 C. difficile DNA Amplification - Final Stool 08/22/18 16:00 Influenza Types A,B Direct FA (BRINA) - Final Mucosa - Nasopharyngeal Laboratory Tests 08/23/18 08/23/18 08/22/18 Range/Units 05:15 05:15 16:51 WBC 2.6 L (4.4-11.0) K/mm3 RBC 3.46 L (4.2-5.4) M/mm3 Hgb 10.6 L (12.0-15.0) g/dl Hct 32.8 L (37-47) % MCV 94.8 (81-99) fL MCH 30.6 (27.0-32.0) pg MCHC 32.3 (32-36) g/gl RDW 13.7 (11.6-14.6) % RDW Differential 46.9 H (35.1-43.9) fl Plt Count 155 (150-450) K/mm3 MPV 11.1 (6.2-12.0) fl Immature Gran % (Auto) 1.200 H (0.0-0.9) % Neut % (Auto) 10.0 L (47-70) % Lymph % (Auto) 37.4 (19-41) % [place] % (Auto) 40.9 H (0-10) % Eos % (Auto) 5.8 H (0-5) % Baso % (Auto) 4.7 H (0-1) % Absolute Neuts (auto) 0.3 L (2.0-7.7) X10^3/uL Absolute Lymphs (auto) 0.96 (0.83-4.51) X10^3/ul Total Counted Not Reportable Sodium 139 (136-145) mmol/L Potassium 4.3 (3.5-5.1) mmol/L Chloride 106 (98-107) mmol/L Carbon Dioxide 25.0 (21.0-32.0) mmol/L Anion Gap 8 (5-15) BUN 10 (7-18) mg/dL Creatinine 0.76 (0.55-1.02) mg/dL Estim Creat Clear Calc 37.24 ml/min Est GFR (MDRD) Af Amer 96 (>60) mL/min Est GFR (MDRD) Non-Af 79 (>60) mL/min BUN/Creatinine Ratio 13.2 (10-20) RATIO Glucose 94 (74-106) mg/dL Lactic Acid (0.4-2.0) mmol/L Calcium 8.4 L (8.5-10.1) mg/dL Urine Color Yellow (Yellow) Urine Clarity Clear (Clear) Urine pH 6.0 (5.0 - 8.0) Ur Specific [place] 1.015 (1.002-1.030) Urine Protein Negative (Negative) mg/dl Urine Glucose (UA) Normal (Normal) mg/dl Urine Ketones Negative (Negative) mg/dl Urine Occult Blood Negative (Negative) /ul Urine Nitrite Negative (Negative) Urine Bilirubin Negative (Negative) mg/dL Urine Urobilinogen Normal (Normal) mg/dl Ur Leukocyte Esterase Negative (Negative) /ul Urine RBC 0 SEEN (0-5) /hpf Urine WBC 0 SEEN (0-5) /hpf Ur Squamous Epith Cells 0 SEEN (5-10) /hpf Urine Bacteria 0 SEEN (None Seen) /hpf Urine Mucus 0 SEEN (<or=2+) /hpf 08/22/18 Range/Units 16:00 WBC (4.4-11.0) K/mm3 RBC (4.2-5.4) M/mm3 Hgb (12.0-15.0) g/dl Hct (37-47) % MCV (81-99) fL MCH (27.0-32.0) pg MCHC (32-36) g/gl RDW (11.6-14.6) % RDW Differential (35.1-43.9) fl Plt Count (150-450) K/mm3 MPV (6.2-12.0) fl Immature Gran % (Auto) (0.0-0.9) % Neut % (Auto) (47-70) % Lymph % (Auto) (19-41) % [place] % (Auto) (0-10) % Eos % (Auto) (0-5) % Baso % (Auto) (0-1) % Absolute Neuts (auto) (2.0-7.7) X10^3/uL Absolute Lymphs (auto) (0.83-4.51) X10^3/ul Total Counted Sodium (136-145) mmol/L Potassium (3.5-5.1) mmol/L Chloride (98-107) mmol/L Carbon Dioxide (21.0-32.0) mmol/L Anion Gap (5-15) BUN (7-18) mg/dL Creatinine (0.55-1.02) mg/dL Estim Creat Clear Calc ml/min Est GFR (MDRD) Af Amer (>60) mL/min Est GFR (MDRD) Non-Af (>60) mL/min BUN/Creatinine Ratio (10-20) RATIO Glucose (74-106) mg/dL Lactic Acid 1.2 (0.4-2.0) mmol/L Calcium (8.5-10.1) mg/dL Urine Color (Yellow) Urine Clarity (Clear) Urine pH (5.0 - 8.0) Ur Specific [place] (1.002-1.030) Urine Protein (Negative) mg/dl Urine Glucose (UA) (Normal) mg/dl Urine Ketones (Negative) mg/dl Urine Occult Blood (Negative) /ul Urine Nitrite (Negative) Urine Bilirubin (Negative) mg/dL Urine Urobilinogen (Normal) mg/dl Ur Leukocyte Esterase (Negative) /ul Urine RBC (0-5) /hpf Urine WBC (0-5) /hpf Ur Squamous Epith Cells (5-10) /hpf Urine Bacteria (None Seen) /hpf Urine Mucus (<or=2+) /hpf Diagnostic Data: Diagnostic Data Chest X-Ray 08/22/18 15:35 IMPRESSION: Degenerative changes, as described above. No demonstrated acute cardiopulmonary process. Electronically Signed: Nakul Aguero MD at 16:37 EDT , Service support , Assessment and Plan 1. Febrile neutropenia- Neutropenic despite growth factor support as evidenced by ANC 0.3 today. Neutrophils are recovering as ANC yesterday 0. CXR revealed no concern for pneumonia, UA unremarkable, influenza negative. Blood cultures are pending. C diff negative. Continue broad spectrum atb therapy, IV cefepime. 2. Stage I Invasive ductal carcinoma right breast- Received cycle 2/4 Taxotere/Cytoxan on 08/16/18, Neulasta administered on 08/17/18. 3. Diarrhea- Infectious vs. grade 3 diarrhea associated with chemotherapy. C diff negative. Enteric pathogen panel ordered, however does not appear to have been collected. If stool negative for infectious process, manage aggressively with loperamide. 4. Oral Candidiasis-Nystatin swish and swallow 4 times daily. 5. DVT prophylaxis-Lovenox sc. Platelets are preserved. Will continue to follow. Fabiana Kaplan, PAYROLL AND BENEFITS ASSISTANT-MOBILE ARCHITECT, AOCNP Medications: Prescriptions This Visit Medication Instructions Recorded Levothyroxine Sodium [Synthroid] 50 mcg PO DAILY 08/22/18 Levothyroxine [Synthroid] 75 mcg PO STANLEY 08/22/18 Metoprolol Succinate [Toprol Xl] 12.5 mg PO DAILY 08/22/18 [place]-3 Fatty Acids/Fish Oil 1 each PO DAILY 08/22/18 [[place] 3 1,000 mg Softgel] Medications Added to Medication List This Visit Category Date Time Status 0.9% Saline Lock Med 08/23/18 05:35 Active 10 ml IV UD PRN 0.9% Saline Lock Med 08/23/18 05:35 Active 5 - 15 ml IV UD PRN Acetaminophen [Tylenol] Med 08/23/18 04:00 Active 650 mg PO Q6H PRN PRN Enoxaparin [Lovenox] Med 08/23/18 10:00 Active 40 mg SC DAILY@1000 Heparin Pf Lock 10 units/ml Med 08/23/18 05:35 Active 50 units IV UD PRN Levothyroxine [Synthroid] Med 08/23/18 06:00 Active 50 mcg PO DAILY@0600 Metoprolol(XL)Succ [Toprol Xl (Beta Perez)] Med 08/23/18 10:00 Active 12.5 mg PO DAILY Ondansetron [Zofran] Med 08/23/18 03:45 Active 4 mg IV Q6H PRN PRN Primary Care Provider: Temi Santos Referring Provider: Harshil Underwood MD - Problem List (1) Diarrhea Status: Acute Qualifiers: (2) Febrile neutropenia Status: Acute (3) Oral candidiasis Status: Acute (4) Breast cancer, right Status: Chronic Comment: High risk for recurrence by Oncotype DX
--- NOTE | 2018-08-23 11:27 | PN_ITS ---
Addendum entered and electronically signed by GOYO Garcia 08/23/18 14:37: Code Visit Additional diagnosis-evidence of moderate protein calorie malnutrition-nutrition consult. Original Note: <Anyi Connor - Last Filed: 08/23/18 14:36> Patient Problems: Active and Suspected Problems (Last Reviewed 08/22/18 @ 14:11 by Pamela Noyola) Febrile neutropenia (Acute) Oral candidiasis (Acute) Diarrhea (Acute) Subjective: Patient seen and examined. States she did not sleep well last night. Reports she just didn't feel good. Feels improved today. - Physical Exam General: Alert, Oriented x3, Cooperative HEENT: Atraumatic, PERRLA, EOMI, Normocephalic Oral: - - Oral thrush present. Neck: Supple, No JVD, Negative Carotid Bruits Lungs: Clear to auscultation, Normal air movement, - - Right chest port Cardiovascular: Regular rate, Regular Rhythm, Normal S1, Normal S2, No murmurs Abdomen: Bowel Sounds Present, Soft, Non Tender, Non-Distended Extremities: No clubbing, No cyanosis, No edema, Capillary Refill Less than 3 Seconds Skin: No rashes, No breakdown Musculoskeletal: No Tenderness to Palpation of Joints or Extremities Neurological: Cranial nerves II-XII grossly intact, Neuro grossly intact Psych/Mental Status: Normal Affect, Appropriate Vital Signs Temp Pulse Resp BP Pulse Ox 99.2 F H 95 18 123/59 H 94 08/23/18 08:51 08/23/18 08:56 08/23/18 08:51 08/23/18 08:51 08/23/18 08:51 Oxygen Delivery Method Room Air Weight: 138 lb 7.205 oz Body Mass Index (BMI) 26.2 Intake and Output for Last 24 Hours 08/21/18 08/22/18 08/23/18 23:59 23:59 23:59 Intake Total 1026 / 1026 Output Total 600 / 600 Balance 426 / 426 Microbiology Past 72 Hours 08/22/18 20:00 C. difficile DNA Amplification - Final Stool 08/22/18 16:00 Influenza Types A,B Direct FA (BRINA) - Final Mucosa - Nasopharyngeal Laboratory Tests Past 24 Hrs 08/22/18 08/22/18 08/23/18 16:00 16:51 05:15 WBC 2.6 L RBC 3.46 L Hgb 10.6 L Hct 32.8 L MCV 94.8 MCH 30.6 MCHC 32.3 RDW 13.7 RDW Differential 46.9 H Plt Count 155 MPV 11.1 Immature Gran % (Auto) 1.200 H Neut % (Auto) 10.0 L Lymph % (Auto) 37.4 [place] % (Auto) 40.9 H Eos % (Auto) 5.8 H Baso % (Auto) 4.7 H Absolute Neuts (auto) 0.3 L Absolute Lymphs (auto) 0.96 Total Counted Not Reportable Sodium Potassium Chloride Carbon Dioxide Anion Gap BUN Creatinine Estim Creat Clear Calc Est GFR (MDRD) Af Amer Est GFR (MDRD) Non-Af BUN/Creatinine Ratio Glucose Lactic Acid 1.2 Calcium Urine Color Yellow Urine Clarity Clear Urine pH 6.0 Ur Specific [place] 1.015 Urine Protein Negative Urine Glucose (UA) Normal Urine Ketones Negative Urine Occult Blood Negative Urine Nitrite Negative Urine Bilirubin Negative Urine Urobilinogen Normal Ur Leukocyte Esterase Negative Urine RBC 0 SEEN Urine WBC 0 SEEN Ur Squamous Epith Cells 0 SEEN Urine Bacteria 0 SEEN Urine Mucus 0 SEEN 08/23/18 05:15 WBC RBC Hgb Hct MCV MCH MCHC RDW RDW Differential Plt Count MPV Immature Gran % (Auto) Neut % (Auto) Lymph % (Auto) [place] % (Auto) Eos % (Auto) Baso % (Auto) Absolute Neuts (auto) Absolute Lymphs (auto) Total Counted Sodium 139 Potassium 4.3 Chloride 106 Carbon Dioxide 25.0 Anion Gap 8 BUN 10 Creatinine 0.76 Estim Creat Clear Calc 37.24 Est GFR (MDRD) Af Amer 96 Est GFR (MDRD) Non-Af 79 BUN/Creatinine Ratio 13.2 Glucose 94 Lactic Acid Calcium 8.4 L Urine Color Urine Clarity Urine pH Ur Specific [place] Urine Protein Urine Glucose (UA) Urine Ketones Urine Occult Blood Urine Nitrite Urine Bilirubin Urine Urobilinogen Ur Leukocyte Esterase Urine RBC Urine WBC Ur Squamous Epith Cells Urine Bacteria Urine Mucus Medical Necessity - Tobacco Use Smoking Status: Never smoker Assessment/Plan All Active Problems (Last Reviewed 08/22/18 @ 14:11 by Pamela Noyola) Febrile neutropenia (Acute) Oral candidiasis (Acute) Diarrhea (Acute) 1. Neutropenic fever- Consult oncology. IV cefepime. She had recent Neulasta injection following chemotherapy. Tylenol PRN for fever. Negative for influenza. Blood cx pending. Trend cbc. WBC and absolute neutrophils improving. 2. Oral Candidiasis-nystatin swish and swallow 4 times daily. 3. Diarrhea-suspect secondary to chemotherapy regimen given patient reports diarrhea with previous chemotherapy as well. C.Diff negative. Imodium as needed. 4. 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 Follows with Dr. Kelly. 5. Hypertension- stable, continue home metoprolol. 6. Hypothyroidism- continue synthroid regimen. 7. GERD- continue PPI. DVT prophylaxis-Lovenox sc This patient was seen by GOYO Garcia under the supervision of Dr. Matute. <Latonya Matute - Last Filed: 08/23/18 16:13> - Physical Exam Vital Signs Temp Pulse Resp BP Pulse Ox 98.6 F 95 16 116/61 97 08/23/18 14:52 08/23/18 14:52 08/23/18 14:52 08/23/18 14:52 08/23/18 14:52 Oxygen Delivery Method Room Air Weight: 62.8 kg Body Mass Index (BMI) 26.2 Intake and Output for Last 24 Hours 08/21/18 08/22/18 08/23/18 23:59 23:59 23:59 Intake Total 2152 / 2152 Output Total 2100 / 2100 Balance 52 / 52 Microbiology Past 72 Hours 08/22/18 20:00 C. difficile DNA Amplification - Final Stool 08/22/18 16:00 Influenza Types A,B Direct FA (BRINA) - Final Mucosa - Nasopharyngeal Laboratory Tests Past 24 Hrs 08/22/18 08/22/18 08/23/18 16:00 16:51 05:15 WBC 2.6 L RBC 3.46 L Hgb 10.6 L Hct 32.8 L MCV 94.8 MCH 30.6 MCHC 32.3 RDW 13.7 RDW Differential 46.9 H Plt Count 155 MPV 11.1 Immature Gran % (Auto) 1.200 H Neut % (Auto) 10.0 L Lymph % (Auto) 37.4 [place] % (Auto) 40.9 H Eos % (Auto) 5.8 H Baso % (Auto) 4.7 H Absolute Neuts (auto) 0.3 L Absolute Lymphs (auto) 0.96 Total Counted Not Reportable Sodium Potassium Chloride Carbon Dioxide Anion Gap BUN Creatinine Estim Creat Clear Calc Est GFR (MDRD) Af Amer Est GFR (MDRD) Non-Af BUN/Creatinine Ratio Glucose Lactic Acid 1.2 Calcium Urine Color Yellow Urine Clarity Clear Urine pH 6.0 Ur Specific [place] 1.015 Urine Protein Negative Urine Glucose (UA) Normal Urine Ketones Negative Urine Occult Blood Negative Urine Nitrite Negative Urine Bilirubin Negative Urine Urobilinogen Normal Ur Leukocyte Esterase Negative Urine RBC 0 SEEN Urine WBC 0 SEEN Ur Squamous Epith Cells 0 SEEN Urine Bacteria 0 SEEN Urine Mucus 0 SEEN 08/23/18 05:15 WBC RBC Hgb Hct MCV MCH MCHC RDW RDW Differential Plt Count MPV Immature Gran % (Auto) Neut % (Auto) Lymph % (Auto) [place] % (Auto) Eos % (Auto) Baso % (Auto) Absolute Neuts (auto) Absolute Lymphs (auto) Total Counted Sodium 139 Potassium 4.3 Chloride 106 Carbon Dioxide 25.0 Anion Gap 8 BUN 10 Creatinine 0.76 Estim Creat Clear Calc 37.24 Est GFR (MDRD) Af Amer 96 Est GFR (MDRD) Non-Af 79 BUN/Creatinine Ratio 13.2 Glucose 94 Lactic Acid Calcium 8.4 L Urine Color Urine Clarity Urine pH Ur Specific [place] Urine Protein Urine Glucose (UA) Urine Ketones Urine Occult Blood Urine Nitrite Urine Bilirubin Urine Urobilinogen Ur Leukocyte Esterase Urine RBC Urine WBC Ur Squamous Epith Cells Urine Bacteria Urine Mucus Assessment/Plan This patient was seen in conjunction with Anyi Connor NP. I have independently interviewed and examined the patient and reviewed pertinent historical, laboratory, and other data. Please refer to her note for patient's presentation, findings, and recommendations. 73-year-old female with past medical history of hypertension, hypothyroidism, GERD, recently diagnosed with stage I ductal invasive cancer on the right breast status post mastectomy, chemotherapy who was admitted with fever and found to be neutropenic. Patient was seen and examined. Denied any new complaints. She feels slowly improving. No fevers seen since admission. Vitals are stable. Having frequent bowel movements. Stool for c. diff is negative, on Imodium Physical Exam: Gen: appears comfortable, not pale, not jaundiced, alert oriented x3 CVS:HS I +II, regular, no murmurs RESP: Diminished at lung bases GI: Full, firm, nontender, no ballotable organs EXT:No edema ASSESSMENT: 1. Neutropenic fever, slowly improving, absolute neutrophil count is 0.3 2. Microcytic microchromic anemia 3. Oral Candidiasis 4. Acute diarrhea 5. Hypertension 6. Hypothyroidism 7. Stage I invasive ductal carcinoma of the right breast 8. GERD Meds reviewed Plan: Continue with neutropenic precautions, continue cefepime Repeat blood work in a.m. Code Visit Inpatient E&M: 67624 Subs Hosp L2
[2018-08-23 14:52] VITALS: BP 116/61; PULSE 95; RESP 16; TEMP 37; O2SAT 97
[2018-08-23 20:39] VITALS: BP 127/59; PULSE 93; RESP 16; TEMP 37.2; O2SAT 93
[2018-08-23] MEDS: Loperamide 2 MG Capsule PO (20:48)
[2018-08-23] MEDS: Ondansetron 4 MG/2 ML Vial IV (20:49)
[2018-08-23] MEDS: Pantoprazole Sodium 40 MG Tablet PO (21:33)
[2018-08-23] MEDS: MELATONIN 10 MG TABLET PO (22:32)
[2018-08-24] MEDS: 0.9% Normal Saline 1,000 ML 100 ML IV (00:56)
[2018-08-24 03:30] VITALS: BP 107/43; PULSE 98; RESP 16; TEMP 36.8; O2SAT 92
[2018-08-24] MEDS: Levothyroxine 50 MCG Tablet PO (06:18)
[2018-08-24 07:11] LABS: Hematocrit 31.4 % (37-47); Hemoglobin 10.2 g/dl (12.0-15.0); Mean Corp Hgb Conc 32.5 g/gl (32-36); Mean Corpuscular Hgb 31.1 pg (27.0-32.0); Mean Corpuscular Volume 95.7 fL (81-99); Mean Platelet Vol. 10.6 fl (6.2-12.0); Platelet Count 165 K/mm3 (150-450); RBC Distribution Width CV 13.4 % (11.6-14.6); RBC Distribution Width SD 44.1 fl (35.1-43.9); Red Blood Count 3.28 M/mm3 (4.2-5.4); White Blood Count 19.6 K/mm3 (4.4-11.0)
[2018-08-24 07:12] LABS: POSITIVE DIFFERENTIAL YES
[2018-08-24 07:13] LABS: Differential Indicated MANUAL DIFF; POSITIVE COUNT NO; POSITIVE MORPHOLOGY YES
--- NOTE | 2018-08-24 07:35 | DCINST_ITS ---
- Discharge Diagnoses Current Active Problems: Current Active and Chronic Problems (Last Reviewed 08/22/18 @ 14:11 by Pamela Noyola) Febrile neutropenia (Acute) Oral candidiasis (Acute) Diarrhea (Acute) Reason(s) for Visit for Discharge Instructions: Fever, diarrhea You will use the following diet at home:: No restrictions Your food should be the consistency of: Regular Your liquids should be the consistency of: Regular/Thin Discharge Activity: Return to Normal Activity Call your doctor if you observe: Fever of 101 or Higher, Shortness of breath Additional Instructions: Continue to keep yourself hydrated. Follow-up with oncology and your primary care doctor as scheduled Allergies/Adverse Reactions: Allergies aspirin [ASA] Allergy (Severe, Verified 08/22/18 15:01) respiratory distress adhesive tape Adverse Reaction (Intermediate, Verified 08/22/18 15:01) Rash meperidine [From Demerol] Adverse Reaction (Intermediate, Verified 08/22/18 15:01) GI upset morphine Adverse Reaction (Mild, Verified 08/22/18 15:01) GI upset Medications to take at Discharge pantoprazole 40 mg tablet,delayed release 40 mg PO QHS 05/22/18 Glucosam/MSM/Chondroit/Vit D3 [Sv Glucosamine Chondroitin Tab] 1 tab PO BID 05/26/18 Red Yeast Rice 1,200 mg PO BID 05/26/18 Calcium Carbonate/Vitamin D3 [Calcium 600 + Vit D Tablet] 1 ea PO DAILY 07/11/18 Cyanocobalamin [Vitamin B12] 1,000 mcg PO DAILY@0800 07/13/18 Lidocaine/Prilocaine [Lidocaine-Prilocaine Cream] 1 applicatio TP DAILY PRN PRN 30 Days #1 tube 07/19/18 Levothyroxine Sodium [Synthroid] 50 mcg PO DAILY 08/22/18 Levothyroxine [Synthroid] 75 mcg PO STANLEY 08/22/18 Metoprolol Succinate [Toprol Xl] 12.5 mg PO DAILY 08/22/18 [place]-3 Fatty Acids/Fish Oil [[place] 3 1,000 mg Softgel] 1 each PO DAILY 08/22/18 Acetaminophen [Tylenol Tablet] 650 mg PO Q6H PRN PRN tablet 08/24/18 Nystatin 500,000 unit PO 4X/DAY 7 Days #1 udc 08/24/18 The following prescriptions were given: Nystatin 500,000 unit PO 4X/DAY 7 Days #1 [facility] [place] Primary Care Physician: Temi Santos [Primary Care Provider] - Please follow up with your Primary Care Physician in: within 1-2 weeks Test Results: Test results from this visit will be discussed in further detail at your follow- up appointment, if applicable. Please Follow Up With: Cal Kelly MD When: as scheduled Proposed Discharge Date: 08/24/18
[2018-08-24 07:47] LABS: Eosinophil 1 % (0-5); Lymphocyte 16 % (19-41); Metamyelocyte 5 % (0-1); Monocyte 14 % (0-10); Myelocyte 2 (0-0); Neutrophil-Band 4 % (0-5); Neutrophil-Segmented 56 % (47-70); Nucleated Red Bld Cells,Manual 1 % (0-5); Promyelocyte 2 (0-0); Total Cells Counted 100 (MANUAL DIFF)
[2018-08-24 07:48] LABS: Hypochromasia RARE; Platelet Estimate ADEQUATE (ADEQ)
[2018-08-24 07:49] LABS: Absolute Neutrophil Count 11.8 X10^3/uL (2.0-7.7)
[2018-08-24 07:50] LABS: Absolute Lymphocyte Count 3.14 X10^3/ul (0.83-4.51)
[2018-08-24 09:09] VITALS: BP 121/49; PULSE 106; RESP 18; TEMP 36.9; O2SAT 96
[2018-08-24 09:22] VITALS: PULSE 106
[2018-08-24] MEDS: NYSTATIN 500,000 UNIT/5 ML UDC 500000 UNIT PO (09:22)
[2018-08-24] MEDS: Metoprolol(XL)Succ 25 MG Tablet 12.5 MG PO (09:22)
[2018-08-24] MEDS: Enoxaparin 40 MG/0.4 ML Syringe SC (09:25)
--- NOTE | 2018-08-24 09:53 | PCM.DC.SUM ---
Discharge Date and Diagnosis - Problem List Patient Problems: Active and Suspected Problems (Last Reviewed 08/22/18 @ 14:11 by Pamela Noyola) Febrile neutropenia (Acute) Oral candidiasis (Acute) Date of Admission: 08/22/18 Date of Discharge: 08/24/18 - Primary Discharge Diagnosis Active and Suspected Problems (Last Reviewed 08/22/18 @ 14:11 by Pamela Noyola) Febrile neutropenia (Acute) Oral candidiasis (Acute) Diarrhea (Acute) - Secondary Discharge Diagnosis Chronic Problems (Last Reviewed 08/22/18 @ 14:11 by Pamela Noyola) Hx of right mastectomy (Chronic) 06/08/18 Breast cancer, right (Chronic) High risk for recurrence by Oncotype DX History of repair of right rotator cuff (Chronic) MVP (mitral valve prolapse) (Chronic) HTN (hypertension) (Chronic) Hypothyroidism (Chronic) GERD (gastroesophageal reflux disease) (Chronic) History of eye surgery (Chronic) History of back surgery (Chronic) History of cholecystectomy (Chronic) Hemorrhoids (Chronic) Cardiac murmur (Chronic) Breast cancer (Chronic ~04/2018) Hospital Course and Treatment Imaging Results: Clinical Impression(s) from Imaging Studies Chest X-Ray 08/22/18 15:35 IMPRESSION: Degenerative changes, as described above. No demonstrated acute cardiopulmonary process. Electronically Signed: Nakul Aguero MD at 16:37 EDT , Service support , Clinical Impression(s) from Imaging Studies Chest X-Ray 08/22/18 15:35 IMPRESSION: Degenerative changes, as described above. No demonstrated acute cardiopulmonary process. Electronically Signed: Nakul Aguero MD at 16:37 EDT , Service support , None Operations: None Procedures: None Summary of Care Provided: The patient is a 73 year old F with past medical history of intraductal carcinoma of the breast, status post right mastectomy , following with oncology, on chemotherapy. She had a second cycle of chemotherapy on 08/16/18 followed by [facility]. Patient comes with complaints of fever but no nausea or vomiting. She admits to diarrhea. Stool for C. difficile was negative. Blood cultures were pending at the time of discharge. Influenza screen was negative. Patient was admitted with a white cell count of 2.6, absolute neutrophil count was 0.3. She was maintained on neutropenic precautions, IV antibiotics. White cell count improved to 19.6, Diarrhea resolved. She was discharged to follow-up in the outpatient with oncology. Patient Problems: Active and Suspected Problems (Last Reviewed 08/22/18 @ 14:11 by Pamela Noyola) Febrile neutropenia (Acute) Oral candidiasis (Acute) Subjective: Patient was seen and examined. She feels fatigued. Denies fever or chills or nausea or vomiting. - Physical Exam General: Alert, Oriented x3, Cooperative, No apparent distress HEENT: Atraumatic, PERRLA, EOMI, Normocephalic Oral: Moist Mucosa Neck: Supple Lungs: Clear to auscultation, Normal air movement Cardiovascular: Regular rate, Regular Rhythm, Normal S1, Normal S2, No murmurs Abdomen: Bowel Sounds Present, Soft, Non Tender, Non-Distended, No Hepato-splenomegaly Extremities: No edema Skin: No rashes Musculoskeletal: No Tenderness to Palpation of Joints or Extremities Lymphatic: No Cervical, Supraclavicular, or Inguinal Adenopathy Neurological: Cranial nerves II-XII grossly intact, Neuro grossly intact Psych/Mental Status: Normal Affect, Appropriate Vital Signs Temp Pulse Resp BP Pulse Ox 98.4 F 106 H 18 121/49 H 96 08/24/18 09:09 08/24/18 09:22 08/24/18 09:09 08/24/18 09:09 08/24/18 09:09 Oxygen Delivery Method Room Air Weight: 62.8 kg Body Mass Index (BMI) 26.2 Intake and Output for Last 24 Hours 08/22/18 08/23/18 08/24/18 23:59 23:59 23:59 Intake Total 2152 / 2152 2229 / 2229 Output Total 2100 / 2100 1300 / 1300 Balance 52 / 52 929 / 929 Microbiology Past 72 Hours 08/22/18 20:00 C. difficile DNA Amplification - Final Stool 08/22/18 16:00 Influenza Types A,B Direct FA (BRINA) - Final Mucosa - Nasopharyngeal Laboratory Tests Past 24 Hrs 08/24/18 06:40 WBC 19.6 H RBC 3.28 L Hgb 10.2 L Hct 31.4 L MCV 95.7 MCH 31.1 MCHC 32.5 RDW 13.4 RDW Differential 44.1 H Plt Count 165 MPV 10.6 Neut % (Auto) Not Reportable Absolute Neuts (auto) 11.8 H Absolute Lymphs (auto) 3.14 Total Counted 100 Neutrophils % (Manual) 56 Band Neutrophils % 4 Lymphocytes % (Manual) 16 L Monocytes % (Manual) 14 H Eosinophils % (Manual) 1 Metamyelocytes % 5 H Myelocytes % 2 H Promyelocytes % 2 H Nucleated RBCs/100 WBC 1 [address] Review May foll Platelet Estimate ADEQUATE Hypochromasia RARE Discharge Diet: No Restrictions Discharge Activity: Return to Normal Activity Call your doctor if you observe: Fever of 101 or Higher, Shortness of breath Home Medications: Medications to take at Discharge pantoprazole 40 mg tablet,delayed release 40 mg PO QHS 05/22/18 Glucosam/MSM/Chondroit/Vit D3 [Sv Glucosamine Chondroitin Tab] 1 tab PO BID 05/26/18 Red Yeast Rice 1,200 mg PO BID 05/26/18 Calcium Carbonate/Vitamin D3 [Calcium 600 + Vit D Tablet] 1 ea PO DAILY 07/11/18 Cyanocobalamin [Vitamin B12] 1,000 mcg PO DAILY@0800 07/13/18 Lidocaine/Prilocaine [Lidocaine-Prilocaine Cream] 1 applicatio TP DAILY PRN PRN 30 Days #1 tube 07/19/18 Levothyroxine Sodium [Synthroid] 50 mcg PO DAILY 08/22/18 Levothyroxine [Synthroid] 75 mcg PO STANLEY 08/22/18 Metoprolol Succinate [Toprol Xl] 12.5 mg PO DAILY 08/22/18 [place]-3 Fatty Acids/Fish Oil [[place] 3 1,000 mg Softgel] 1 each PO DAILY 08/22/18 Acetaminophen [Tylenol Tablet] 650 mg PO Q6H PRN PRN tablet 08/24/18 Nystatin 500,000 unit PO 4X/DAY 7 Days #1 udc 08/24/18 Following Prescrptions Were Given to Patient: Nystatin 500,000 unit PO 4X/DAY 7 Days #1 [facility] [place] Care Physician: Temi Santos [Primary Care Provider] - Please follow up with your Primary Care Physician in: within 1-2 weeks Please Follow Up With: Cal Kelly MD When: as scheduled Disposition: Home Minutes spent on discharge:: 40 Patient Condition:: Stable Medical Necessity - Tobacco Use Smoking Status: Never smoker Tobacco Use: Non-smoker Meaningful Use Info Meaningful Use Diagnoses (Choose all that apply): None applicable Code Visit Inpatient E&M: 61893 Disch Hosp
[2018-08-24 10:14] LABS: Pathologist Review Reviewed
--- NOTE | 2018-08-24 12:26 | ONC.PN.INPT ---
- Problem List (1) Diarrhea Status: Resolved Qualifiers: (2) Febrile neutropenia Status: Acute (3) Oral candidiasis Status: Acute (4) Breast cancer, right Status: Chronic Comment: High risk for recurrence by Oncotype DX Subjective Date of Service:: 08/24/18 Neutropenic Fever Ms. 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 ER positive (>95%), OH positive (10%), HER2/mirella not amplified. Status post right mastectomy with sentinel lymph node biopsy and an adequate resection margin June 2018. Given Oncotype DX score of 32 indicating a high recurrence risk, commenced with cycle 1 of adjuvant chemotherapy with Taxotere/Cytoxan on 07/25/18, supported with G CSF on day 2. Despite growth factor support, developed fever and was admitted to [facility] for management of febrile neutropenia and pneumonia. Received cycle 2 Taxotere/Cytoxan on 08/16/18, Neulasta administered on 08/17/18. Patient developed fever on 08/19/18 and self administered Tylenol x 4 days. Made oncology aware of fevers 08/22/18, immediately evaluated in clinic. C/o nausea, diarrhea (> 10 episodes on 08/22/18) Found to be severely neutropenic (grade 4) and subsequently sent through [facility] ED for admission. CXR showed no evidence of pneumonia, UA unremarkable and influenza negative. Normotensive, although slightly tachycardic when she was seen in clinic. Lactic acid WNL. Presently patient is receiving broad spectrum atb therapy and supportive care with IVFs and antiemetics. C diff negative, enteric pathogen stool ordered. Blood cultures pending. WBC count has rebounded, ANC 11.8. Afebrile the last 24 hours while on cefepime with out antipyretics. Upon entering the room, patient is side lying in bed comfortably. States I feel better citing resolution of chills/shaking/sweats and diarrhea. Appetite fair-poor, admits to one emesis earlier this morning that occurred subsequent to drinking tomato juice and increased activity. Tolerating Lovenox inj well. Past Medical History: Chronic Problems (Last Reviewed 08/22/18 @ 14:11 by Pamela Noyola) Hx of right mastectomy (Chronic) 06/08/18 Breast cancer, right (Chronic) High risk for recurrence by Oncotype DX History of repair of right rotator cuff (Chronic) MVP (mitral valve prolapse) (Chronic) HTN (hypertension) (Chronic) Hypothyroidism (Chronic) GERD (gastroesophageal reflux disease) (Chronic) History of eye surgery (Chronic) History of back surgery (Chronic) History of cholecystectomy (Chronic) Hemorrhoids (Chronic) Cardiac murmur (Chronic) Breast cancer (Chronic ~04/2018) Past Medical History - Most Recent Inpatient Visit Past Medical History Start: 08/22/18 18:31 Text: Status: Complete Freq: ONCE Protocol: Document 08/22/18 19:06 [facility] [place] (Rec: 08/22/18 19:09 [facility] [id number]) BMI Required to complete PMH What is Patient's BMI 26.2 Past Medical History Unable History Recalled No Query Text:Pt Unable/Family Not Present Neurologic Medical History Hx Stroke/TIA No Hx Dementia/Alzheimer's No Hx Parkinson's Disease No Hx Seizures No Hx Multiple Sclerosis No Hx Migraines Yes: occular migraine Cardiac Medical History VTE Present on Admission No Hx of Deep Vein Thrombosis/VTE/PE No Hx Hypertension No Hx Chest Pain/Angina No Hx Heart Attack No Hx Cardiac Surgery/Stents/Etc. No Hx Heart Failure No Hx Pacemaker/AICD No Hx Irregular Heartbeat and/or Afib No: mvp/tachycardia Hx Anticoagulant Therapy No Query Text:(Coumadin, Aspirin, Plavix, Xarelto, etc.) Hx Pain in Legs when Walking/Leg Cramps Yes: occ cramps Respiratory Medical History Hx COPD No Hx Emphysema No Hx Smoking No Smoking Status Never smoker Hx Tobacco Use in last 12 months No Hx Sleep Apnea No Do you snore loudly (louder than talking No or can be heard through closed doors)? Do you often feel tired/ fatigued/ No sleepy during daytime? Has anyone observed you stop breathing No during sleep? STOP Results Negative GI Medical History Hx Ulcer No: small hiatal hernia Hx Hepatitis No Hx Cirrhosis No Hx GI Bleed No Hx Unplanned Weight Loss Yes Genitourinary Medical History Indwelling Catheter in Place on Arrival/ No Admission Hx Renal Disease No: BLADDER LEAKAGE Hx Dialysis No Musculoskeletal History Hx Arthritis Yes: polymyalgia rhematica Hx Rheumatoid Arthritis No Endocrine Medical History Hx Diabetes No Hx Thyroid Disease Yes: on med Hematologic Medical History Hx of Blood Transfusion No Hx of Transfusion in last 3 Months No Ever experience any problems with No transfusion(s)? Hx of Preganancy in last 3 Months No Nurse Filling Out Transfusion & SGESSEL Questions: Date: 08/22/18 Time: 19:09 Psycho/Social Medical History Hx Depression No Hx Anxiety No Hx Behavior Disorder No Hx Alcohol Use No Hx Substance Use No Other Medical History Hx Blood Disorders No Hx Anemia No Hx Cancer Yes: breast/MASTECTOMY-right 2018 Hx Drug Resistant Organism No Wound/Pressure Injury Present on Arrival No /Admission Query Text:If yes, chart assessment in Shift/Clinical Findings Central Line/PICC/VAD Present on Arrival Yes /Admission Antibiotics within last 7 days? No Comments left sided chest port-last chemo 08-16-18 Risk for Readmission Number of Risk Factors 5 At Risk for Readmission Patient is At Risk For Readmission Patient is eligible for Call Back Y Past Medical History (Last Reviewed 08/22/18 @ 14:11 by Pamela Noyola) Breast cancer, right (Chronic) MVP (mitral valve prolapse) (Chronic) HTN (hypertension) (Chronic) Hypothyroidism (Chronic) GERD (gastroesophageal reflux disease) (Chronic) Hemorrhoids (Chronic) Cardiac murmur (Chronic) Breast cancer (Chronic ~04/2018) PORT PLACEMENT (Acute) Past Surgical History (Last Reviewed 08/22/18 @ 18:10 by GOYO Garcia) Hx of right mastectomy (Chronic) History of repair of right rotator cuff (Chronic) History of eye surgery (Chronic) History of back surgery (Chronic) History of cholecystectomy (Chronic) Maternal Family History: Family History (Last Reviewed 08/22/18 @ 18:38 by GOYO Garcia) Mother Breast cancer Sister Cancer Father Heart disease Paternal Family History: Family History (Last Reviewed 08/22/18 @ 18:38 by GOYO Garcia) Mother Breast cancer Sister Cancer Father Heart disease - Social History Lives: With Family Smoking Status: Never smoker Tobacco Use: Non-smoker Alcohol: None Drugs: None Review of Systems Constitutional:: Reports: Weakness, Fatigue, Appetite change. Denies: Fever, Sweats, Weight loss, Chills Cardiovascular:: Denies: Chest pain, Palpitations, Dyspnea on exertion, Orthopnea, PND, Shortness of breath Respiratory: Denies: Cough, Hemoptysis, Shortness of Breath, Wheezing Gastrointestinal:: Reports: Nausea, Vomiting. Denies: Abdominal pain, Diarrhea - resolved, Constipation, Melena, Hematochezia Genitourinary: Denies: Dysuria, Hematuria, 15, Flank pain Musculoskeletal:: Denies: Back pain, Myalgia, Arthralgia Skin: Denies: Rash, Skin Changes, Wounds Neurological:: Denies: Headache, Dizziness, Numbness, Tingling, Visual changes, Tinnitus, Hearing loss Psychiatric: Denies: Anxiety, Depression, Homicidal Ideations, Suicidal Ideations Vital Signs Height 5 ft 1 in Weight: 138 lb 7.205 oz Weight in Pounds 138.5 lbs Pulse Ox 96 Temperature 98.4 F Pulse Rate 106 Respiratory Rate 18 Blood Pressure 121/49 Blood Pressure Position Semi-Fowlers - Physical Exam General: Alert, Oriented x3, No apparent distress HEENT: Atraumatic, Normocephalic, - - wears glasses Oropharynx:: Negative for: Dry mucosa, Ulcerated lesions Neck:: Supple, Trachea midline. Negative for: JVD, bilateral Cardiac:: Regular rate, Regular rhythm, Normal S1, Normal S2. Negative for: Murmur Lungs: Clear to auscultation, Excusion symmetrical. Negative for: Rhonchi, Wheezes Abdomen:: Bowel sounds x 4, Soft, Non-tender, Non-distended. Negative for: Hepatosplenomegaly Extremities:: Negative for: Cyanosis, Edema Neurological: Neuro grossly intact Skin:: - - Port left upper chest accessed with gripper covered with DSD. Negative for: Lesions, Rash, Petechiae, Ecchymosis Psychiatric:: Appropriate affect, Euthymic Lymphatics:: Negative for: Cervical lymphadenopathy, Supraclavicular lymphadenopathy, Axillary lymphadenopathy Laboratory Data: Microbiology 08/22/18 20:00 C. difficile DNA Amplification - Final Stool 08/22/18 16:00 Influenza Types A,B Direct FA ([facility]INA) - Final Mucosa - Nasopharyngeal Laboratory Tests 08/24/18 Range/Units 06:40 WBC 19.6 H (4.4-11.0) K/mm3 RBC 3.28 L (4.2-5.4) M/mm3 Hgb 10.2 L (12.0-15.0) g/dl Hct 31.4 L (37-47) % MCV 95.7 (81-99) fL MCH 31.1 (27.0-32.0) pg MCHC 32.5 (32-36) g/gl RDW 13.4 (11.6-14.6) % RDW Differential 44.1 H (35.1-43.9) fl Plt Count 165 (150-450) K/mm3 MPV 10.6 (6.2-12.0) fl Neut % (Auto) Not Reportable Absolute Neuts (auto) 11.8 H (2.0-7.7) X10^3/uL Absolute Lymphs (auto) 3.14 (0.83-4.51) X10^3/ul Total Counted 100 (MANUAL DIFF) Neutrophils % (Manual) 56 (47-70) % Band Neutrophils % 4 (0-5) % Lymphocytes % (Manual) 16 L (19-41) % Monocytes % (Manual) 14 H (0-10) % Eosinophils % (Manual) 1 (0-5) % Metamyelocytes % 5 H (0-1) % Myelocytes % 2 H (0-0) Promyelocytes % 2 H (0-0) Nucleated RBCs/100 WBC 1 (0-5) % Diff Path Review Reviewed Platelet Estimate ADEQUATE (ADEQ) Hypochromasia RARE Diagnostic Data: Diagnostic Data Chest X-Ray 08/22/18 15:35 IMPRESSION: Degenerative changes, as described above. No demonstrated acute cardiopulmonary process. Electronically Signed: Nakul Aguero MD at 16:37 EDT , Service support , Assessment and Plan 1. Febrile neutropenia- Neutrophils recovered as evidenced by ANC 11.8, WBC 19.2. Afebrile the last 24 hours without antipyretics. Blood cultures are still pending but expected results this afternoon. As ANC now >1, consider PO atb and discharge if cx negative. 2. Stage I Invasive ductal carcinoma right breast- Received cycle 2/4 Taxotere/Cytoxan on 08/16/18, Neulasta administered on 08/17/18. With future cycles, will dose attenuate agents by 20%. 3. Diarrhea- Improved. Patient produced formed stool this morning. She has been educated to manage diarrhea aggressively with loperamide if reoccurs at home. 4. Oral Candidiasis-Improved. Continue nystatin swish and swallow 4 times daily. 5. CINV- Educated to manage with Zofran ODT at home, avoid greasy/fatty/fried/highly acidic foods. (Emesis this morning occurred subsequent to drinking an entire can of tomato juice) Encouraged small, frequent meals. 6. DVT prophylaxis-Lovenox sc. Platelets are preserved. 7. Generalized weakness- Multifactorial. Patient is amenable to home health assistance that may be available to her as she lives alone. Upon discharge, she is to keep follow up appointment in clinic on 08/28/18. Fabiana Kaplan, [employer]END[employer]CH[employer]IC APPRENTICE[employer], AOCNP Medications: Prescriptions This Visit Medication Instructions Recorded Levothyroxine Sodium [Synthroid] 50 mcg PO DAILY 08/22/18 Levothyroxine [Synthroid] 75 mcg PO STANLEY 08/22/18 Metoprolol Succinate [Toprol Xl] 12.5 mg PO DAILY 08/22/18 [place]-3 Fatty Acids/Fish Oil 1 each PO DAILY 08/22/18 [[place] 3 1,000 mg Softgel] Acetaminophen [Tylenol Tablet] 650 mg PO Q6H PRN PRN tablet 08/24/18 Nystatin 500,000 unit PO 4X/DAY 7 Days #1 08/24/18 [facility] [place] Primary Care Provider: Temi Santos Referring Provider: Harshil Underwood MD
--- NOTE | 2018-08-24 12:36 | PN_ITS ---
- Problem List (1) Diarrhea Status: Resolved Qualifiers: (2) Febrile neutropenia Status: Acute (3) Oral candidiasis Status: Acute (4) Breast cancer, right Status: Chronic Comment: High risk for recurrence by Oncotype DX Subjective Date of Service:: 08/24/18 Neutropenic Fever Ms. 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 ER positive (>95%), PA positive (10%), HER2/mirella not amplified. Status post right mastectomy with sentinel lymph node biopsy and an adequate resection margin June 2018. Given Oncotype DX score of 32 indicating a high recurrence risk, commenced with cycle 1 of adjuvant chemotherapy with Taxotere/Cytoxan on 07/25/18, supported with G CSF on day 2. Despite growth factor support, developed fever and was admitted to [facility] for management of febrile neutropenia and pneumonia. Received cycle 2 Taxotere/Cytoxan on 08/16/18, Neulasta administered on 08/17/18. Patient developed fever on 08/19/18 and self administered Tylenol x 4 days. Made oncology aware of fevers 08/22/18, immediately evaluated in clinic. C/o nausea, diarrhea (> 10 episodes on 08/22/18) Found to be severely neutropenic (grade 4) and subsequently sent through [facility] ED for admission. CXR showed no evidence of pneumonia, UA unremarkable and influenza negative. Normotensive, although slightly tachycardic when she was seen in clinic. Lactic acid WNL. Presently patient is receiving broad spectrum atb therapy and supportive care with IVFs and antiemetics. C diff negative, enteric pathogen stool ordered. Blood cultures pending. WBC count has rebounded, ANC 11.8. Afebrile the last 24 hours while on cefepime with out antipyretics. Upon entering the room, patient is side lying in bed comfortably. States I feel better citing resolution of chills/shaking/sweats and diarrhea. Appetite fair-poor, admits to one emesis earlier this morning that occurred subsequent to drinking tomato juice and increased activity. Tolerating Lovenox inj well. Past Medical History: Chronic Problems (Last Reviewed 08/22/18 @ 14:11 by Pamela Noyola) Hx of right mastectomy (Chronic) 06/08/18 Breast cancer, right (Chronic) High risk for recurrence by Oncotype DX History of repair of right rotator cuff (Chronic) MVP (mitral valve prolapse) (Chronic) HTN (hypertension) (Chronic) Hypothyroidism (Chronic) GERD (gastroesophageal reflux disease) (Chronic) History of eye surgery (Chronic) History of back surgery (Chronic) History of cholecystectomy (Chronic) Hemorrhoids (Chronic) Cardiac murmur (Chronic) Breast cancer (Chronic ~04/2018) Past Medical History - Most Recent Inpatient Visit Past Medical History Start: 08/22/18 18:31 Text: Status: Complete Freq: ONCE Protocol: [place] 08/22/18 19:06 [facility] [place] 08/22/18 19:09 [facility] [id number][place] BMI Required to complete PMH What is Patient's BMI 26.2 Past Medical History Unable History Recalled No Query Text:Pt Unable/Family Not Present Neurologic Medical History Hx Stroke/TIA No Hx Dementia/Alzheimer's No Hx Parkinson's Disease No Hx Seizures No Hx Multiple Sclerosis No Hx Migraines Yes: occular migraine Cardiac Medical History VTE Present on Admission No Hx of Deep Vein Thrombosis/VTE/PE No Hx Hypertension No Hx Chest Pain/Angina No Hx Heart Attack No Hx Cardiac Surgery/Stents/Etc. No Hx Heart Failure No Hx Pacemaker/AICD No Hx Irregular Heartbeat and/or Afib No: mvp/tachycardia Hx Anticoagulant Therapy No Query Text:(Coumadin, Aspirin, Plavix, Xarelto, etc.) Hx Pain in Legs when Walking/Leg Cramps Yes: occ cramps Respiratory Medical History Hx COPD No Hx Emphysema No Hx Smoking No Smoking Status Never smoker Hx Tobacco Use in last 12 months No Hx Sleep Apnea No Do you snore loudly (louder than talking No or can be heard through closed doors)? Do you often feel tired/ fatigued/ No sleepy during daytime? Has anyone observed you stop breathing No during sleep? STOP Results Negative GI Medical History Hx Ulcer No: small hiatal hernia Hx Hepatitis No Hx Cirrhosis No Hx GI Bleed No Hx Unplanned Weight Loss Yes Genitourinary Medical History Indwelling Catheter in Place on Arrival/ No Admission Hx Renal Disease No: BLADDER LEAKAGE Hx Dialysis No Musculoskeletal History Hx Arthritis Yes: polymyalgia rhematica Hx Rheumatoid Arthritis No Endocrine Medical History Hx Diabetes No Hx Thyroid Disease Yes: on med Hematologic Medical History Hx of Blood Transfusion No Hx of Transfusion in last 3 Months No Ever experience any problems with No transfusion(s)? Hx of Preganancy in last 3 Months No Nurse Filling Out Transfusion & SGESSEL Questions: Date: 08/22/18 Time: 19:09 Psycho/Social Medical History Hx Depression No Hx Anxiety No Hx Behavior Disorder No Hx Alcohol Use No Hx Substance Use No Other Medical History Hx Blood Disorders No Hx Anemia No Hx Cancer Yes: breast/MASTECTOMY-right 2018 Hx Drug Resistant Organism No Wound/Pressure Injury Present on Arrival No /Admission Query Text:If yes, chart assessment in Shift/Clinical Findings Central Line/PICC/VAD Present on Arrival Yes /Admission Antibiotics within last 7 days? No Comments left sided chest port-last chemo 08-16-18 Risk for Readmission Number of Risk Factors 5 At Risk for Readmission Patient is At Risk For Readmission Patient is eligible for Call Back Y Past Medical History (Last Reviewed 08/22/18 @ 14:11 by Pamela Noyola) Breast cancer, right (Chronic) MVP (mitral valve prolapse) (Chronic) HTN (hypertension) (Chronic) Hypothyroidism (Chronic) GERD (gastroesophageal reflux disease) (Chronic) Hemorrhoids (Chronic) Cardiac murmur (Chronic) Breast cancer (Chronic ~04/2018) PORT PLACEMENT (Acute) Past Surgical History (Last Reviewed 08/22/18 @ 18:10 by GOYO Garcia) Hx of right mastectomy (Chronic) History of repair of right rotator cuff (Chronic) History of eye surgery (Chronic) History of back surgery (Chronic) History of cholecystectomy (Chronic) Maternal Family History: Family History (Last Reviewed 08/22/18 @ 18:38 by GOYO Garcia) Mother Breast cancer Sister Cancer Father Heart disease Paternal Family History: Family History (Last Reviewed 08/22/18 @ 18:38 by GOYO Garcia) Mother Breast cancer Sister Cancer Father Heart disease - Social History Lives: With Family Smoking Status: Never smoker Tobacco Use: Non-smoker Alcohol: None Drugs: None Review of Systems Constitutional:: Reports: Weakness, Fatigue, Appetite change. Denies: Fever, Sweats, Weight loss, Chills Cardiovascular:: Denies: Chest pain, Palpitations, Dyspnea on exertion, Orthopnea, PND, Shortness of breath Respiratory: Denies: Cough, Hemoptysis, Shortness of Breath, Wheezing Gastrointestinal:: Reports: Nausea, Vomiting. Denies: Abdominal pain, Diarrhea - resolved, Constipation, Melena, Hematochezia Genitourinary: Denies: Dysuria, Hematuria, 15, Flank pain Musculoskeletal:: Denies: Back pain, Myalgia, Arthralgia Skin: Denies: Rash, Skin Changes, Wounds Neurological:: Denies: Headache, Dizziness, Numbness, Tingling, Visual changes, Tinnitus, Hearing loss Psychiatric: Denies: Anxiety, Depression, Homicidal Ideations, Suicidal Ideations Vital Signs Height 5 ft 1 in Weight: 138 lb 7.205 oz Weight in Pounds 138.5 lbs Pulse Ox 96 Temperature 98.4 F Pulse Rate 106 Respiratory Rate 18 Blood Pressure 121/49 Blood Pressure Position Semi-Fowlers - Physical Exam General: Alert, Oriented x3, No apparent distress HEENT: Atraumatic, Normocephalic, - - wears glasses Oropharynx:: Negative for: Dry mucosa, Ulcerated lesions Neck:: Supple, Trachea midline. Negative for: JVD, bilateral Cardiac:: Regular rate, Regular rhythm, Normal S1, Normal S2. Negative for: Murmur Lungs: Clear to auscultation, Excusion symmetrical. Negative for: Rhonchi, Wheezes Abdomen:: Bowel sounds x 4, Soft, Non-tender, Non-distended. Negative for: Hepatosplenomegaly Extremities:: Negative for: Cyanosis, Edema Neurological: Neuro grossly intact Skin:: - - Port left upper chest accessed with gripper covered with DSD. Negative for: Lesions, Rash, Petechiae, Ecchymosis Psychiatric:: Appropriate affect, Euthymic Lymphatics:: Negative for: Cervical lymphadenopathy, Supraclavicular lymphadenopathy, Axillary lymphadenopathy Laboratory Data: Microbiology 08/22/18 20:00 C. difficile DNA Amplification - Final Stool 08/22/18 16:00 Influenza Types A,B Direct FA (BRINA) - Final Mucosa - Nasopharyngeal Laboratory Tests 08/24/18 Range/Units 06:40 WBC 19.6 H (4.4-11.0) K/mm3 RBC 3.28 L (4.2-5.4) M/mm3 Hgb 10.2 L (12.0-15.0) g/dl Hct 31.4 L (37-47) % MCV 95.7 (81-99) fL MCH 31.1 (27.0-32.0) pg MCHC 32.5 (32-36) g/gl RDW 13.4 (11.6-14.6) % RDW Differential 44.1 H (35.1-43.9) fl Plt Count 165 (150-450) K/mm3 MPV 10.6 (6.2-12.0) fl Neut % (Auto) Not Reportable Absolute Neuts (auto) 11.8 H (2.0-7.7) X10^3/uL Absolute Lymphs (auto) 3.14 (0.83-4.51) X10^3/ul Total Counted 100 (MANUAL DIFF) Neutrophils % (Manual) 56 (47-70) % Band Neutrophils % 4 (0-5) % Lymphocytes % (Manual) 16 L (19-41) % Monocytes % (Manual) 14 H (0-10) % Eosinophils % (Manual) 1 (0-5) % Metamyelocytes % 5 H (0-1) % Myelocytes % 2 H (0-0) Promyelocytes % 2 H (0-0) Nucleated RBCs/100 WBC 1 (0-5) % Diff Path Review Reviewed Platelet Estimate ADEQUATE (ADEQ) Hypochromasia RARE Diagnostic Data: Diagnostic Data Chest X-Ray 08/22/18 15:35 IMPRESSION: Degenerative changes, as described above. No demonstrated acute cardiopulmonary process. Electronically Signed: Nakul Aguero MD at 16:37 EDT , Service support , Assessment and Plan 1. Febrile neutropenia- Neutrophils recovered as evidenced by ANC 11.8, WBC 19.2. Afebrile the last 24 hours without antipyretics. Blood cultures are still pending but expected results this afternoon. As ANC now >1, consider PO atb and discharge if cx negative. 2. Stage I Invasive ductal carcinoma right breast- Received cycle 2/4 Taxotere/Cytoxan on 08/16/18, Neulasta administered on 08/17/18. With future cycles, will dose attenuate agents by 20%. 3. Diarrhea- Improved. Patient produced formed stool this morning. She has been educated to manage diarrhea aggressively with loperamide if reoccurs at home. 4. Oral Candidiasis-Improved. Continue nystatin swish and swallow 4 times daily. 5. CINV- Educated to manage with Zofran ODT at home, avoid greasy/fatty/fried/highly acidic foods. (Emesis this morning occurred subsequent to drinking an entire can of tomato juice) Encouraged small, frequent meals. 6. DVT prophylaxis-Lovenox sc. Platelets are preserved. 7. Generalized weakness- Multifactorial. Patient is amenable to home health assistance that may be available to her as she lives alone. Upon discharge, she is to keep follow up appointment in clinic on 08/28/18. Fabiana Kaplan, BUSINESS LIAISON [employer]GER[employer], AOCNP Medications: Prescriptions This Visit Medication Instructions Recorded Levothyroxine Sodium [Synthroid] 50 mcg PO DAILY 08/22/18 Levothyroxine [Synthroid] 75 mcg PO STANLEY 08/22/18 Metoprolol Succinate [Toprol Xl] 12.5 mg PO DAILY 08/22/18 [place]-3 Fatty Acids/Fish Oil 1 each PO DAILY 08/22/18 [[place] 3 1,000 mg Softgel] Acetaminophen [Tylenol Tablet] 650 mg PO Q6H PRN PRN tablet 08/24/18 Nystatin 500,000 unit PO 4X/DAY 7 Days #1 08/24/18 [facility] [place] Care Provider: Temi Santos Referring Provider: Harshil Underwood MD
--- NOTE | 2018-08-24 14:08 | CASEMGMT ---
MARK NEWBY NOTE: Per Fabiana Kaplan note, pt amenable to HHC. MARK NEWBY to room to talk with pt. Confirmed pt has [employer] as her primary insurance. Pt made aware requirements for HHC is that a pt is homebound and discussed what this means. Pt states she is not homebound, that she still works, and is planning on returning to work in a few days. Pt does not qualify for HHC at this time and she was made aware. Pt states she is contacting her nephews to see if she can pick her up to take her home when she is discharged today. MARK Thompson, made aware. Festus BARR RN CM
[2018-08-24 15:49] VITALS: BP 128/57; PULSE 99; RESP 18; TEMP 37.1; O2SAT 97
--- NOTE | 2018-08-24 16:53 | CHAPLAIN ---
Type of Pastoral Visit _x__ Initial Visit ___ Follow-up Visit ___ On-call Visit ___ General Patient Visit ___ Spiritual Assessment ___ Family Conference ___ Bereavement ___ Rapid Response ___ Code Blue ___ Other (describe below) Pastoral Care Referral From _x__ Patient ___ Family ___ Nurse ___ Physician ___ [place] ___ Refueler ___ Other (describe below) Sacrament/Intervention _x__ Active listening ___ Anointing ___ Evangelical ___ Bereavement ___ Communion _x__ Esme exploration ___ _x__ Life review _x__ Prayer ___ Reconciliation ___ Sacrament of Sick _x__ Supportive presence ___ Wedding ___ Other (describe below) Pastoral Comments
--- NOTE | 2018-08-25 10:41 | CASEMGMT ---
MARK NEWBY DC PHONE CALL DC DATE: 08/24/18 DC Disposition: Home LACE/STRATA: 03/08 Intro role of CM to patient via phone. She states she is improving, but still short of breath when she engages in activity. She spoke with oncology dept yesterday and has next appt set up. MARK NEWBY encouraged her to also contact PCP for f/u. -States her care was very good and the nurses were excellent. MARK NEWBY voiced appreciation for her comments and using [facility]. -No further questions noted. Romulo ALVESN RN ACM
== END 2018-08-24 18:30 | disposition home or self-care (01) | DRG 809 ==
LOC: ED 16:05 → MS2 18:19
PROVIDERS: Nurse Practitioner Family; Admitting Provider Family Medicine; Emergency Provider Emergency Medicine; Family Provider Internal Medicine; PCP Internal Medicine; Referring Provider Family Medicine; Visit Provider Internal Medicine
DX: D70.9 Neutropenia, unspecified (principal); B37.0 Candidal stomatitis; E44.0 Moderate protein-calorie malnutrition; R50.81 Fever presenting with conditions classified elsewhere; C50.911 Malignant neoplasm of unspecified site of right female breast; E03.9 Hypothyroidism, unspecified; I10 Essential (primary) hypertension; R19.7 Diarrhea, unspecified; K21.9 Gastro-esophageal reflux disease without esophagitis; I34.1 Nonrheumatic mitral (valve) prolapse; Z90.11 Acquired absence of right breast and nipple; Z68.26 Body mass index [BMI] 26.0-26.9, adult; Z17.0 Estrogen receptor positive status [ER+]; Z90.49 Acquired absence of other specified parts of digestive tract; K64.9 Unspecified hemorrhoids
CPT/HCPCS: 36591; 71045; 80048; 81001; 83605; 85025; 87040; 87493; 87804; 97802; 99281; J2185; J7030; J2405

== ENCOUNTER → 2019-04-04 08:00 | Outpatient (CLI) | payer MEDICARE, OTHER, SELFPAY ==
[2018-12-19 14:57] VITALS: BMI 27.1
[2019-02-27 12:50] VITALS: BMI 27.1
--- NOTE | 2019-04-04 08:02 | BI_ITS ---
MAMMOGRAPHY - UNILATERAL SCREENING: LEFT BREAST REASON FOR EXAM: Female, 73 years old. Routine annual screening examination (unilateral). PERTINENT HISTORY: Personal history of breast cancer. Prior right mastectomy and chemotherapy. Prior right stereotactic breast biopsy. Mother with breast cancer. TECHNIQUE: Digital unilateral breast jose elias (3D mammographic acquisition) in the CC and MLO projections. 2-D mediolateral oblique (MLO) and craniocaudad (CC) views of both breasts were obtained. CAD: Full Field Digital Mammography with Computer Added Detection was performed. COMPARISON: Comparison is made with prior study dated April 20, 2017. FINDINGS: Breast Composition: The breasts are heterogeneously dense, which may obscure small masses. There are no dominant masses or suspicious calcifications. No other significant abnormalities are identified. There has been no significant change since the prior study. BI/SCREEN MAMM (CAD) W/JOSE ELIAS UNI L IMPRESSION: Stable unilateral screening mammogram. Yearly follow-up mammogram recommended. (A) ASSESSMENT CATEGORY: BIRADS Category 2: Benign. A letter regarding these results will be sent to the patient by the facility within 30 days. Approximately 10% of breast cancers are not detected by mammography. A normal mammogram should not delay biopsy of a clinically suspicious abnormality. [id number] Electronically Signed: Star Salas, at 10:33 EDT , Service support ,
== END ==
PROVIDERS: Family Provider Internal Medicine; PCP Internal Medicine; Referring Provider Surgery; Visit Provider Surgery
DX: Z12.31 Encounter for screening mammogram for malignant neoplasm of breast (principal); R92.2 Inconclusive mammogram
CPT/HCPCS: 77061; 77063; 77067; G0279

== ENCOUNTER → 2019-10-05 09:53 | Outpatient (CLI) | payer MEDICARE, OTHER, SELFPAY ==
[2019-09-18 13:35] VITALS: BMI 27.3
--- NOTE | 2019-10-05 09:54 | MRI_ITS ---
STUDY: BILATERAL BREAST MR WITHOUT AND WITH CONTRAST REASON FOR EXAM: Female, 74 years old. History of right breast cancer status post mastectomy and chemotherapy in 2019. History of breast cancer in mother at age 52. Follow-up of left breast. TECHNIQUE: Multi-sequence multi-echo imaging of both breasts was performed with a dedicated breast coil. T1-weighted and T2-weighted images were performed before the administration of contrast. T1-weighted images were also performed after the administration of 13 mL of Dotarem contrast without complications. COMPARISON: Left mammogram dated April 04, 2019. Bilateral diagnostic mammogram dated March 28, 2018. FINDINGS: RIGHT BREAST: Postmastectomy changes are noted on the right. There are no abnormal enhancing masses or areas of non-mass enhancement in the right breast. LEFT BREAST: The breast tissue is fatty with minimal background enhancement. There are no abnormal enhancing masses or areas of non-mass enhancement in the left breast. There are no enlarged or abnormal lymph nodes. There is no abnormality in the visualized regions of the chest or liver. MRI/Breast Bilateral W/O and W IMPRESSION: Right mastectomy changes. Normal left breast. Yearly follow-up screening mammogram would be appropriate. CATEGORY: BIRADS Category 2: Benign. A letter regarding these results will be sent to the patient by the facility within 30 days. Electronically Signed: Michael Perera MD at 13:08 EDT , Service support ,
[2019-10-05 11:05] LABS: CREATININE FINGERSTICK 0.8 mg/dL (0.55-1.02); EGFR FINGERSTICK > 60.0000 mL/min (>60)
== END ==
PROVIDERS: PCP Internal Medicine; Referring Provider Internal Medicine Hematology & Oncology; Visit Provider Internal Medicine Hematology & Oncology
DX: C50.919 Malignant neoplasm of unspecified site of unspecified female breast (principal); Z90.11 Acquired absence of right breast and nipple; Z15.01 Genetic susceptibility to malignant neoplasm of breast; Z85.3 Personal history of malignant neoplasm of breast
CPT/HCPCS: 77049; A9575; A4216; C8908

== ENCOUNTER → 2020-04-09 07:18 | Outpatient (CLI) | payer MEDICARE, OTHER, SELFPAY ==
[2019-12-18 13:49] VITALS: BMI 28.0
--- NOTE | 2020-04-09 07:18 | BI_ITS ---
MAMMOGRAPHY - UNILATERAL SCREENING: LEFT BREAST REASON FOR EXAM: Female, 74 years old. Routine annual screening examination (unilateral). PERTINENT HISTORY: Personal history of breast cancer. History of prior mastectomy and chemotherapy. Mother with breast cancer. TECHNIQUE: Digital unilateral breast jose elias (3D mammographic acquisition) in the CC and MLO projections. 2-D mediolateral oblique (MLO) and craniocaudad (CC) views of both breasts were obtained. CAD: Full Field Digital Mammography with Computer Added Detection was performed. COMPARISON: Comparison is made with prior mammogram dated 04/04/2019 and prior MRI of the breast dated 10/05/2019. FINDINGS: Breast Composition: The breasts are heterogeneously dense, which may obscure small masses. There are no dominant masses or suspicious calcifications. No other significant abnormalities are identified. There has been no significant change since the prior study. BI/SCREEN MAMM (CAD) W/JOSE ELIAS UNI L IMPRESSION: Stable unilateral screening mammogram. Yearly follow-up mammogram recommended. (A) ASSESSMENT CATEGORY: BIRADS Category 2: Benign. A letter regarding these results will be sent to the patient by the facility within 30 days. Approximately 10% of breast cancers are not detected by mammography. A normal mammogram should not delay biopsy of a clinically suspicious abnormality. [id number] Electronically Signed: Star Salas, at 8:28 EST , Service support ,
== END ==
PROVIDERS: PCP Internal Medicine; Referring Provider Internal Medicine Hematology & Oncology; Visit Provider Internal Medicine Hematology & Oncology
DX: Z12.31 Encounter for screening mammogram for malignant neoplasm of breast (principal); C50.911 Malignant neoplasm of unspecified site of right female breast; Z90.11 Acquired absence of right breast and nipple
CPT/HCPCS: 77063; 77067

== ENCOUNTER → 2020-12-04 10:12 | Outpatient (CLI) | payer MEDICARE, OTHER, SELFPAY ==
[2020-06-19 13:25] VITALS: BMI 28.7
--- NOTE | 2020-12-04 10:25 | BD_ITS ---
STUDY: DUAL ENERGY X-RAY ABSORPTIOMETRY / DXA REASON FOR EXAM: Female, 75 years old. 733.00OsteoporosisBONE DENSITY REASON FOR EXAM TECHNIQUE: Bone Mineral Density (BMD) measurements of lumbar spine and bilateral hips were obtained. COMPARISON: None. FINDINGS: Lumbar Spine (L1-L4): g/cm2 (1.133) / T-score (-0.3) / Z-score (1.5) Findings are suggestive of normal bone density with a low fracture risk. Increased kyphosis. Left Femur Total: g/cm2 (0.979) / T-score (-0.2) / Z-score (1.6) Left Femoral Neck: g/cm2 (0.818) / T-score (-1.6) / Z-score (0.4) Right Femur Total: g/cm2 (1.019) / T-score (0.1) / Z-score (1.9) Right Femoral Neck: g/cm2 (0.905) / T-score (-1.0) / Z-score (1.0) BD/Dexa Bone Density Study IMPRESSION: The patient is considered osteopenic as outlined below according to World Rohan Organization (WHO) criteria with a moderate fracture risk. Reference Information: The T-score is the number of standard deviations above or below the standard which is normal for young adults at their peak bone mineral density. The World Health Organization (WHO) interprets the T-scores as follows: Above -1 Normal bone density Between -1 and -2.5 Osteopenia Equal to / or below -2.5 Osteoporosis As a practical clinical guideline, osteopenia may be graded as follows: Mild -1 through -1.5 Moderate -1.6 through -2.0 Severe -2.1 through -2.4 The Z-score is the number of standard deviations above or below age-matched controls. A Z-score of less than -1.5 would be considered abnormal. References: 1. NIH Osteoporosis and Related Bone Diseases www osteo.org 2. International Society for Clinical Densitometry www iscd.org 3. National Osteoporosis Foundation www nof.org Electronically Signed: Star Salas MD at 15:32 EDT , Service support ,
== END ==
PROVIDERS: PCP Internal Medicine; Referring Provider Internal Medicine Hematology & Oncology; Visit Provider Internal Medicine Hematology & Oncology
DX: C50.911 Malignant neoplasm of unspecified site of right female breast (principal); C50.919 Malignant neoplasm of unspecified site of unspecified female breast; Z79.811 Long term (current) use of aromatase inhibitors; Z13.820 Encounter for screening for osteoporosis; M81.0 Age-related osteoporosis without current pathological fracture
CPT/HCPCS: 77080

== ENCOUNTER → 2020-12-10 10:17 | Outpatient (CLI) | payer MEDICARE, OTHER, SELFPAY ==
[2020-06-19 13:25] VITALS: BMI 28.7
--- NOTE | 2020-12-10 10:23 | MRI_ITS ---
STUDY: BILATERAL BREAST MR WITHOUT AND WITH CONTRAST REASON FOR EXAM: Female, 75 years old. Breast cancer, previous right mastectomy. Status post chemotherapy ending in 10/23/2018. TECHNIQUE: Multi-sequence multi-echo imaging of both breasts was performed with a dedicated breast coil. T1-weighted and T2-weighted images were performed before the administration of contrast. T1-weighted images were also performed after the administration of 14 ml of Dotarem contrast without complications. COMPARISON: Left mammogram dated 04/09/2020. Prior breast MR dated 10/05/2019. FINDINGS: RIGHT BREAST: Changes of right mastectomy. No enhancing lesions. LEFT BREAST: The breast tissue is scattered fibroglandular densities with minimal background enhancement. There are no abnormal enhancing masses or areas of non-mass enhancement in the left breast. There are no enlarged or abnormal lymph nodes. There is no abnormality in the visualized regions of the chest or liver. MRI/Breast Bilateral W/O and W IMPRESSION: Changes of right mastectomy with no complicating features identified. Normal left breast. Follow-up annual screening mammogram of the left breast recommended. CATEGORY: BIRADS Category 2: Benign. A letter regarding these results will be sent to the patient by the facility within 30 days. Electronically Signed: Michael Perera MD at 10:02 EDT , Service support ,
== END ==
PROVIDERS: PCP Internal Medicine; Referring Provider Internal Medicine Hematology & Oncology; Visit Provider Internal Medicine Hematology & Oncology
DX: C50.911 Malignant neoplasm of unspecified site of right female breast (principal); Z15.09 Genetic susceptibility to other malignant neoplasm
CPT/HCPCS: 77049; A9575; A4216; C8908

== ENCOUNTER → 2021-04-10 09:43 | Outpatient (CLI) | payer MEDICARE, OTHER, SELFPAY ==
[2020-12-15 10:48] VITALS: BMI 29.6
--- NOTE | 2021-04-10 09:46 | BI_ITS ---
MAMMOGRAPHY - UNILATERAL SCREENING: LEFT BREAST REASON FOR EXAM: Female, 75 years old. Routine annual screening examination (unilateral). PERTINENT HISTORY: Personal history of breast cancer. Prior right mastectomy. Mother with breast cancer. TECHNIQUE: Digital unilateral breast jose elias (3D mammographic acquisition) in the CC and MLO projections. 2-D mediolateral oblique (MLO) and craniocaudad (CC) views of both breasts were obtained. CAD: Full Field Digital Mammography with Computer Added Detection was performed. COMPARISON: Comparison is made with prior study 04/19/2020 and 04/04/2019. FINDINGS: Breast Composition: The breasts are heterogeneously dense, which may obscure small masses. There are no dominant masses or suspicious calcifications. No other significant abnormalities are identified. There has been no significant change since the prior study. BI/SCREEN MAMM (CAD) W/JOSE ELIAS UNI L IMPRESSION: Stable unilateral screening mammogram. Yearly follow-up mammogram recommended. (A) ASSESSMENT CATEGORY: BIRADS Category 1: Negative. A letter regarding these results will be sent to the patient by the facility within 30 days. Approximately 10% of breast cancers are not detected by mammography. A normal mammogram should not delay biopsy of a clinically suspicious abnormality. [id number] Electronically Signed: Star Salas MD at 11:05 EDT , Service support ,
== END ==
PROVIDERS: PCP Internal Medicine; Referring Provider Internal Medicine Hematology & Oncology; Visit Provider Internal Medicine Hematology & Oncology
DX: C50.311 Malignant neoplasm of lower-inner quadrant of right female breast (principal); Z17.0 Estrogen receptor positive status [ER+]; Z90.11 Acquired absence of right breast and nipple; Z12.31 Encounter for screening mammogram for malignant neoplasm of breast
CPT/HCPCS: 77063; 77067

== ENCOUNTER → 2021-12-15 | Outpatient (CLI) | payer MEDICARE, OTHER, SELFPAY ==
--- NOTE | 2021-12-15 10:30 | MRI_ITS ---
STUDY: BILATERAL BREAST MR WITHOUT AND WITH CONTRAST REASON FOR EXAM: Female, 76 years old. History of right breast cancer status post mastectomy. High risk genetics. TECHNIQUE: Multi-sequence multi-echo imaging of both breasts was performed with a dedicated breast coil. T1-weighted and T2-weighted images were performed before the administration of contrast. T1-weighted images were also performed after the intravenous administration of 14 mL of Dotarem contrast. COMPARISON: Screening mammogram dated 10/08/2020 and 04/10/2021. Prior MRI of the breasts dated 12/10/2020. FINDINGS: RIGHT BREAST: Postmastectomy changes are noted on the right. There are no abnormal enhancing masses or areas of non-mass enhancement in the right breast. LEFT BREAST: The breast tissue is fatty with minimal background enhancement. There are no abnormal enhancing masses or areas of non-mass enhancement in the left breast. There are no enlarged or abnormal lymph nodes. There is no abnormality in the visualized regions of the chest or liver. MRI/Breast Bilateral W/O and W IMPRESSION: Changes of right mastectomy. Normal left breast. Yearly follow-up screening mammogram would be appropriate. Electronically Signed: Michael Perera MD at 10:00 EDT ,
[2021-12-15 11:01] LABS: CREATININE FINGERSTICK < 0.9 mg/dL (0.55-1.02); EGFR FINGERSTICK > 60.0000 mL/min (>60)
== END | disposition home or self-care (01) ==
LOC: MRI 10:06
PROVIDERS: PCP Internal Medicine; Referring Provider Internal Medicine Hematology & Oncology; Visit Provider Internal Medicine Hematology & Oncology
DX: C50.911 Malignant neoplasm of unspecified site of right female breast (principal); Z15.09 Genetic susceptibility to other malignant neoplasm
CPT/HCPCS: 77049; A9575; A4216; C8908

== ENCOUNTER → 2022-02-17 | Outpatient (CLI) | payer MEDICARE, OTHER, SELFPAY | END | disposition home or self-care (01) | LOC: LABSPEC 11:45 | PROVIDERS: PCP Internal Medicine; Visit Provider Student in an Organized Health Care Education/Training Program | DX: N39.0 Urinary tract infection, site not specified (principal) | CPT/HCPCS: 87086 ==

== ENCOUNTER → 2022-04-12 | Outpatient (CLI) | payer MEDICARE, OTHER, SELFPAY ==
--- NOTE | 2022-04-12 08:59 | BI_ITS ---
MAMMOGRAPHY - UNILATERAL SCREENING: LEFT BREAST REASON FOR EXAM: Female, 76 years old. Routine annual screening examination (unilateral). PERTINENT HISTORY: Personal history of breast cancer. Prior right mastectomy. Mother with breast cancer. TECHNIQUE: Digital unilateral breast jose elias (3D mammographic acquisition) in the CC and MLO projections. 2-D mediolateral oblique (MLO) and craniocaudad (CC) views of both breasts were obtained. CAD: Full Field Digital Mammography with Computer Added Detection was performed. COMPARISON: Comparison is made with prior study dated 04/10/2021 and 04/09/2020. FINDINGS: Breast Composition: There are scattered areas of fibroglandular density. There are no dominant masses or suspicious calcifications. No other significant abnormalities are identified. There has been no significant change since the prior study. BI/SCREEN MAMM (CAD) W/JOSE ELIAS UNI L IMPRESSION: Stable unilateral screening mammogram. Yearly follow-up mammogram recommended. (A) ASSESSMENT CATEGORY: BIRADS Category 2: Benign. A letter regarding these results will be sent to the patient by the facility within 30 days. Approximately 10% of breast cancers are not detected by mammography. A normal mammogram should not delay biopsy of a clinically suspicious abnormality. [id number] Electronically Signed: Star Salas MD at 9:48 EST ,
== END | disposition home or self-care (01) ==
LOC: OPBI 08:58
PROVIDERS: PCP Internal Medicine; Visit Provider Internal Medicine Hematology & Oncology
DX: Z12.31 Encounter for screening mammogram for malignant neoplasm of breast (principal); Z80.3 Family history of malignant neoplasm of breast; Z85.3 Personal history of malignant neoplasm of breast; Z90.11 Acquired absence of right breast and nipple
CPT/HCPCS: 77063; 77067

== ENCOUNTER → 2022-12-22 | Outpatient (CLI) | payer MEDICARE, OTHER, SELFPAY ==
--- NOTE | 2022-12-22 09:19 | BD_ITS ---
STUDY: DUAL ENERGY X-RAY ABSORPTIOMETRY / DXA REASON FOR EXAM: Female, 77 years old. SCREENING TECHNIQUE: Bone Mineral Density (BMD) measurements of lumbar spine and bilateral hips were obtained. COMPARISON: Comparison is made with prior study dated December 04, 2020. FINDINGS: Lumbar Spine (L1-L4): g/cm2 (1.081) / T-score (0.9) / Z-score (3.4) Findings are suggestive of normal bone density with a low fracture risk. Left Femur Total: g/cm2 (0.927) / T-score (-0.1) / Z-score (1.9) Left Femoral Neck: g/cm2 (0.704) / T-score (-1.3) / Z-score (0.9) Right Femur Total: g/cm2 (0.976) / T-score (0.3) / Z-score (2.3) Right Femoral Neck: g/cm2 (0.743) / T-score (-1.0) / Z-score (1.3) The T-Scores on the most recent prior examination were: Lumbar Spine (L1-L4): There has been improvement of bone density since the previous examination. Left Femur Total: which represents an improvement of 1.5%. Right Femur Total: which represents a worsening of 2.5%. BD/Dexa Bone Density Study IMPRESSION: The patient is considered osteopenic as outlined below according to World Rohan Organization (WHO) criteria with a low fracture risk. There has been improvement of bone density since the previous examination. Reference Information: The T-score is the number of standard deviations above or below the standard which is normal for young adults at their peak bone mineral density. The World Health Organization (WHO) interprets the T-scores as follows: Above -1 Normal bone density Between -1 and -2.5 Osteopenia Equal to / or below -2.5 Osteoporosis As a practical clinical guideline, osteopenia may be graded as follows: Mild -1 through -1.5 Moderate -1.6 through -2.0 Severe -2.1 through -2.4 The Z-score is the number of standard deviations above or below age-matched controls. A Z-score of less than -1.5 would be considered abnormal. References: 1. NIH Osteoporosis and Related Bone Diseases www osteo.org 2. International Society for Clinical Densitometry www iscd.org 3. National Osteoporosis Foundation www nof.org Electronically Signed: Star Salas MD at 10:02 EDT ,
--- NOTE | 2022-12-22 09:43 | MRI_ITS ---
STUDY: BILATERAL BREAST MR WITHOUT AND WITH CONTRAST REASON FOR EXAM: Female, 77 years old. Follow-up of breast cancer status post mastectomy. TECHNIQUE: Multi-sequence multi-echo imaging of both breasts was performed with a dedicated breast coil. T1-weighted and T2-weighted images were performed before the administration of contrast. T1-weighted images were also performed after the intravenous administration of 14 mL of Clariscan contrast. COMPARISON: Prior mammograms dated April 10, 2021 and April 12, 2022. Prior breast MRI with contrast dated December 15 FINDINGS: RIGHT BREAST: Changes of right mastectomy. No enhancing lesions. LEFT BREAST: The breast tissue is scattered fibroglandular densities with minimal background enhancement. There are no abnormal enhancing masses or areas of non-mass enhancement in the left breast. There are no enlarged or abnormal lymph nodes. There is no abnormality in the visualized regions of the chest or liver. MRI/Breast Bilateral W/O and W IMPRESSION: Stable changes of right mastectomy with no complicating features identified. Normal left breast. Follow-up annual screening mammogram of the left breast recommended. CATEGORY: BIRADS Category 2: Benign. A letter regarding these results will be sent to the patient by the facility within 30 days. Electronically Signed: Michael Perera MD at 11:59 EDT ,
== END | disposition home or self-care (01) ==
LOC: OPBD 09:09
PROVIDERS: PCP Internal Medicine; Referring Provider Internal Medicine Hematology & Oncology; Visit Provider Internal Medicine Hematology & Oncology
DX: C50.311 Malignant neoplasm of lower-inner quadrant of right female breast (principal); Z17.0 Estrogen receptor positive status [ER+]; M85.89 Other specified disorders of bone density and structure, multiple sites
CPT/HCPCS: 77049; 77080; A9575; A4216; C8908

== ENCOUNTER → 2023-03-08 | Outpatient (CLI) | payer MEDICARE, OTHER, SELFPAY ==
--- NOTE | 2023-03-08 18:36 | CT_ITS ---
INDICATION: right sided rib pain,SOB, h/o breast ca EXAMINATION: CT CHEST WITH CONTRAST - CT Chest W/ Contrast Injection TECHNIQUE: Helically acquired images were obtained of the chest following IV contrast. A radiation dose optimization technique was used for this scan. IV Contrast dosage and agent: 100 mL of Isovue-370 RADIATION DOSAGE (If Supplied By Facility): CTDIvol = ( 16.53 ) mGy, DLP = ( 395.18 ) mGycm COMPARISON: Prior study dated: Chest radiograph 08/22/2018 FINDINGS: LUNGS, PLEURA AND LARGE AIRWAYS: The central airways are patent. There is no consolidation or mass. Bandlike left lower lobe atelectasis/scarring. Minimal groundglass opacity in the lungs is likely atelectatic. Calcified granuloma of the left upper lobe anteriorly. Mild pleural thickening at both lung apices. No pleural effusion. No pneumothorax. THYROID: No thyroid lesions. HEART AND PERICARDIUM: Heart size is normal. No pericardial effusion. VESSELS: Thoracic aorta is not dilated. No aortic dissection. No obvious central pulmonary embolism although this study was not performed with the pulmonary embolism protocol. MEDIASTINUM AND ASHANTI: No mediastinal or hilar adenopathy. Esophagus is unremarkable. No hiatal hernia. CHEST WALL: Right-sided mastectomy. No axillary lymphadenopathy. UPPER ABDOMEN: No acute pathology. BONES: No suspicious lytic or blastic abnormality. Degenerative changes are seen throughout the spine. No fractures are seen. CT/Chest WITH Contrast IMPRESSION: No acute findings. No acute pulmonary finding. No focal rib abnormality. Electronically Signed: Alexx Bauer MD at 19:50 EDT ,
== END | disposition home or self-care (01) ==
LOC: CT 18:33
PROVIDERS: PCP Internal Medicine; Visit Provider Nurse Practitioner Family
DX: R07.81 Pleurodynia (principal); R06.00 Dyspnea, unspecified
CPT/HCPCS: 71260; Q9967

== ENCOUNTER → 2023-05-23 | Outpatient (CLI) | payer MEDICARE, OTHER, SELFPAY ==
--- NOTE | 2023-05-23 10:09 | BI_ITS ---
MAMMOGRAPHY - UNILATERAL SCREENING: LEFT BREAST REASON FOR EXAM: Female, 77 years old. Routine annual screening examination (unilateral). PERTINENT HISTORY: Personal history of breast cancer. Prior right mastectomy. Sr. with breast cancer. Mother with breast cancer. TECHNIQUE: Digital unilateral breast jose elias (3D mammographic acquisition) in the CC and MLO projections. 2-D mediolateral oblique (MLO) and craniocaudad (CC) views of both breasts were obtained. CAD: Full Field Digital Mammography with Computer Added Detection was performed. COMPARISON: Comparison is made with prior study April 12, 2022 and April 10, 2021. FINDINGS: Breast Composition: There are scattered areas of fibroglandular density. There are no dominant masses or suspicious calcifications. No other significant abnormalities are identified. There has been no significant change since the prior study. BI/SCREEN MAMM (CAD) W/JOSE ELIAS UNI L IMPRESSION: Stable unilateral screening mammogram. Yearly follow-up mammogram recommended. (A) ASSESSMENT CATEGORY: BIRADS Category 1: Negative. A letter regarding these results will be sent to the patient by the facility within 30 days. Approximately 10% of breast cancers are not detected by mammography. A normal mammogram should not delay biopsy of a clinically suspicious abnormality. [id number] Electronically Signed: Star Salas MD at 10:59 EST ,
== END | disposition home or self-care (01) ==
PROVIDERS: PCP Internal Medicine; Referring Provider Internal Medicine Hematology & Oncology; Visit Provider Internal Medicine Hematology & Oncology
DX: C50.911 Malignant neoplasm of unspecified site of right female breast (principal); Z12.31 Encounter for screening mammogram for malignant neoplasm of breast
CPT/HCPCS: 77063; 77067

== ENCOUNTER → 2023-09-26 | Outpatient (CLI) | payer MEDICARE, OTHER, SELFPAY ==
--- NOTE | 2023-09-26 10:53 | US_ITS ---
STUDY: ULTRASOUND BREAST - LEFT REASON FOR EXAM: Female, 78 years old. Left breast pain. Status post right mastectomy for breast cancer. TECHNIQUE: Axial and longitudinal images of the LEFT breast were performed with a high resolution ultrasound transducer. # OF IMAGES: 97 COMPARISON: Comparison is made with prior mammogram dated May 23, 2023. FINDINGS: LEFT Breast: The entire left breast was examined with ultrasound. No sonographic abnormality is seen. US/Breast Complete Unilateral IMPRESSION: No sonographic abnormality is seen. ASSESSMENT CATEGORY: BIRADS Category 1: Negative. A letter regarding these results will be sent to the patient by the facility within 30 days. Electronically Signed: Star Salas MD at 15:07 EDT ,
== END | disposition home or self-care (01) ==
LOC: OPUS 10:53
PROVIDERS: PCP Internal Medicine; Referring Provider Nurse Practitioner Family; Visit Provider Nurse Practitioner Family
DX: N64.4 Mastodynia (principal)
CPT/HCPCS: 76641

== ENCOUNTER → 2024-01-02 | Outpatient (CLI) | payer MEDICARE, OTHER, SELFPAY ==
--- NOTE | 2024-01-02 10:15 | MRI_ITS ---
STUDY: BILATERAL BREAST MR WITHOUT AND WITH CONTRAST REASON FOR EXAM: Female, 78 years old. History of breast cancer status post right mastectomy. TECHNIQUE: Multi-sequence multi-echo imaging of both breasts was performed with a dedicated breast coil. T1-weighted and T2-weighted images were performed before the administration of contrast. T1-weighted images were also performed after the intravenous administration of 15 cc of Clariscan contrast. COMPARISON: Ultrasound of the right breast dated September 26, 2023, screening mammogram dated May 23, 2023 and MRI of the breast with contrast dated December 22, 2022 FINDINGS: RIGHT BREAST: Changes of right mastectomy. No enhancing lesions or other abnormality. LEFT BREAST: Fatty replaced breasts with minimal background enhancement. No abnormal enhancing masses or areas of non-mass enhancement in the left breast. No enlarged or abnormal lymph nodes. No abnormality in the visualized regions of the chest or liver. MRI/Breast Bilateral W/O and W IMPRESSION: Stable changes of right mastectomy with abnormality of the mastectomy site or chest wall. No abnormality of the left breast. Follow-up annual screening mammogram of the left breast which may be alternated with screening mammogram is recommended. CATEGORY: BIRADS Category 2: Benign. A letter regarding these results will be sent to the patient by the facility within 30 days. Electronically Signed: Michael Perera MD at 7:08 EDT ,
[2024-01-02 10:54] LABS: CREATININE FINGERSTICK < 1.0 mg/dL (0.55-1.02); EGFR FINGERSTICK > 60.0000 mL/min (>60)
== END | disposition home or self-care (01) ==
LOC: MRI 10:12
PROVIDERS: PCP Internal Medicine; Referring Provider Internal Medicine Hematology & Oncology; Visit Provider Internal Medicine Hematology & Oncology
DX: Z01.812 Encounter for preprocedural laboratory examination (principal); C50.311 Malignant neoplasm of lower-inner quadrant of right female breast; Z17.0 Estrogen receptor positive status [ER+]
CPT/HCPCS: 77049; A9575; A4216; C8908

== ENCOUNTER → 2024-05-24 | Outpatient (CLI) | payer MEDICARE, OTHER, SELFPAY ==
--- NOTE | 2024-05-24 09:26 | BI_ITS ---
MAMMOGRAPHY - UNILATERAL SCREENING: LEFT BREAST REASON FOR EXAM: Female, 78 years old. Routine annual screening examination (unilateral). PERTINENT HISTORY: Personal history of breast cancer. Prior right mastectomy. Mother with breast cancer. TECHNIQUE: Digital unilateral breast jose elias (3D mammographic acquisition) in the CC and MLO projections. 2-D mediolateral oblique (MLO) and craniocaudad (CC) views of both breasts were obtained. CAD: Full Field Digital Mammography with Computer Added Detection was performed. COMPARISON: Comparison is made with prior study dated May 23, 2023 and April 12, 2022. FINDINGS: Breast Composition: There are scattered areas of fibroglandular density. There are no dominant masses or suspicious calcifications. No other significant abnormalities are identified. There has been no significant change since the prior study. BI/SCREEN MAMM (CAD) W/JOSE ELIAS UNI L IMPRESSION: Stable unilateral screening mammogram. Yearly follow-up mammogram recommended. (A) ASSESSMENT CATEGORY: BIRADS Category 2: Benign. A letter regarding these results will be sent to the patient by the facility within 30 days. Approximately 10% of breast cancers are not detected by mammography. A normal mammogram should not delay biopsy of a clinically suspicious abnormality. [id number] Electronically Signed: Star Salas MD at 10:23 EST ,
== END | disposition home or self-care (01) ==
LOC: OPBI 09:25
PROVIDERS: PCP Internal Medicine; Referring Provider Internal Medicine Hematology & Oncology; Visit Provider Internal Medicine Hematology & Oncology
DX: Z12.31 Encounter for screening mammogram for malignant neoplasm of breast (principal)
CPT/HCPCS: 77063; 77067

== ENCOUNTER → 2024-12-25 | Outpatient (CLI) | payer MEDICARE, OTHER, SELFPAY ==
--- NOTE | 2024-12-25 09:17 | MRI_ITS ---
PROCEDURE: BREAST BILATERAL W/O AND W 12/25/2024 REASON FOR EXAM: BREAST SCREEN HIGH RISK TECHNIQUE: BREAST BILATERAL W/O AND W CONTRAST: 13 ml Clariscan COMPARISON: Prior exams were compared FINDINGS: TISSUE DENSITY: There are scattered areas of fibroglandular density. Background Parenchymal Enhancement: Moderate. This may decrease the sensitivity of breast MRI. RIGHT Breast: Status post right mastectomy LEFT Breast: No suspicious mass or non-mass enhancement. Other Findings: No suspicious axillary or internal mammary lymph nodes. MRI/Breast Bilateral W/O and W IMPRESSION: No MRI evidence of malignancy in the left breast. Status post right mastectomy . Patient will be due for annual screening mammography in May 2025. OVERALL FINAL ASSESSMENT BI-RADS 2: BENIGN RECOMMENDATION: Routine annual follow-up in 1 Year Reading Location: [id number]
--- NOTE | 2024-12-25 09:19 | BD_ITS ---
PROCEDURE: DEXA BONE DENSITY STUDY 12/25/2024 REASON FOR EXAM: SCREENING F, age 79 y/o . TECHNIQUE: DEXA BONE DENSITY STUDY COMPARISON: DEXA scan on 12/22/2022 FINDINGS: BMD and T-SCORES Lumbar spine: 1.100 g/cm2, T-score 1.1 Levels: L1 and L2 Change from prior: No significant change in BMD.. Left femoral neck: 0.729 g/cm2, T-score -1.1 Femoral neck comparison data not recommended for monitoring change. Prior T-score -1.3 Left total hip: 0.952 g/cm2, T-score 0.1 Change from prior: No significant change in BMD.. Right femoral neck: 0.773 g/cm2, T-score -0.7 Femoral neck comparison data not recommended for monitoring change. Prior T-score -1.0 Right total hip: 0.980 g/cm2, T-score 0.3 Change from prior: No significant change in BMD.. The World Health Organization has defined the following categories based on bone density: Normal bone density: T-score equal to or greater than -1.0 Osteopenia: T-score between -1.0 and -2.5 Osteoporosis: T-score equal to or less than -2.5 FRAX (or Comparable) Fracture Risk Assessment: 10 Year Probability of Fracture: Major Osteoporotic Fracture: 18% Hip Fracture: 4.2% (Note: FRAX is not to be reported in setting of normal range bone density, osteoporosis on DEXA, known history of osteoporosis, prior osteoporotic hip or vertebral fracture, or for any patient undergoing pharmacological treatment for bone loss.) The National Osteoporosis Foundation (NOF) recommends pharmacological treatment for patients with a FRAX 10-year risk of 3% or higher for a hip fracture, or 20% or higher for a major osteoporotic fracture, to prevent osteoporosis and reduce fracture risk. The patient does meet the pharmacological treatment recommendations for prevention of osteoporosis. BD/Dexa Bone Density Study IMPRESSION: OSTEOPENIA. Reading Location: [id number]
== END | disposition home or self-care (01) ==
LOC: OPMRI 09:11
PROVIDERS: PCP Internal Medicine; Referring Provider Internal Medicine Hematology & Oncology; Visit Provider Internal Medicine Hematology & Oncology
DX: Z12.31 Encounter for screening mammogram for malignant neoplasm of breast (principal); C50.311 Malignant neoplasm of lower-inner quadrant of right female breast; Z90.11 Acquired absence of right breast and nipple; Z17.0 Estrogen receptor positive status [ER+]; Z15.09 Genetic susceptibility to other malignant neoplasm; M85.89 Other specified disorders of bone density and structure, multiple sites; M81.0 Age-related osteoporosis without current pathological fracture
CPT/HCPCS: 77049; 77080; A9575; A4216; C8908

== ENCOUNTER → 2025-05-24 | Outpatient (CLI) | payer MEDICARE, OTHER, SELFPAY ==
[2025-05-24 13:09] VITALS: BP 137/57; PULSE 72; RESP 18; O2SAT 98; BMI 28.9
[2025-05-24] MEDS: 0.9% Saline Lock 10 ML Syringe IV (13:15)
--- NOTE | 2025-05-24 13:15 | CT_ITS ---
PROCEDURE: LIMITED CHEST CT CARDIAC ONLY 05/24/2025 REASON FOR EXAM: CHEST PAIN TECHNIQUE: Procedure Code: [id number] Modality: CT Procedure: LIMITED CHEST CT CARDIAC ONLY Contiguous axial scans of 2.5 mm slice thicknesses. One or more dose reduction techniques were used (e.g., automated exposure control, adjustment of mA and/or kv according to patient size, use of iterative reconstruction technique). Evaluation is limited to the non-coronary and non-cardiac findings. Only those areas demonstrated within the [id number] were evaluated. One or more dose reduction techniques were used (e.g., Automated exposure control, adjustment of the mA and/or kV according to patient size, use of iterative reconstruction technique). RADIATION DOSE SUMMARY: CTDlvol: 49.90 mGy DLP: 1421.56 mGycm COMPARISON: CT chest dated 03/08/2023 FINDINGS: NON-CORONARY CARDIAC FINDINGS: The myocardium, valves and pericardium have a normal appearance. NON-CARDIAC FINDINGS: Lungs: Mild parenchymal scarring and/or subsegmental atelectasis, left lung.. Pleural spaces: No fluid, pneumothorax or thickening. Mediastinum:The visualized mediastinum is normal with no lymphadenopathy. Pulmonary vessels: Unremarkable. Chest wall: Status post right mastectomy. Upper abdomen and bones: Normal appearance within the field of view. Atherosclerotic calcific disease of the aorta. CT/Limited Chest CT Cardiac Only IMPRESSION: UNREMARKABLE LIMITED CHEST CT NON-CORONARY AND NON-CARDIAC ANATOMY ONLY. Status post right mastectomy. Mild parenchymal scarring and/or subsegmental atelectasis. Reading Location: [place] [id number]
[2025-05-24 13:25] VITALS: BP 125/52; PULSE 83
[2025-05-24] MEDS: Nitroglycerin SL (ED/IMG/CATH) 0.4 MG TABLET SL (13:25)
[2025-05-24 13:39] VITALS: BP 125/52; PULSE 83; RESP 18; O2SAT 94
== END | disposition home or self-care (01) ==
LOC: CT 12:50
PROVIDERS: PCP Student in an Organized Health Care Education/Training Program; Referring Provider Internal Medicine Cardiovascular Disease; Visit Provider Internal Medicine Cardiovascular Disease
DX: I34.1 Nonrheumatic mitral (valve) prolapse (principal); R07.9 Chest pain, unspecified
CPT/HCPCS: 75571; 75574; 76380; Q9967